=== PATIENT | male | born 1960 | race Hispanic/Latino ===

== ENCOUNTER 2016-10-29 14:36 | Emergency (ER) | payer SELFPAY ==
[2016-10-29 14:49] VITALS: BP 120/60
[2016-10-29] MEDS ORDERED: FUL-GLO OP ONE (16:38)
[2016-10-29] MEDS ORDERED: TETRACAINE 0.5% OD STA (16:38)
--- NOTE | 2016-10-29 18:22 | Emergency Department Report ---
Entered by DYAN MCCLELLAND, acting as scribe for KASANDRA OLIVEROS NP. ED Eye Problem HPI - General Chief complaint: Eye Problems Stated complaint: EYE PAIN Time Seen by Provider: 10/29/16 16:38 Source: patient Mode of arrival: Ambulatory Limitations: No Limitations - History of Present Illness Initial comments: Patient is a 56 y.o. male who presents to ED c/o three day hx of constant, progressively worsening, 10/10, right eye pain that began while he was laying down on the bed in his hotel room. PT states something got into his eye but he is not sure what it was. Patient reports associated watery discharge. Patient denies fever, chills, or N/V. He does not wear glasses or contacts at baseline. Patient states that his Tetanus is UTD. MD chief complaint: eye pain -: days(s) (three days ago) Location: right eye Place: other (hotel room) If Injury: other (felt fb ) Eye Symptoms: redness, pain, discharge Severity scale (0 -10): 10 Consistency: constant Associated Symptoms: other (watery discharge) Treatments Prior to Arrival: none - Related Data Patient Tetanus UTD: Yes Previous Rx's Medication Instructions Recorded Last Taken Type Acetaminophen/Codeine [Tylenol #3] 1 tab PO Q6H PRN #12 tab 10/29/16 Unknown Rx Erythromycin [Erythromycin Ophth 1 cm OD QID 7 Days 10/29/16 Unknown Rx Oint] Sulfamethoxazole/Trimethoprim 1 each PO BID #14 tablet 10/29/16 Unknown Rx [Bactrim DS TAB] Allergies Allergy/AdvReac Type Severity Reaction Status Date / Time No Known Allergies Allergy Verified 10/29/16 14:42 ED Review of Systems Comment: All other systems reviewed and negative Constitutional: denies: chills, fever Eyes: as per HPI, eye pain (right eye), eye discharge (right eye), other ( Negative for left eye pain or discharge) ENT: denies: ear pain, throat pain, dental pain, epistaxis Respiratory: denies: cough, shortness of breath, wheezing Cardiovascular: denies: chest pain, palpitations Gastrointestinal: denies: abdominal pain, nausea, vomiting, diarrhea Genitourinary: denies: urgency, dysuria Musculoskeletal: denies: back pain, joint swelling, arthralgia, myalgia Skin: denies: rash, lesions Neurological: denies: headache, weakness, paresthesias Psychiatric: denies: anxiety, depression ED Past Medical Hx - Past Medical History Hx Diabetes: No Hx Liver Disease: Yes (cirrhosis) Hx Asthma: Yes Hx COPD: Yes Hx Tuberculosis: Yes (treated with meds) Hx HIV: Yes Additional medical history: Hx. of pneumonia - Surgical History Past Surgical History?: No - Social History Smoking Status: Never Smoker Substance Use Type: None - Medications Home Medications: Home Medications Medication Instructions Recorded Confirmed Last Taken Type Acetaminophen/Codeine [Tylenol #3] 1 tab PO Q6H PRN #12 tab 10/29/16 Unknown Rx Erythromycin [Erythromycin Ophth 1 cm OD QID 7 Days 10/29/16 Unknown Rx Oint] Sulfamethoxazole/Trimethoprim 1 each PO BID #14 tablet 10/29/16 Unknown Rx [Bactrim DS TAB] ED Physical Exam - General Limitations: No Limitations General appearance: alert, in no apparent distress - Head Head exam: Present: atraumatic, normocephalic, normal inspection - Eye Eye exam: Present: PERRL, EOMI, conjunctival injection, other (Right eye: Eyelid erythematous, but not edematous. Right conjunctiva is injected. Two corneal abrasions noted on the Wood's exam. Eye is draining. Left eye: Normal. No fb seen ). Absent: normal appearance, periorbital swelling, periorbital tenderness Pupils: Present: normal accommodation - Expanded Eye Exam Expanded Eyelids: Normal Inspection: Left, Erythema: Right Pupils: Regular, Round: Right Sclera/Conjunctival: Injection: Right, Exudate: Right Anterior chamber: Normal Inspection: Right Visual acuity (R) = 20/: 100 Visual acuity (L) = 20/: 30 With correction: No - ENT ENT exam: Present: normal exam, normal orophraynx, mucous membranes moist, normal external ear exam - Neck Neck exam: Present: normal inspection, full ROM. Absent: tenderness, meningismus, lymphadenopathy, thyromegaly - Respiratory Respiratory exam: Present: rhonchi (hx of copd. pt denies sob ). Absent: respiratory distress, chest wall tenderness, accessory muscle use (Normal work of breathing. ) - Cardiovascular Cardiovascular Exam: Present: regular rate, normal rhythm. Absent: systolic murmur, diastolic murmur, rubs, gallop - GI/Abdominal GI/Abdominal exam: Present: soft. Absent: distended, tenderness - Rectal Rectal exam: Present: deferred - Extremities Exam Extremities exam: Present: normal inspection, full ROM, normal capillary refill. Absent: tenderness - Back Exam Back exam: Present: normal inspection, full ROM - Neurological Exam Neurological exam: Present: alert, oriented X3 - Skin Skin exam: Present: warm, dry, intact, normal color. Absent: rash, cyanosis, diaphoretic ED Course Vital Signs 10/29/16 14:46 Temperature 97.8 F Pulse Rate 76 Respiratory 17 Rate Blood Pressure 120/60 O2 Sat by Pulse 99 Oximetry - Reevaluation(s) Reevaluation #1: 10/29/16 17:38 PT states tetracaine helped decrease his pain. PT aware of abnormal PE findings. PT aware of plan of care. PT has no questions at this time. Reevaluation #2: 10/29/16 18:19 PT was originally unable to read eye chart with R eye. PT was holding his R eye shut. PT aware visual acuity was needed and I offered to repeat tetracaine gtt and retry visual acuity. When pt reported decrease in pain, he was able to read the first two lines of [place] chart and then his R eye became painful again. PT refused to attempt to complete visual acuity testing. - Pulse Oximetry Interpretation Digit-Finger Initial Pulse Oximetry Readin Actions Taken: none ED Medical Decision Making - Differential Diagnosis conjunctivitis, corneal abrasion, fb Critical Care Time: No ED Disposition Clinical Impression: Corneal abrasion, right Qualifiers: Encounter type: initial encounter Qualified Code(s): S05.01XA - Injury of conjunctiva and corneal abrasion without foreign body, right eye, initial encounter Disposition: - TO HOME OR SELFCARE Is pt being admited?: No Does the pt Need Aspirin: No Condition: Stable Instructions: Corneal Abrasion (ED) Additional Instructions: No driving or alcohol after taking Tylenol #3 for pain follow up with an eye doctor in 2-3 days Return to ED if worsening or concerns Prescriptions: Acetaminophen/Codeine [Tylenol #3] 1 tab PO Q6H PRN #12 tab PRN Reason: Pain , Severe (7-10) Erythromycin [Erythromycin Ophth Oint] 1 cm OD QID 7 Days Sulfamethoxazole/Trimethoprim [Bactrim DS TAB] 1 each PO BID #14 tablet Referrals: HIRAL KIM MD [Staff Physician] - 3-5 Days SONJA FLANNERY MD [Staff Physician] - 3-5 Days PRIMARY CARE, [Primary Care Provider] - 3-5 Days Time of Disposition: 17:45 This documentation as recorded by the KRYSTIN slater KELLY,accurately reflects the service I personally performed and the decisions made by ,KASANDRA OLIVEROS , [employer].
== END 2016-10-29 18:36 | disposition home or self-care (01) ==
LOC: ED 14:36
DX: S05.01XA Injury of conjunctiva and corneal abrasion without foreign body, right eye, initial encounter (principal); J45.909 Unspecified asthma, uncomplicated; K74.60 Unspecified cirrhosis of liver; J44.9 Chronic obstructive pulmonary disease, unspecified; Z86.11 Personal history of tuberculosis; X58.XXXA Exposure to other specified factors, initial encounter; Y93.89 Activity, other specified; Y92.89 Other specified places as the place of occurrence of the external cause; Y99.8 Other external cause status
CPT/HCPCS: 99283

== ENCOUNTER 2017-07-31 10:16 | Inpatient (IN) | payer OTHER ==
[2017-07-31] MEDS ORDERED: ZOFRAN IV ONE (10:45)
[2017-07-31] MEDS ORDERED: NACL 0.9% 1000 ML 1,000 ML IV ONE (10:45)
[2017-07-31 11:21] LABS: Basophils % (Auto) 0.8 % (0.0-1.8); Eosinophils # (Auto) 0.1 K/mm3 (0.0-0.4); Eosinophils % (Auto) 1.6 % (0.0-4.3); Hematocrit 26.5 % (35.5-45.6); Hemoglobin 8.8 gm/dl (11.8-15.2); Lymphocytes # (Auto) 1.2 K/mm3 (1.2-5.4); Lymphocytes % (Auto) 24.6 % (13.4-35.0); Mean Corpuscular HGB Conc 33 % (32-34); Mean Corpuscular Hemoglobin 36 pg (28-32); Mean Corpuscular Volume 108 fl (84-94); Monocytes # (Auto) 0.4 K/mm3 (0.0-0.8); Monocytes % (Auto) 8.7 % (0.0-7.3); Red Blood Count 2.45 M/mm3 (3.65-5.03); Red Cell Distribution Width 19.4 % (13.2-15.2)
[2017-07-31 11:23] LABS: Alanine Aminotransferase 101 units/L (7-56); Albumin 1.4 g/dL (3.9-5); BUN/Creatinine Ratio 24; Bilirubin,Direct 3.6 mg/dL (0-0.2); Blood Urea Nitrogen 19 mg/dL (9-20); Calcium 7.2 mg/dL (8.4-10.2); Hemolysis Index 4; Lipase 28 units/L (13-60); Platelet Count 68 K/mm3 (140-440)
[2017-07-31 11:36] LABS: INR 2.51 (0.87-1.13)
[2017-07-31 11:37] LABS: Partial Thromboplastin Time 42.2 Sec. (24.2-36.6)
[2017-07-31] MEDS ORDERED: SODIUM BICARBONATE IV ONE ×2 (11:44→12:55)
[2017-07-31] MEDS ORDERED: CALCIUM CHLORIDE IVP ONE (11:44)
[2017-07-31] MEDS ORDERED: D50W (25GM) Syringe IV ONE (11:44)
[2017-07-31] MEDS ORDERED: HumuLIN R IV ONE (11:45)
[2017-07-31] MEDS ORDERED: NACL 0.9% 500 ML 500 ML IV ONE ×2 (11:46→17:28)
[2017-07-31] MEDS ORDERED: PROTONIX IV ONE (11:47)
--- NOTE | 2017-07-31 12:35 | XRay Report ---
AP CHEST: HISTORY: GI bleeding The lungs are hyperinflated with scarring and atelectasis throughout the right upper lobe. These findings are unchanged since 03/01/16. There is no evidence for acute infiltrate, pleural effusion or pneumothorax. Normal heart size. IMPRESSION: Hyperinflation. Apparent chronic collapse or extensive cystic changes in the right upper lobe which is unchanged.
--- NOTE | 2017-07-31 12:37 | History and Physical Report ---
History of Present Illness Chief complaint: I'm bleeding History of present illness: 56 Y Male with AIDS S/P PCP Prophylaxis, TB S/P Full course antibiotic therapy, Unknown CD4 count, Medication Noncompliance, HIV, HBV, Cirrhosis,COPD presents to ED for evaluation. Pt states that he has experienced multiple episodes of rectal bleeding overnight. Pt denies pain. Pt admits to 4-5 loose stools containing blood this morning. EMS notified and upon arrival patient was found to have rectal bleeding, dizziness, and abdominal discomfort. Pt transported to [facility] for further care and evaluation. Pt seen and evaluated in ED and found to have multiple large bloody bowel movements complicated by hypotension with systolic BP in the 80's. GI consulted in ED and patient treated with PRBC transfusion, Octreotide, and supportive care. Pt admitted to ICU. PT denies fever, chills, night sweats, unintentional weight loss chest pain, palpitation, dysuria, frequency, focal weakness, dysarthria, easy bruisability, or rash or bleeding from mucosal membrane, rhinorrhea, epistaxis, earache, tinnitus, blurry vision, eye discharge, anxiety, depression, productive cough, or recent ill contacts. Past History Past Medical History: COPD, HIV/AIDS, liver disease Past Surgical History: No surgical history, Other (reviewed) Social history: single. denies: smoking, alcohol abuse, prescription drug abuse Family history: no significant family history (reviewed) Medications and Allergies Allergies Allergy/AdvReac Type Severity Reaction Status Date / Time No Known Allergies Allergy Verified 10/29/16 14:42 Home Medications Medication Instructions Recorded Confirmed Last Taken Type Acetaminophen/Codeine [Tylenol #3] 1 tab PO Q6H PRN #12 tab 10/29/16 Unknown Rx Erythromycin [Erythromycin Ophth 1 cm OD QID 7 Days tube 10/29/16 Unknown Rx Oint] Sulfamethoxazole/Trimethoprim 1 each PO BID #14 tablet 10/29/16 Unknown Rx [Bactrim DS TAB] Active Meds: Active Medications Octreotide Acetate 500 mcg/ (Sodium Chloride) 101 mls @ 5.05 mls/hr IV TITR ONE ; Protocol Stop: 08/01/17 09:19 Review of Systems Constitutional: no weight loss, no weight gain, no fever, no chills Ears, nose, mouth and throat: no ear pain, no ear discharge, no tinnitis, no decreased hearing, no nose pain Cardiovascular: no chest pain, no orthopnea, no palpitations Respiratory: no cough, no cough with sputum, no excessive sputum, no hemoptysis , no shortness of breath Gastrointestinal: no nausea, no vomiting, no diarrhea, no constipation Genitourinary Male: no dysuria, no hematuria, no flank pain, no discharge, no urinary frequency, no urinary hesitancy Rectal: no pain, no incontinence, no bleeding Musculoskeletal: no neck stiffness, no neck pain, no shooting arm pain, no arm numbness/tingling, no low back pain, no shooting leg pain Integumentary: no rash, no pruritis, no redness, no sores, no wounds Neurological: no head injury, no transient paralysis, no paralysis, no weakness , no parathesias, no numbness, no tingling, no seizures, no syncope Psychiatric: no anxiety, no memory loss, no change in sleep habits, no sleep disturbances, no insomnia, no hypersomnia, no change in appetite, no change in libido, no paranoia, no depression, no hopelessness, no anhedonia, no anxiety attacks Endocrine: no cold intolerance, no heat intolerance, no polyphagia, no excessive thirst, no polydipsia, no polyuria, no nocturia Hematologic/Lymphatic: no easy bruising, no easy bleeding, no lymphadenopathy, no lymphedema Allergic/Immunologic: no urticaria, no allergic rhinitis, no wheezing, no persistent infections, no anaphylaxis, no angioedema, no gluten intolerance, no seasonal allergies Exam - Constitutional Vitals: Temp Pulse Resp BP Pulse Ox 98.3 F 84 20 107/71 100 07/31/17 10:30 07/31/17 10:30 07/31/17 10:53 07/31/17 10:30 07/31/17 10:53 General appearance: Present: mild distress, cachectic, disheveled - EENT Eyes: Present: PERRL ENT: hearing intact, clear oral mucosa - Neck Neck: Present: supple, normal ROM - Respiratory Respiratory effort: normal Respiratory: bilateral: CTA - Cardiovascular Heart Sounds: Present: S1 & S2. Absent: rub, click - Extremities Extremities: pulses symmetrical, No edema Peripheral Pulses: within normal limits - Abdominal General gastrointestinal: Present: soft, non-tender, non-distended, normal bowel sounds Male genitourinary: Present: normal - Integumentary Integumentary: Present: clear, warm, dry - Musculoskeletal Musculoskeletal: gait normal, strength equal bilaterally - Psychiatric Psychiatric: appropriate mood/affect, intact judgment & insight - Neurologic Neurologic: CNII-XII intact, moves all extremities Results - Labs CBC & Chem 7: 07/31/17 10:50 07/31/17 10:50 Labs: Abnormal lab results 07/31/17 07/31/17 07/31/17 Range/Units 10:50 10:50 10:50 RBC 2.45 L (3.65-5.03) M/mm3 Hgb 8.8 L (11.8-15.2) gm/dl Hct 26.5 L (35.5-45.6) % MCV 108 H (84-94) fl MCH 36 H (28-32) pg RDW 19.4 H (13.2-15.2) % Plt Count 68 L (140-440) K/mm3 [place] % (Auto) 8.7 H (0.0-7.3) % PT 28.8 H (12.2-14.9) Sec. INR 2.51 H (0.87-1.13) APTT 42.2 H (24.2-36.6) Sec. Potassium 6.6 H* (3.6-5.0) mmol/L Lactic Acid (0.7-2.0) mmol/L Calcium 7.2 L (8.4-10.2) mg/dL Total Bilirubin 5.70 H (0.1-1.2) mg/dL Direct Bilirubin 3.6 H (0-0.2) mg/dL AST 238 H (5-40) units/L ALT 101 H (7-56) units/L Ammonia (25-60) umol/L Albumin 1.4 L (3.9-5) g/dL Crossmatch 07/31/17 07/31/17 07/31/17 Range/Units 10:50 10:50 10:50 RBC (3.65-5.03) M/mm3 Hgb (11.8-15.2) gm/dl Hct (35.5-45.6) % MCV (84-94) fl MCH (28-32) pg RDW (13.2-15.2) % Plt Count (140-440) K/mm3 [place] % (Auto) (0.0-7.3) % PT (12.2-14.9) Sec. INR (0.87-1.13) APTT (24.2-36.6) Sec. Potassium (3.6-5.0) mmol/L Lactic Acid 3.70 H* (0.7-2.0) mmol/L Calcium (8.4-10.2) mg/dL Total Bilirubin (0.1-1.2) mg/dL Direct Bilirubin (0-0.2) mg/dL AST (5-40) units/L ALT (7-56) units/L Ammonia 69.0 H (25-60) umol/L Albumin (3.9-5) g/dL Crossmatch See Detail Assessment and Plan - Patient Problems (1) GI bleeding Current Visit: Yes Status: Acute Qualifiers: GI bleed type/associated pathology: unspecified gastrointestinal hemorrhage type Qualified Code(s): K92.2 - Gastrointestinal hemorrhage, unspecified Plan to address problem: Admit to ICU, GI consulted in ED, PRBC transfusion, Octreotide drip, serial abdominal exam, NPO after midnight, bowel rest, serial cbc, IV PPI therapy The high probability of a clinically significant, sudden or life threatening deterioration of the [GI, Hematologic, cardiac,renal] system(s) required my full and direct attention, intervention and personal management. The aggregate critical care time was [65] minutes. This time is in addition to time spent performing reported procedures but includes the following: [x] Data Review and interpretation [x] Patient assessment and monitoring of vital signs [x] Documentation [x] Medication orders and management (2) AIDS Current Visit: Yes Status: Acute Plan to address problem: Noncompliant with outpatient therapy, non compliant with PCP prophylaxis, continue antibiotic therapy, outpatient ID f/u care. (3) Cirrhosis Current Visit: Yes Status: Chronic Qualifiers: Hepatic cirrhosis type: alcoholic cirrhosis Ascites presence: without ascites Qualified Code(s): K70.30 - Alcoholic cirrhosis of liver without ascites Plan to address problem: secondary to Chronic liver disease, avoid hepatotoxic agents, supportive care. (4) Coagulopathy Current Visit: Yes Status: Acute Plan to address problem: transfuse FFP, supportive care, monitor active GI bleeding. (5) DVT prophylaxis Current Visit: Yes Status: Acute Plan to address problem: SCD to BLE,.
[2017-07-31] MEDS ORDERED: SODIUM CHLORIDE FLUSH SYRINGE 10 ML IV PRN (12:47)
[2017-07-31] MEDS ORDERED: PROVENTIL IH PRN (12:47)
[2017-07-31] MEDS ORDERED: CALCIUM CHLORIDE IV ONE (12:55)
[2017-07-31] MEDS ORDERED: SandoSTATIN 500 MCG in NACL 0.9% 100 ML IV ONE (13:20)
[2017-07-31] MEDS ORDERED: NACL 0.9% 1000 ML 1,000 ML ONE ×2 (13:59→17:25)
--- NOTE | 2017-07-31 14:20 | Gastroenterology Consultation ---
History of Present Illness - Reason for Consult Consult date: 07/31/17 GI Bleed Requesting physician: RENATE NEUMANN - History of Present Illness The patient is a 56 yo male admitted with hematemesis and hematochezia. He has a hx of GI bleeding in April 2016 with DU and at [place], due to NSAID use, but no hx of variceal bleeding per the patient, despite a hx of cirrhosis for several years (Hep B, not on treatment). He also has HIV and is noncompliant with treatment, except bactrim. He was using some advil recently for a headache. He does not know his current CD4 count. He has no N/V since being in the ER, and his last BM was bloody and about 4 hours ago. He denies severe abdominal pain, and says he is hungry and wants to eat. He has no family hx of GI bleeding, and the patient has had no prior surgery on his abdomen. Past History Past Medical History: HIV/AIDS (noncompliant with [facility]), liver disease ( Hepatitis B/cirrhosis) Past Surgical History: No surgical history Social history: denies: smoking, alcohol abuse, IV drug use Family history: no significant family history Medications and Allergies Allergies Allergy/AdvReac Type Severity Reaction Status Date / Time No Known Allergies Allergy Verified 10/29/16 14:42 Home Medications Medication Instructions Recorded Confirmed Last Taken Type Acetaminophen/Codeine [Tylenol #3] 1 tab PO Q6H PRN #12 tab 10/29/16 Unknown Rx Erythromycin [Erythromycin Ophth 1 cm OD QID 7 Days tube 10/29/16 Unknown Rx Oint] Sulfamethoxazole/Trimethoprim 1 each PO BID #14 tablet 10/29/16 Unknown Rx [Bactrim DS TAB] Active Meds: Active Medications Acetaminophen/Codeine Phosphate (Tylenol #3) 1 tab PO Q6H PRN PRN Reason: Pain , Severe (7-10) Albuterol (Proventil) 2.5 mg IH Q3HRT PRN PRN Reason: Shortness Of Breath Octreotide Acetate 500 mcg/ (Sodium Chloride) 101 mls @ 5.05 mls/hr IV TITR ONE ; Protocol Stop: 08/01/17 09:19 Last Admin: 07/31/17 14:10 Dose: 25 mcg/hr, 5.05 mls/hr Pantoprazole Sodium (Protonix) 40 mg IV BID RENETTA Sodium Chloride (Sodium Chloride Flush Syringe 10 Ml) 10 ml IV BID RENETTA Sodium Chloride (Sodium Chloride Flush Syringe 10 Ml) 10 ml IV PRN PRN PRN Reason: LINE FLUSH Trimethoprim/Sulfamethoxazole (Bactrim Ds) 1 each PO BID RENETTA --I HAVE REVIEWED AND RECONCILED MEDICATIONS-- Review of Systems - Review of Systems All systems: negative (as noted in the HPI.) Exam - Constitutional Vital Signs: Temp Pulse Resp BP Pulse Ox 98.3 F 84 20 108/51 100 07/31/17 10:30 07/31/17 10:30 07/31/17 10:53 07/31/17 13:52 07/31/17 13:52 General appearance: no acute distress - EENT Eyes: PERRL, EOM intact ENT: hearing intact, clear oral mucosa, no thrush - Neck Neck: supple, normal ROM - Respiratory Respiratory effort: normal Respiratory: bilateral: CTA - Breasts Breasts: deferred - Cardiovascular Rhythm: regular Heart Sounds: Present: S1 & S2 - Gastrointestinal General gastrointestinal: Present: soft, non-tender, non-distended - Integumentary Integumentary: Present: clear, warm, dry - Neurologic Neurological: alert and oriented x3 - Labs CBC & Chem 7: 07/31/17 10:50 07/31/17 10:50 Lab Results: Laboratory Results - last 24 hr 07/31/17 07/31/17 07/31/17 10:50 10:50 10:50 WBC 5.0 RBC 2.45 L Hgb 8.8 L Hct 26.5 L MCV 108 H MCH 36 H MCHC 33 RDW 19.4 H Plt Count 68 L Lymph % (Auto) 24.6 [place] % (Auto) 8.7 H Eos % (Auto) 1.6 Baso % (Auto) 0.8 Lymph # 1.2 [place] # 0.4 Eos # 0.1 Baso # 0.0 Seg Neutrophils % 64.3 Seg Neutrophils # 3.2 PT 28.8 H INR 2.51 H APTT 42.2 H Sodium 137 Potassium 6.6 H* Chloride 106.4 Carbon Dioxide 29 Anion Gap 8 BUN 19 Creatinine 0.8 Estimated GFR > 60 BUN/Creatinine Ratio 24 Glucose 88 Lactic Acid Calcium 7.2 L Magnesium 1.90 Total Bilirubin 5.70 H Direct Bilirubin 3.6 H Indirect Bilirubin 2.1 AST 238 H ALT 101 H Alkaline Phosphatase 102 Ammonia Total Protein 6.9 Albumin 1.4 L Albumin/Globulin Ratio 0.3 Lipase 28 Plasma/Serum Alcohol Blood Type Antibody Screen Crossmatch 07/31/17 07/31/17 07/31/17 10:50 10:50 10:50 WBC RBC Hgb Hct MCV MCH MCHC RDW Plt Count Lymph % (Auto) [place] % (Auto) Eos % (Auto) Baso % (Auto) Lymph # [place] # Eos # Baso # Seg Neutrophils % Seg Neutrophils # PT INR APTT Sodium Potassium Chloride Carbon Dioxide Anion Gap BUN Creatinine Estimated GFR BUN/Creatinine Ratio Glucose Lactic Acid 3.70 H* Calcium Magnesium Total Bilirubin Direct Bilirubin Indirect Bilirubin AST ALT Alkaline Phosphatase Ammonia 69.0 H Total Protein Albumin Albumin/Globulin Ratio Lipase Plasma/Serum Alcohol Blood Type O POSITIVE Antibody Screen Negative Crossmatch See Detail 07/31/17 12:56 WBC RBC Hgb Hct MCV MCH MCHC RDW Plt Count Lymph % (Auto) [place] % (Auto) Eos % (Auto) Baso % (Auto) Lymph # [place] # Eos # Baso # Seg Neutrophils % Seg Neutrophils # PT INR APTT Sodium Potassium Chloride Carbon Dioxide Anion Gap BUN Creatinine Estimated GFR BUN/Creatinine Ratio Glucose Lactic Acid Calcium Magnesium Total Bilirubin Direct Bilirubin Indirect Bilirubin AST ALT Alkaline Phosphatase Ammonia Total Protein Albumin Albumin/Globulin Ratio Lipase Plasma/Serum Alcohol < 0.01 Blood Type Antibody Screen Crossmatch Assessment and Plan - Patient Problems (1) GI bleeding Current Visit: Yes Status: Acute Qualifiers: GI bleed type/associated pathology: unspecified gastrointestinal hemorrhage type Qualified Code(s): K92.2 - Gastrointestinal hemorrhage, unspecified Plan to address problem: - Hx of /DU but also ESLD with varices on prior imaging (but no hx of variceal bleeding). - Will continue protonix/octreotide. - Patient to get PRBC/FFP, and recheck of K. - Plan upper endoscopy when clinically appropriate.
[2017-07-31] MEDS: PROTONIX IV SCH ×2 (15:02→21:14)
--- NOTE | 2017-07-31 15:21 | Emergency Department Report ---
ED General Adult HPI - General Chief complaint: Abdominal Pain Stated complaint: ABD PAIN Time Seen by Provider: 07/31/17 10:43 Source: patient, EMS Mode of arrival: Stretcher Limitations: No Limitations - History of Present Illness Initial comments: This is a 56-year-old man who presents for evaluation of GI bleeding. Patient states that he has been passing bright red blood per rectum. He states this morning he vomited dark material. He is not complaining of abdominal pain. He is a poor historian. He has a history of HIV and is noncompliant with his medication. He also has a history of cirrhosis secondary to hepatitis B and COPD. He is not known to have esophageal varices. However the patient cannot really recount whether he ever had upper endoscopy but seems to think that he had a normal colonoscopy. He is probably not a very reliable historian. -: days(s) Consistency: intermittent Improves with: none Worsens with: none Associated Symptoms: nausea/vomiting Treatments Prior to Arrival: none - Related Data Previous Rx's Medication Instructions Recorded Last Taken Type Acetaminophen/Codeine [Tylenol #3] 1 tab PO Q6H PRN #12 tab 10/29/16 Unknown Rx Erythromycin [Erythromycin Ophth 1 cm OD QID 7 Days tube 10/29/16 Unknown Rx Oint] Sulfamethoxazole/Trimethoprim 1 each PO BID #14 tablet 10/29/16 Unknown Rx [Bactrim DS TAB] Allergies Allergy/AdvReac Type Severity Reaction Status Date / Time No Known Allergies Allergy Verified 10/29/16 14:42 ED Review of Systems ROS: Stated complaint: ABD PAIN Other details as noted in HPI Constitutional: denies: chills, fever Eyes: denies: eye pain, eye discharge, vision change ENT: denies: ear pain, throat pain Respiratory: denies: cough, shortness of breath, wheezing Cardiovascular: denies: chest pain, palpitations Endocrine: no symptoms reported Gastrointestinal: nausea, vomiting, hematochezia. denies: abdominal pain Genitourinary: denies: urgency, dysuria Musculoskeletal: denies: back pain, joint swelling, arthralgia Skin: denies: rash, lesions Neurological: denies: headache, weakness, paresthesias Psychiatric: denies: anxiety, depression Hematological/Lymphatic: denies: easy bleeding, easy bruising ED Past Medical Hx - Past Medical History Hx Diabetes: No Hx Liver Disease: Yes (cirrhosis) Hx Asthma: Yes Hx COPD: Yes Hx Tuberculosis: Yes (treated with meds) Hx HIV: Yes Additional medical history: Hx. of pneumonia - Social History Smoking Status: Never Smoker Substance Use Type: None - Medications Home Medications: Home Medications Medication Instructions Recorded Confirmed Last Taken Type Acetaminophen/Codeine [Tylenol #3] 1 tab PO Q6H PRN #12 tab 10/29/16 Unknown Rx Erythromycin [Erythromycin Ophth 1 cm OD QID 7 Days tube 10/29/16 Unknown Rx Oint] Sulfamethoxazole/Trimethoprim 1 each PO BID #14 tablet 10/29/16 Unknown Rx [Bactrim DS TAB] ED Physical Exam - General Limitations: No Limitations General appearance: alert, in no apparent distress - Head Head exam: Present: atraumatic, normocephalic - Eye Eye exam: Present: scleral icterus. Absent: PERRL, EOMI - ENT ENT exam: Present: mucous membranes moist - Neck Neck exam: Present: normal inspection. Absent: tenderness, meningismus - Respiratory Respiratory exam: Present: normal lung sounds bilaterally. Absent: respiratory distress - Cardiovascular Cardiovascular Exam: Present: regular rate, normal rhythm. Absent: systolic murmur, diastolic murmur, rubs, gallop - GI/Abdominal GI/Abdominal exam: Present: soft, normal bowel sounds, organomegaly ( hepatomegaly or ascites not evident). Absent: distended, tenderness, guarding, rebound, rigid - Rectal Rectal exam: Present: other (patient has some blood blood on his garments but no active rectal bleeding) - Extremities Exam Extremities exam: Present: other (club fingers bilaterally) - Back Exam Back exam: Present: normal inspection - Neurological Exam Neurological exam: Present: alert, oriented X3, CN II-XII intact. Absent: motor sensory deficit - Psychiatric Psychiatric exam: Present: anxious, flat affect - Skin Skin exam: Present: warm, dry, intact, normal color. Absent: rash ED Course Vital Signs 07/31/17 07/31/17 07/31/17 10:22 10:30 10:32 Temperature 98.3 F Pulse Rate 84 Respiratory Rate Blood Pressure 107/71 O2 Sat by Pulse 100 98 100 Oximetry 07/31/17 07/31/17 07/31/17 10:46 10:53 11:00 Temperature Pulse Rate Respiratory 20 Rate Blood Pressure 84/56 O2 Sat by Pulse 100 100 100 Oximetry 04/24/18 04/24/18 04/24/18 11:16 11:30 11:46 Temperature Pulse Rate Respiratory Rate Blood Pressure 93/50 99/69 99/69 O2 Sat by Pulse 99 97 98 Oximetry 07/31/17 07/31/17 07/31/17 12:00 12:16 12:30 Temperature Pulse Rate Respiratory Rate Blood Pressure 99/64 84/56 100/61 O2 Sat by Pulse 99 99 100 Oximetry 07/31/17 07/31/17 07/31/17 12:46 13:00 13:30 Temperature 98.5 F Pulse Rate 70 Respiratory 18 Rate Blood Pressure 99/69 108/51 101/50 O2 Sat by Pulse 100 100 Oximetry 07/31/17 07/31/17 07/31/17 13:45 13:52 14:00 Temperature 98.5 F 98.5 F Pulse Rate 68 71 Respiratory 18 20 Rate Blood Pressure 98/52 108/51 101/58 O2 Sat by Pulse 100 100 Oximetry 07/31/17 07/31/17 07/31/17 14:02 14:15 14:30 Temperature Pulse Rate 55 L 80 87 Respiratory 11 L 21 14 Rate Blood Pressure 90/48 98/52 O2 Sat by Pulse 93 Oximetry 07/31/17 07/31/17 14:45 14:50 Temperature 98.4 F Pulse Rate 71 68 Respiratory 17 18 Rate Blood Pressure 101/55 94/50 O2 Sat by Pulse 97 Oximetry - Reevaluation(s) Reevaluation #1: The patient was given hyperkalemia cocktail. He was transfused. His platelet count was also noted to be 16,000. He had a coagulopathy and FFP was ordered. He was empirically placed on octreotide after discussion of the case with Dr. Daniel. At this time he has already been admitted to the hospital by Dr. Saavedra and has been seen by Dr. daniel. 07/31/17 15:28 ED Medical Decision Making - Lab Data Result diagrams: 07/31/17 10:50 07/31/17 10:50 Laboratory Results - last 24 hr 07/31/17 07/31/17 07/31/17 10:50 10:50 10:50 WBC 5.0 RBC 2.45 L Hgb 8.8 L Hct 26.5 L MCV 108 H MCH 36 H MCHC 33 RDW 19.4 H Plt Count 68 L Lymph % (Auto) 24.6 [place] % (Auto) 8.7 H Eos % (Auto) 1.6 Baso % (Auto) 0.8 Lymph # 1.2 Ward # 0.4 Eos # 0.1 Baso # 0.0 Seg Neutrophils % 64.3 Seg Neutrophils # 3.2 PT 28.8 H INR 2.51 H APTT 42.2 H Sodium 137 Potassium 6.6 H* Chloride 106.4 Carbon Dioxide 29 Anion Gap 8 BUN 19 Creatinine 0.8 Estimated GFR > 60 BUN/Creatinine Ratio 24 Glucose 88 Lactic Acid Calcium 7.2 L Magnesium 1.90 Total Bilirubin 5.70 H Direct Bilirubin 3.6 H Indirect Bilirubin 2.1 AST 238 H ALT 101 H Alkaline Phosphatase 102 Ammonia Total Protein 6.9 Albumin 1.4 L Albumin/Globulin Ratio 0.3 Lipase 28 Blood Type Antibody Screen Crossmatch 07/31/17 07/31/17 07/31/17 10:50 10:50 10:50 WBC RBC Hgb Hct MCV MCH MCHC RDW Plt Count Lymph % (Auto) [place] % (Auto) Eos % (Auto) Baso % (Auto) Lymph # [place] # Eos # Baso # Seg Neutrophils % Seg Neutrophils # PT INR APTT Sodium Potassium Chloride Carbon Dioxide Anion Gap BUN Creatinine Estimated GFR BUN/Creatinine Ratio Glucose Lactic Acid 3.70 H* Calcium Magnesium Total Bilirubin Direct Bilirubin Indirect Bilirubin AST ALT Alkaline Phosphatase Ammonia 69.0 H Total Protein Albumin Albumin/Globulin Ratio Lipase Blood Type O POSITIVE Antibody Screen Negative Crossmatch See Detail - EKG Data -: EKG Interpreted by Or EKG shows normal: sinus rhythm, axis, intervals, QRS complexes, ST-T waves Rate: normal - EKG Data Interpretation: no acute changes - Radiology Data Radiology results: report reviewed (extensive cystic changes of the right upper lobe unchanged from previous x-ray no acute process per radiologist) Critical Care Time: Yes Critical care time in (mins) excluding proc time.: 90 Critical care attestation.: If time is entered above; I have spent that time in minutes in the direct care of this critically ill patient, excluding procedure time. ED Disposition Clinical Impression: History of HIV infection, Thrombocytopenia, Hyperkalemia, Elevated lactic acid level, Coagulopathy GI bleeding Qualifiers: GI bleed type/associated pathology: unspecified gastrointestinal hemorrhage type Qualified Code(s): K92.2 - Gastrointestinal hemorrhage, unspecified Cirrhosis Qualifiers: Hepatic cirrhosis type: alcoholic cirrhosis Ascites presence: without ascites Qualified Code(s): K70.30 - Alcoholic cirrhosis of liver without ascites Disposition: -09 OP ADMIT IP TO THIS HOSP Is pt being admited?: Yes Does the pt Need Aspirin: No Time of Disposition: 15:32
[2017-07-31] MEDS ORDERED: DIPRIVAN 10 MG/ML IV ONE ×2 (17:28)
[2017-07-31] MEDS ORDERED: XYLOCAINE MPF 2% ONE (17:30)
--- NOTE | 2017-07-31 17:47 | Anesthesia Day of Surgery ---
Anesthesia Day of Surgery - Day of Surgery Patient Examined: Yes Patient H&P Reviewed: Yes Patient is NPO: Yes
--- NOTE | 2017-07-31 17:47 | Anesthesia Consultation ---
Anesthesia Consult and Med Hx Date of service: 07/31/17 - Airway Anesthetic Teeth Evaluation: Partials (upper) ROM Head & Neck: Adequate Mental/Hyoid Distance: Adequate Mallampati Class: Class II Intubation Access Assessment: Probably Good - Pre-Operative Health Status ASA Pre-Surgery Classification: ASA3, Emergency Proposed Anesthetic Plan: MAC - Pulmonary Hx Asthma: Yes COPD: Yes - Gastrointestinal Hx Ulcer: Yes (h/o peptic ulcers) - Endocrine Hx End Stage Renal Disease: No Hx Cirrhosis: Yes Hx Liver Disease: Yes (cirrhosis) - Hematic Hx Anemia: Yes - Additional Comments Anesthesia Medical History Comments: upper GI blleed, HIV, noncomplient with treatment
--- NOTE | 2017-07-31 18:21 | Post Operative Note ---
Pre-op diagnosis: GI bleed Post-op diagnosis: other (DU x 2, hiatal hernia, gastritis, esophagitis) Findings: 1. No active bleeding/clots 2. 2 large (5-7mm) pigment-based ulcers in duodenum without visible vessel seen , but very edematous mucosa 3. Moderate erosive gastritis, cold bx of antrum for H pylori 4. Medium hiatal hernia 5. LA Grade C erosive esophagitis Procedure: EGD with cold biopsy Anesthesia: MAC Surgeon: MARIA ESTHER OSBORNE Estimated blood loss: minimal Pathology: list (1. Gastric antrum) Specimen disposition: to lab Condition: critical Disposition: ICU (Recs: 1. Continue NPO except meds and ice chips. 2. Continue octreotide tonight (d/c tomorrow if stable as no varices present). 3. Continue IV protonix. 4. D/C all NSAIDs. 5. 2nd look EGD tomorrow when edema improved; consider IR embolization if necessary given cirrhosis and ulcers.)
[2017-07-31] MEDS ORDERED: NACL 0.9% 500 ML 500 ML ONE (19:36)
--- NOTE | 2017-07-31 19:46 | Operative Report ---
ENDOSCOPY REPORT PROCEDURE PERFORMED: Esophagogastroduodenoscopy with cold biopsy. PREOPERATIVE DIAGNOSIS: Gastrointestinal bleeding. POSTOPERATIVE DIAGNOSES: Duodenal ulcers, hiatal hernia, esophagitis, gastritis. ENDOSCOPIST: Familia Daniel M.D. INSTRUMENT: adhoclabs video endoscope. MEDICATIONS: MAC anesthesia by [facility]hesia [facility]. COMPLICATIONS: No apparent complications. ESTIMATED BLOOD LOSS: Minimal. SPECIMENS: Gastric antrum. IMPLANTS: None. ASSISTANTS: None. CONDITION AT COMPLETION: Stable. TECHNIQUE: The patient was informed of the risks and benefits of the procedure. He signed the informed consent to proceed. He was placed in left lateral decubitus position. The above sedative medications were given. His vital signs remained stable throughout the procedure. The instrument was advanced from the mouth to the second portion of the duodenum under direct visualization. At that point, the bowel was insufflated and the endoscope was slowly withdrawn. FINDINGS: 1. No active bleeding or blood clots in the upper GI tract. 2. Two large (5 mm -- 7 mm) pigmented based ulcers in the duodenum without a visible vessel seen. Subsequently, however, the tissue surrounding the ulcers was very edematous and visible vessel at the base may have been missed. 3. Moderate erosive gastritis, status post cold biopsy of the antrum for H. pylori. 4. Medium sized hiatal hernia. 5. LA grade C erosive esophagitis. RECOMMENDATIONS: 1. Continue nothing by mouth status except for medications and ice chips. 2. Continue octreotide tonight, but may discontinue it tomorrow if the patient is stable since he has no evidence of varices. 3. Continue IV Protonix. 4. Discontinue all nonsteroidal anti-inflammatory drugs. 5. Second look upper endoscopy tomorrow when the edema in the duodenum has improved; consider Interventional Radiology embolization if necessary given cirrhosis and active ulcer disease. JOB# [id number] DREW/NTS
[2017-07-31 20:38] LABS: Amphetamine Screen,Urine PRESUMPTIVE NEGATIVE; Benzodiazepines Screen,Urine PRESUMPTIVE NEGATIVE; Cannabinoid Screen,Urine PRESUMPTIVE NEGATIVE; Cocaine Screen,Urine PRESUMPTIVE NEGATIVE; Methadone Screen,Urine PRESUMPTIVE NEGATIVE; Opiate Screen,Urine PRESUMPTIVE NEGATIVE
[2017-07-31] MEDS: BACTRIM DS PO SCH (21:14)
[2017-07-31] MEDS: SODIUM CHLORIDE FLUSH SYRINGE 10 ML IV SCH (22:11)
[2017-07-31] MEDS: CARAFATE PO SCH (22:57)
[2017-07-31] MEDS ORDERED: SandoSTATIN 500 MCG in NACL 0.9% 100 ML IV SCH (23:00)
[2017-08-01] MEDS: CARAFATE PO SCH ×4 (01:22→18:36)
[2017-08-01] MEDS: TYLENOL #3 PO PRN (04:10)
[2017-08-01] MEDS: TESSALON PERLES PO PRN (04:16)
[2017-08-01 05:16] LABS: Basophils % (Auto) 0.3 % (0.0-1.8); Eosinophils # (Auto) 0.2 K/mm3 (0.0-0.4); Hemoglobin 7.8 gm/dl (11.8-15.2); Lymphocytes # (Auto) 2.1 K/mm3 (1.2-5.4); Lymphocytes % (Auto) 32.2 % (13.4-35.0); Mean Corpuscular HGB Conc 34 % (32-34); Mean Corpuscular Hemoglobin 35 pg (28-32); Mean Corpuscular Volume 102 fl (84-94); Monocytes # (Auto) 0.6 K/mm3 (0.0-0.8); Monocytes % (Auto) 9.6 % (0.0-7.3); Red Blood Count 2.26 M/mm3 (3.65-5.03)
[2017-08-01 05:17] LABS: Platelet Count 50 K/mm3 (140-440); Red Cell Distribution Width 20.4 % (13.2-15.2)
[2017-08-01 05:39] LABS: BUN/Creatinine Ratio 32; Blood Urea Nitrogen 19 mg/dL (9-20); Calcium 7.2 mg/dL (8.4-10.2); Hemolysis Index 0
--- NOTE | 2017-08-01 08:20 | Progress Note ---
Assessment and Plan Assessment and plan: --Acute upper GI bleeding; Status post EGD 2 large (5-7mm) pigment-based ulcers in duodenum without visible vessel seen, Moderate erosive gastritis, cold bx of antrum for H pylori Medium hiatal hernia LA Grade C erosive esophagitis Possible colonoscopy today --Acute blood loss anemia secondary to upper GI bleeding; Requiring blood transfusion, status post PRBC transfusion Closely monitor H&H, transfuse as needed --HIV AIDS; Stable , patient will follow with health Department upon discharge , ID consultation as needed --Cirrhosis liver; LFTs trending down, consider GI evaluation if needed --Severe protein calorie malnutrition; nutrition supplements and supportive care --DVT prophylaxis; SCD Patient may be transferred out of ICU is stable after endoscopy Plan of care discussed with the patient and his nurse. Critical care time 35 minutes History Interval history: Patient seen and examined medical records reviewed Admitted with GI bleeding, had EGD, received 2 units PRBC Patient feels better,Patient complaints of rectal bleeding Hemoglobin today is 7.8 Vital signs reviewed Hospitalist Physical - Constitutional Vitals: Temp Pulse Resp BP Pulse Ox 98.2 F 88 24 118/50 89 08/01/17 04:00 08/01/17 08:00 08/01/17 08:00 08/01/17 08:00 08/01/17 08:00 General appearance: Present: no acute distress, cachectic, disheveled - EENT Eyes: Present: PERRL, EOM intact - Neck Neck: Present: supple, normal ROM - Respiratory Respiratory effort: normal Respiratory: bilateral: diminished, negative: rales, rhonchi, wheezing - Cardiovascular Rhythm: regular Heart Sounds: Present: S1 & S2 - Extremities Extremities: no ischemia, No edema - Abdominal General gastrointestinal: soft, non-tender, non-distended, normal bowel sounds - Integumentary Integumentary: Present: clear, warm - Psychiatric Psychiatric: appropriate mood/affect, cooperative - Neurologic Neurologic: CNII-XII intact, moves all extremities Results - Labs CBC & Chem 7: 08/01/17 04:01 08/01/17 04:01 Labs: Laboratory Last Values WBC 6.5 K/mm3 (4.5-11.0) 08/01/17 04:01 RBC 2.26 M/mm3 (3.65-5.03) L 08/01/17 04:01 Hgb 7.8 gm/dl (11.8-15.2) L 08/01/17 04:01 POC Hgb 6.8 (12-17) L 07/31/17 17:09 Hct 23.0 % (35.5-45.6) L 08/01/17 04:01 POC Hct 20 (38-51) L 07/31/17 17:09 MCV 102 fl (84-94) H 08/01/17 04:01 MCH 35 pg (28-32) H 08/01/17 04:01 MCHC 34 % (32-34) 08/01/17 04:01 RDW 20.4 % (13.2-15.2) H 08/01/17 04:01 Plt Count 50 K/mm3 (140-440) L 08/01/17 04:01 Lymph % (Auto) 32.2 % (13.4-35.0) 08/01/17 04:01 [place] % (Auto) 9.6 % (0.0-7.3) H 08/01/17 04:01 Eos % (Auto) 3.0 % (0.0-4.3) 08/01/17 04:01 Baso % (Auto) 0.3 % (0.0-1.8) 08/01/17 04:01 Lymph # 2.1 K/mm3 (1.2-5.4) 08/01/17 04:01 [place] # 0.6 K/mm3 (0.0-0.8) 08/01/17 04:01 Eos # 0.2 K/mm3 (0.0-0.4) 08/01/17 04:01 Baso # 0.0 K/mm3 (0.0-0.1) 08/01/17 04:01 Seg Neutrophils % 54.9 % (40.0-70.0) 08/01/17 04:01 Seg Neutrophils # 3.6 K/mm3 (1.8-7.7) 08/01/17 04:01 PT 28.8 Sec. (12.2-14.9) H 07/31/17 10:50 INR 2.51 (0.87-1.13) H 07/31/17 10:50 APTT 42.2 Sec. (24.2-36.6) H 07/31/17 10:50 POC Sodium 147 mmol/L (138-146) H 07/31/17 17:09 POC Potassium 5.0 (3.5-4.9) H 07/31/17 17:09 POC Chloride 103 (98-109) 07/31/17 17:09 Sodium 142 mmol/L (137-145) 08/01/17 04:01 Potassium 5.0 mmol/L (3.6-5.0) D 08/01/17 04:01 Chloride 109.6 mmol/L (98-107) H 08/01/17 04:01 Carbon Dioxide 29 mmol/L (22-30) 08/01/17 04:01 Anion Gap 8 mmol/L 08/01/17 04:01 POC BUN 24 mg/dl (8-26) 07/31/17 17:09 BUN 19 mg/dL (9-20) 08/01/17 04:01 Creatinine 0.6 mg/dL (0.8-1.5) L 08/01/17 04:01 Estimated GFR > 60 ml/min 08/01/17 04:01 BUN/Creatinine Ratio 32 % 08/01/17 04:01 Glucose 73 mg/dL (75-100) L 08/01/17 04:01 POC Glucose 110 (70-105) H 07/31/17 17:09 Lactic Acid 3.70 mmol/L (0.7-2.0) H* 07/31/17 10:50 Calcium 7.2 mg/dL (8.4-10.2) L 08/01/17 04:01 Magnesium 1.90 mg/dL (1.7-2.3) 07/31/17 10:50 Total Bilirubin 5.70 mg/dL (0.1-1.2) H 07/31/17 10:50 Direct Bilirubin 3.6 mg/dL (0-0.2) H 07/31/17 10:50 Indirect Bilirubin 2.1 mg/dL 07/31/17 10:50 AST 238 units/L (5-40) H 07/31/17 10:50 ALT 101 units/L (7-56) H 07/31/17 10:50 Alkaline Phosphatase 102 units/L (35-129) 07/31/17 10:50 Ammonia 69.0 umol/L (25-60) H 07/31/17 10:50 Total Protein 6.9 g/dL (6.3-8.2) 07/31/17 10:50 Albumin 1.4 g/dL (3.9-5) L 07/31/17 10:50 Albumin/Globulin Ratio 0.3 % 07/31/17 10:50 Lipase 28 units/L (13-60) 07/31/17 10:50 Urine Opiates Screen Presumptive negative 07/31/17 16:54 Urine Methadone Screen Presumptive negative 07/31/17 16:54 Ur Barbiturates Screen Presumptive negative 07/31/17 16:54 Ur Phencyclidine Scrn Presumptive negative 07/31/17 16:54 Ur Amphetamines Screen Presumptive negative 07/31/17 16:54 U Benzodiazepines Scrn Presumptive negative 07/31/17 16:54 Urine Cocaine Screen Presumptive negative 07/31/17 16:54 U Marijuana (THC) Screen Presumptive negative 07/31/17 16:54 Drugs of Abuse Note Disclamer 07/31/17 16:54 Plasma/Serum Alcohol < 0.01 % (0-0.07) 07/31/17 12:56 Hep Bs Antigen Reactive (Negative) 08/01/17 04:01 Hepatitis C Antibody Non-reactive (NonReactive) 08/01/17 04:01 Blood Type O POSITIVE 07/31/17 10:50 Antibody Screen Negative 07/31/17 10:50 Crossmatch See Detail 07/31/17 10:50
[2017-08-01 09:05] LABS: Albumin 1.5 g/dL (3.9-5); Bilirubin,Direct 3.4 mg/dL (0-0.2)
[2017-08-01] MEDS: PROTONIX IV SCH (09:19)
[2017-08-01] MEDS: THERAGRAN-M Tab PO SCH (09:19)
[2017-08-01] MEDS: BACTRIM DS PO SCH (09:20)
[2017-08-01] MEDS: SODIUM CHLORIDE FLUSH SYRINGE 10 ML IV SCH ×2 (10:00→23:25)
[2017-08-01] MEDS ORDERED: WATER FOR IRRIG STERILE IR ONE (10:30)
[2017-08-01] MEDS ORDERED: NACL 0.9% 1000 ML 1,000 ML ONE (10:31)
--- NOTE | 2017-08-01 11:20 | Consultation ---
History of Present Illness - Reason for Consult Consult date: 08/01/17 GI bleed Requesting physician: MARIA ESTHER OSBORNE - History of Present Illness 56 y/o male, mulitple comorbid diseases admitted with GI bleed. Upper Endo done yesterday which showed duodenal ulcers but no active bleeding. H/H stable so far. had 3 BM's. 1 was bloody. Otherwise no issues. Past History Past Medical History: HIV/AIDS (noncompliant with [facility]), liver disease ( Hepatitis B/cirrhosis) Past Surgical History: No surgical history Social history: denies: smoking, alcohol abuse, IV drug use Family history: no significant family history Medications and Allergies Allergies Allergy/AdvReac Type Severity Reaction Status Date / Time No Known Allergies Allergy Verified 10/29/16 14:42 Home Medications Medication Instructions Recorded Confirmed Last Taken Type Sulfamethoxazole/Trimethoprim 1 each PO BID #14 tablet 10/29/16 07/31/17 Unknown Rx [Bactrim DS TAB] Active Meds: Active Medications Acetaminophen/Codeine Phosphate (Tylenol #3) 1 tab PO Q6H PRN PRN Reason: Pain , Severe (7-10) Last Admin: 08/01/17 04:10 Dose: 1 tab Albuterol (Proventil) 2.5 mg IH Q3HRT PRN PRN Reason: Shortness Of Breath Benzonatate (Tessalon Perles) 100 mg PO Q6H PRN PRN Reason: Cough Last Admin: 08/01/17 04:16 Dose: 100 mg Multivitamins/Minerals (Theragran-M Tab) 1 each PO QDAY [facility] Last Admin: 08/01/17 09:19 Dose: 1 each Pantoprazole Sodium (Protonix) 40 mg IV BID [facility] Last Admin: 08/01/17 09:19 Dose: 40 mg Sodium Chloride (Sodium Chloride Flush Syringe 10 Ml) 10 ml IV BID [facility] Last Admin: 07/31/17 22:11 Dose: 10 ml Sodium Chloride (Sodium Chloride Flush Syringe 10 Ml) 10 ml IV PRN PRN PRN Reason: LINE FLUSH Sucralfate (Carafate) 1 gm PO Q6HR [facility] Last Admin: 08/01/17 05:59 Dose: 1 gm Trimethoprim/Sulfamethoxazole (Bactrim Ds) 1 each PO DAILY [facility] Review of Systems All systems: negative Exam - Constitutional Vitals: Temp Pulse Resp BP Pulse Ox 98.1 F 88 24 118/50 99 08/01/17 08:21 08/01/17 08:00 08/01/17 08:00 08/01/17 08:00 08/01/17 08:39 General appearance: Present: no acute distress, cachectic - EENT Eyes: Present: PERRL ENT: hearing intact - Neck Neck: Present: supple, normal ROM - Respiratory Respiratory effort: normal Respiratory: bilateral: CTA - Cardiovascular Rhythm: regular Heart Sounds: Present: S1 & S2 - Extremities Extremities: no ischemia - Abdominal General gastrointestinal: Present: soft, non-tender, normal bowel sounds Male genitourinary: Present: deferred - Rectal Rectal Exam: deferred Results - Labs CBC & Chem 7: 08/01/17 04:01 08/01/17 04:01 Labs: Abnormal lab results 07/31/17 07/31/17 07/31/17 Range/Units 10:50 10:50 10:50 RBC 2.45 L (3.65-5.03) M/mm3 Hgb 8.8 L (11.8-15.2) gm/dl POC Hgb (12-17) Hct 26.5 L (35.5-45.6) % POC Hct (38-51) MCV 108 H (84-94) fl MCH 36 H (28-32) pg RDW 19.4 H (13.2-15.2) % Plt Count 68 L (140-440) K/mm3 [place] % (Auto) 8.7 H (0.0-7.3) % PT 28.8 H (12.2-14.9) Sec. INR 2.51 H (0.87-1.13) APTT 42.2 H (24.2-36.6) Sec. POC Sodium (138-146) mmol/L POC Potassium (3.5-4.9) Potassium 6.6 H* (3.6-5.0) mmol/L Chloride (98-107) mmol/L Creatinine (0.8-1.5) mg/dL Glucose (75-100) mg/dL POC Glucose (70-105) Lactic Acid (0.7-2.0) mmol/L Calcium 7.2 L (8.4-10.2) mg/dL Total Bilirubin 5.70 H (0.1-1.2) mg/dL Direct Bilirubin 3.6 H (0-0.2) mg/dL AST 238 H (5-40) units/L ALT 101 H (7-56) units/L Ammonia (25-60) umol/L Total Protein (6.3-8.2) g/dL Albumin 1.4 L (3.9-5) g/dL Crossmatch 07/31/17 07/31/17 07/31/17 Range/Units 10:50 10:50 10:50 RBC (3.65-5.03) M/mm3 Hgb (11.8-15.2) gm/dl POC Hgb (12-17) Hct (35.5-45.6) % POC Hct (38-51) MCV (84-94) fl MCH (28-32) pg RDW (13.2-15.2) % Plt Count (140-440) K/mm3 [place] % (Auto) (0.0-7.3) % PT (12.2-14.9) Sec. INR (0.87-1.13) APTT (24.2-36.6) Sec. POC Sodium (138-146) mmol/L POC Potassium (3.5-4.9) Potassium (3.6-5.0) mmol/L Chloride (98-107) mmol/L Creatinine (0.8-1.5) mg/dL Glucose (75-100) mg/dL POC Glucose (70-105) Lactic Acid 3.70 H* (0.7-2.0) mmol/L Calcium (8.4-10.2) mg/dL Total Bilirubin (0.1-1.2) mg/dL Direct Bilirubin (0-0.2) mg/dL AST (5-40) units/L ALT (7-56) units/L Ammonia 69.0 H (25-60) umol/L Total Protein (6.3-8.2) g/dL Albumin (3.9-5) g/dL Crossmatch See Detail 07/31/17 08/01/17 08/01/17 Range/Units 17:09 04:01 04:01 RBC 2.26 L (3.65-5.03) M/mm3 Hgb 7.8 L (11.8-15.2) gm/dl POC Hgb 6.8 L (12-17) Hct 23.0 L (35.5-45.6) % POC Hct 20 L (38-51) MCV 102 H (84-94) fl MCH 35 H (28-32) pg RDW 20.4 H (13.2-15.2) % Plt Count 50 L (140-440) K/mm3 [place] % (Auto) 9.6 H (0.0-7.3) % PT (12.2-14.9) Sec. INR (0.87-1.13) APTT (24.2-36.6) Sec. POC Sodium 147 H (138-146) mmol/L POC Potassium 5.0 H (3.5-4.9) Potassium (3.6-5.0) mmol/L Chloride 109.6 H (98-107) mmol/L Creatinine 0.6 L (0.8-1.5) mg/dL Glucose 73 L (75-100) mg/dL POC Glucose 110 H (70-105) Lactic Acid (0.7-2.0) mmol/L Calcium 7.2 L (8.4-10.2) mg/dL Total Bilirubin (0.1-1.2) mg/dL Direct Bilirubin (0-0.2) mg/dL AST (5-40) units/L ALT (7-56) units/L Ammonia (25-60) umol/L Total Protein (6.3-8.2) g/dL Albumin (3.9-5) g/dL Crossmatch 08/01/17 Range/Units 04:01 RBC (3.65-5.03) M/mm3 Hgb (11.8-15.2) gm/dl POC Hgb (12-17) Hct (35.5-45.6) % POC Hct (38-51) MCV (84-94) fl MCH (28-32) pg RDW (13.2-15.2) % Plt Count (140-440) K/mm3 [place] % (Auto) (0.0-7.3) % PT (12.2-14.9) Sec. INR (0.87-1.13) APTT (24.2-36.6) Sec. POC Sodium (138-146) mmol/L POC Potassium (3.5-4.9) Potassium (3.6-5.0) mmol/L Chloride (98-107) mmol/L Creatinine (0.8-1.5) mg/dL Glucose (75-100) mg/dL POC Glucose (70-105) Lactic Acid (0.7-2.0) mmol/L Calcium (8.4-10.2) mg/dL Total Bilirubin 5.50 H (0.1-1.2) mg/dL Direct Bilirubin 3.4 H (0-0.2) mg/dL AST 217 H (5-40) units/L ALT 91 H (7-56) units/L Ammonia (25-60) umol/L Total Protein 5.8 L (6.3-8.2) g/dL Albumin 1.5 L (3.9-5) g/dL Crossmatch - Imaging and Cardiology Chest x-ray: image reviewed (clear, no evidence of acute lung disease. Hyperinflated lungs consistent with air trapping and possible obstructive lung disease) Assessment and Plan 56 y/o male with GI bleed 1. Colon today 2. Pending results of this, stable for transfer to floor. Will alert medicine. GI will scope patient in ICU around noon
[2017-08-01] MEDS ORDERED: DIPRIVAN 10 MG/ML IV ONE ×2 (12:45→12:46)
[2017-08-01] MEDS ORDERED: XYLOCAINE 1% 20 mL ONE (12:46)
--- NOTE | 2017-08-01 13:04 | Anesthesia Day of Surgery ---
Anesthesia Day of Surgery - Day of Surgery Patient Examined: Yes Patient H&P Reviewed: Yes Patient is NPO: Yes
--- NOTE | 2017-08-01 13:04 | Anesthesia Consultation ---
Anesthesia Consult and Med Hx Date of service: 08/01/17 - Airway Anesthetic Teeth Evaluation: Poor, Dentures ROM Head & Neck: Adequate Mental/Hyoid Distance: Adequate Mallampati Class: Class II Intubation Access Assessment: Probably Good - Pulmonary Exam CTA: Yes - Cardiac Exam Cardiac Exam: RRR - Pre-Operative Health Status ASA Pre-Surgery Classification: ASA3 Proposed Anesthetic Plan: MAC - Pre-Anesthesia Comment Pre-Anesthesia Comments: hgb 7.8/K 5.0 - Pulmonary Hx Asthma: Yes COPD: Yes - Gastrointestinal Hx Ulcer: Yes (h/o peptic ulcers) - Endocrine Hx End Stage Renal Disease: No Hx Cirrhosis: Yes Hx Liver Disease: Yes (cirrhosis) - Hematic Hx Anemia: Yes - Additional Comments Anesthesia Medical History Comments: upper GI blleed, HIV, noncomplient with treatment
--- NOTE | 2017-08-01 13:27 | Post Operative Note ---
Pre-op diagnosis: GI bleed, anemia Post-op diagnosis: other (DU x 2, hiatal hernia, gastritis/esophagitis, improved appearance) Findings: 1. DU x 2, (5-6mm), now white based without blood/clots 2. Mild gastritis 3. No gastric/esophageal varices 4. Small hiatal hernia 5. Grade B erosive esophagitis, GE junction Procedure: EGD Anesthesia: MAC Surgeon: MARIA ESTHER OSBORNE Estimated blood loss: none Pathology: none Specimen disposition: other (N/A) Condition: stable Disposition: floor (Recs: 1. Advance diet, and to PO medications. 2. Continue MVI therapy. 3. D/C octreotide. 4. F/U pathology from 07/31 (?H pylori). 5. OK to transition out of ICU.)
--- NOTE | 2017-08-01 13:42 | Operative Report ---
PROCEDURE PERFORMED: Esophagogastroduodenoscopy. PREOPERATIVE DIAGNOSES: Second look endoscopy for severe gastrointestinal bleeding from duodenal ulcers. POSTOPERATIVE DIAGNOSES: Improved appearance of ulcers, gastritis/esophagitis, hiatal hernia. ENDOSCOPIST: Familia Daniel MD INSTRUMENT: BumpTop video endoscope. MEDICATIONS: MAC anesthesia by Anesthesia Services. COMPLICATIONS: No apparent complications. ESTIMATED BLOOD LOSS: None. SPECIMENS: None. IMPLANTS: None. ASSISTANTS: None. CONDITION AT COMPLETION: Stable. TECHNIQUE: The patient was informed of the risks and benefits of the procedure. He signed the informed consent to proceed. He was placed in the left lateral decubitus position. The above sedative medications were given. His vital signs remained stable throughout the procedure. The instrument was advanced from the mouth to the second portion of the duodenum under direct visualization. At that point, the bowel was insufflated and the endoscope was slowly withdrawn. FINDINGS: 1. Two ulcers were seen in the duodenum, ranging in size from 5 mm to 6 mm, but with improved appearance from 07/31/2017. Previously they had pigment at the base, but are now white based with no evidence of visible vessel. a. In addition, much of the duodenal edema and inflammation from 07/31/2017 had improved. 2. Mild gastritis. 3. No evidence of gastric or esophageal varices. 4. Small hiatal hernia. 5. Grade B erosive esophagitis at the gastroesophageal junction. RECOMMENDATIONS: 1. Advance diet and to oral medications. 2. Continue multivitamin therapy. 3. Discontinue octreotide. 4. Follow up on pathology to rule out H. pylori from endoscopy yesterday. 5. Okay to transition out of the Intensive Care Unit. JOB# [id number] DREW/NTS
--- NOTE | 2017-08-01 15:26 | Post Anesthesia Evaluation ---
- Post Anesthesia Evaluation Patient Participated: Yes Airway Patent: Yes Stable Respiratory Function: Yes Nausea/Vomiting: No Temp > 96.8F: Yes Pain Manageable: Yes Adequeate Hydration: Yes Anesthesia Complications: No
[2017-08-02] MEDS: CARAFATE PO SCH ×4 (00:49→16:59)
[2017-08-02] MEDS: TESSALON PERLES PO PRN (00:49)
[2017-08-02] MEDS: MUCINEX ER PO SCH ×2 (10:27→22:21)
[2017-08-02] MEDS: THERAGRAN-M Tab PO SCH (10:27)
[2017-08-02] MEDS: BACTRIM DS PO SCH (10:27)
[2017-08-02] MEDS: PROTONIX PO SCH (10:28)
[2017-08-02] MEDS: SODIUM CHLORIDE FLUSH SYRINGE 10 ML IV SCH ×2 (10:29→22:21)
[2017-08-02] MEDS: FEOSOL PO SCH ×2 (12:54→22:21)
[2017-08-02 13:59] LABS: Basophils % (Auto) 0.5 % (0.0-1.8); Eosinophils # (Auto) 0.3 K/mm3 (0.0-0.4); Eosinophils % (Auto) 5.5 % (0.0-4.3); Hematocrit 20.9 % (35.5-45.6); Lymphocytes # (Auto) 1.8 K/mm3 (1.2-5.4); Mean Corpuscular HGB Conc 34 % (32-34); Mean Corpuscular Hemoglobin 35 pg (28-32); Mean Corpuscular Volume 103 fl (84-94); Monocytes # (Auto) 0.7 K/mm3 (0.0-0.8); Monocytes % (Auto) 11.8 % (0.0-7.3); Red Blood Count 2.03 M/mm3 (3.65-5.03); Red Cell Distribution Width 19.7 % (13.2-15.2)
[2017-08-02 14:09] LABS: Platelet Count 48 K/mm3 (140-440)
[2017-08-02 14:40] LABS: Alanine Aminotransferase 99 units/L (7-56); Albumin 1.5 g/dL (3.9-5); BUN/Creatinine Ratio 27; Blood Urea Nitrogen 16 mg/dL (9-20); Calcium 7.2 mg/dL (8.4-10.2); Hemolysis Index 3
--- NOTE | 2017-08-02 15:59 | Progress Note ---
Assessment and Plan Assessment and plan: --Acute blood loss anemia secondary to upper GI bleeding; Requiring blood transfusion, status post 2 PRBC transfusion Patient's hemoglobin dropped to 7, Transfuse one additional unit of PRBC today No external evidence of GI bleeding --Acute upper GI bleeding; Status post EGD, 2 large (5-7mm) pigment-based ulcers in duodenum without visible vessel seen, Moderate erosive gastritis, cold bx of antrum for H pylori Medium hiatal hernia, LA Grade C erosive esophagitis Possible colonoscopy today --HIV AIDS; Stable , patient will follow with health Department upon discharge , ID consultation as needed --Cirrhosis liver; LFTs trending down, consider GI evaluation if needed --Coagulopathy; secondary to cirrhosis liver, closely monitor, vitamin K as needed --Severe thrombocytopenia; secondary to cirrhosis of liver, transfuse platelets as needed --Severe protein calorie malnutrition; nutrition supplements and supportive care --DVT prophylaxis; SCDs, no pharmacologic anticoagulation in view of GI bleeding Anemia, coagulopathy and thrombocytopenia Possible discharge in 1-2 days if stable Plan of care reviewed with the patient and his nurse History Interval history: Patient seen and examined medical records reviewed Feels slightly better. No new episodes of GI bleeding However hemoglobin dropped to 7.8 - 7.0 Vital signs reviewed Hospitalist Physical - Constitutional Vitals: Temp Pulse Resp BP Pulse Ox 99.0 F 84 20 111/64 93 08/02/17 08:09 08/02/17 08:09 08/02/17 08:09 08/02/17 08:09 08/02/17 08:09 General appearance: Present: no acute distress, cachectic, disheveled - EENT Eyes: Present: PERRL, EOM intact - Neck Neck: Present: supple, normal ROM - Respiratory Respiratory effort: normal Respiratory: negative: rales, rhonchi, wheezing - Cardiovascular Rhythm: regular Heart Sounds: Present: S1 & S2 - Extremities Extremities: no ischemia, No edema - Abdominal General gastrointestinal: soft, non-tender, non-distended, normal bowel sounds - Integumentary Integumentary: Present: clear, warm - Psychiatric Psychiatric: appropriate mood/affect, cooperative - Neurologic Neurologic: CNII-XII intact, moves all extremities Results - Labs CBC & Chem 7: 08/02/17 13:19 08/02/17 13:19 Labs: Laboratory Last Values WBC 6.3 K/mm3 (4.5-11.0) 08/02/17 13:19 RBC 2.03 M/mm3 (3.65-5.03) L 08/02/17 13:19 Hgb 7.0 gm/dl (11.8-15.2) L 08/02/17 13:19 POC Hgb 6.8 (12-17) L 07/31/17 17:09 Hct 20.9 % (35.5-45.6) L 08/02/17 13:19 POC Hct 20 (38-51) L 07/31/17 17:09 MCV 103 fl (84-94) H 08/02/17 13:19 MCH 35 pg (28-32) H 08/02/17 13:19 MCHC 34 % (32-34) 08/02/17 13:19 RDW 19.7 % (13.2-15.2) H 08/02/17 13:19 Plt Count 48 K/mm3 (140-440) L 08/02/17 13:19 Lymph % (Auto) 29.0 % (13.4-35.0) 08/02/17 13:19 [place] % (Auto) 11.8 % (0.0-7.3) H 08/02/17 13:19 Eos % (Auto) 5.5 % (0.0-4.3) H 08/02/17 13:19 Baso % (Auto) 0.5 % (0.0-1.8) 08/02/17 13:19 Lymph # 1.8 K/mm3 (1.2-5.4) 08/02/17 13:19 Lawrence # 0.7 K/mm3 (0.0-0.8) 08/02/17 13:19 Eos # 0.3 K/mm3 (0.0-0.4) 08/02/17 13:19 Baso # 0.0 K/mm3 (0.0-0.1) 08/02/17 13:19 Seg Neutrophils % 53.2 % (40.0-70.0) 08/02/17 13:19 Seg Neutrophils # 3.3 K/mm3 (1.8-7.7) 08/02/17 13:19 PT 24.0 Sec. (12.2-14.9) H 08/02/17 13:19 INR 2.00 (0.87-1.13) H 08/02/17 13:19 APTT 42.2 Sec. (24.2-36.6) H 07/31/17 10:50 POC Sodium 147 mmol/L (138-146) H 07/31/17 17:09 POC Potassium 5.0 (3.5-4.9) H 07/31/17 17:09 POC Chloride 103 (98-109) 07/31/17 17:09 Sodium 135 mmol/L (137-145) L 08/02/17 13:19 Potassium 4.1 mmol/L (3.6-5.0) 08/02/17 13:19 Chloride 103.5 mmol/L (98-107) 08/02/17 13:19 Carbon Dioxide 31 mmol/L (22-30) H 08/02/17 13:19 Anion Gap 5 mmol/L 08/02/17 13:19 POC BUN 24 mg/dl (8-26) 07/31/17 17:09 BUN 16 mg/dL (9-20) 08/02/17 13:19 Creatinine 0.6 mg/dL (0.8-1.5) L 08/02/17 13:19 Estimated GFR > 60 ml/min 08/02/17 13:19 BUN/Creatinine Ratio 27 % 08/02/17 13:19 Glucose 101 mg/dL (75-100) H 08/02/17 13:19 POC Glucose 110 (70-105) H 07/31/17 17:09 Lactic Acid 3.70 mmol/L (0.7-2.0) H* 07/31/17 10:50 Calcium 7.2 mg/dL (8.4-10.2) L 08/02/17 13:19 Phosphorus 1.90 mg/dL (2.5-4.5) L 08/02/17 13:19 Magnesium 1.60 mg/dL (1.7-2.3) L 08/02/17 13:19 Total Bilirubin 5.30 mg/dL (0.1-1.2) H 08/02/17 13:19 Direct Bilirubin 3.4 mg/dL (0-0.2) H 08/01/17 04:01 Indirect Bilirubin 2.1 mg/dL 08/01/17 04:01 AST 232 units/L (5-40) H 08/02/17 13:19 ALT 99 units/L (7-56) H 08/02/17 13:19 Alkaline Phosphatase 109 units/L (35-129) 08/02/17 13:19 Ammonia 69.0 umol/L (25-60) H 07/31/17 10:50 Total Protein 6.3 g/dL (6.3-8.2) 08/02/17 13:19 Albumin 1.5 g/dL (3.9-5) L 08/02/17 13:19 Albumin/Globulin Ratio 0.3 % 08/02/17 13:19 Lipase 28 units/L (13-60) 07/31/17 10:50 Urine Opiates Screen Presumptive negative 07/31/17 16:54 Urine Methadone Screen Presumptive negative 07/31/17 16:54 Ur Barbiturates Screen Presumptive negative 07/31/17 16:54 Ur Phencyclidine Scrn Presumptive negative 07/31/17 16:54 Ur Amphetamines Screen Presumptive negative 07/31/17 16:54 U Benzodiazepines Scrn Presumptive negative 07/31/17 16:54 Urine Cocaine Screen Presumptive negative 07/31/17 16:54 U Marijuana (THC) Screen Presumptive negative 07/31/17 16:54 Drugs of Abuse Note Disclamer 07/31/17 16:54 Plasma/Serum Alcohol < 0.01 % (0-0.07) 07/31/17 12:56 Hep Bs Antigen Reactive (Negative) 08/01/17 04:01 Hepatitis C Antibody Non-reactive (NonReactive) 08/01/17 04:01 Blood Type O POSITIVE 07/31/17 10:50 Antibody Screen Negative 07/31/17 10:50 Crossmatch See Detail 07/31/17 10:50
[2017-08-02] MEDS ORDERED: NACL 0.9% 500 ML 500 ML IV SCH (16:06)
[2017-08-02] MEDS: TYLENOL #3 PO PRN (17:00)
--- NOTE | 2017-08-02 18:41 | Gastroenterology Progress Note ---
Assessment and Plan - Patient Problems (1) Cirrhosis of liver due to hepatitis B Current Visit: Yes Status: Acute Plan to address problem: - Would not treat at present (despite (+) sAg) given confounding HIV, and need for compliance with f/u and med management. (2) Duodenal ulcer with hemorrhage Current Visit: Yes Status: Acute Plan to address problem: - EGD showed large ulcers but no active bleeding, and no varices. - Will continue protonix and MVI therapy. - Given underlying cirrhosis, and poor overall health, baseline hct may not be normal for age. - If anemia persists, will consider lower endoscopy/bleeding scan. Subjective Date of service: 08/02/17 Principal diagnosis: DU Interval history: The patient has a poor appetite, and says his stools are still dark. No N/V, and says he has no stomach pain. Objective - Constitutional Vitals: Temp Pulse Resp BP Pulse Ox 99.4 F 85 18 104/56 93 08/02/17 15:54 08/02/17 15:54 08/02/17 15:54 08/02/17 15:54 08/02/17 15:54 General appearance: no acute distress - EENT Eyes: PERRL, EOM intact - Respiratory Respiratory effort: normal Respiratory: bilateral: CTA - Cardiovascular Rhythm: regular Heart Sounds: Present: S1 & S2 - Gastrointestinal General gastrointestinal: Present: soft, non-tender, non-distended - Labs CBC & Chem 7: 08/02/17 13:19 08/02/17 13:19 Labs: Laboratory Results - last 24 hr 07/31/17 08/02/17 08/02/17 10:50 13:19 13:19 WBC 6.3 RBC 2.03 L Hgb 7.0 L Hct 20.9 L MCV 103 H MCH 35 H MCHC 34 RDW 19.7 H Plt Count 48 L Lymph % (Auto) 29.0 [place]da % (Auto) 11.8 H Eos % (Auto) 5.5 H Baso % (Auto) 0.5 Lymph # 1.8 Ida # 0.7 Eos # 0.3 Baso # 0.0 Seg Neutrophils % 53.2 Seg Neutrophils # 3.3 PT INR Sodium 135 L Potassium 4.1 Chloride 103.5 Carbon Dioxide 31 H Anion Gap 5 BUN 16 Creatinine 0.6 L Estimated GFR > 60 BUN/Creatinine Ratio 27 Glucose 101 H Calcium 7.2 L Phosphorus 1.90 L Magnesium 1.60 L Total Bilirubin 5.30 H AST 232 H ALT 99 H Alkaline Phosphatase 109 Total Protein 6.3 Albumin 1.5 L Albumin/Globulin Ratio 0.3 Blood Type O POSITIVE Antibody Screen Negative Crossmatch See Detail 08/02/17 13:19 WBC RBC Hgb Hct MCV MCH MCHC RDW Plt Count Lymph % (Auto) [place]da % (Auto) Eos % (Auto) Baso % (Auto) Lymph # Ida # Eos # Baso # Seg Neutrophils % Seg Neutrophils # PT 24.0 H INR 2.00 H Sodium Potassium Chloride Carbon Dioxide Anion Gap BUN Creatinine Estimated GFR BUN/Creatinine Ratio Glucose Calcium Phosphorus Magnesium Total Bilirubin AST ALT Alkaline Phosphatase Total Protein Albumin Albumin/Globulin Ratio Blood Type Antibody Screen Crossmatch
[2017-08-02] MEDS: BENADRYL IV PRN (23:20)
[2017-08-03] MEDS: CARAFATE PO SCH ×4 (00:12→17:07)
[2017-08-03 06:01] LABS: Basophils % (Auto) 0.7 % (0.0-1.8); Eosinophils # (Auto) 0.3 K/mm3 (0.0-0.4); Eosinophils % (Auto) 6.4 % (0.0-4.3); Hematocrit 21.6 % (35.5-45.6); Hemoglobin 7.1 gm/dl (11.8-15.2); Lymphocytes # (Auto) 1.6 K/mm3 (1.2-5.4); Mean Corpuscular HGB Conc 33 % (32-34); Mean Corpuscular Hemoglobin 34 pg (28-32); Mean Corpuscular Volume 102 fl (84-94); Monocytes # (Auto) 0.5 K/mm3 (0.0-0.8); Monocytes % (Auto) 10.6 % (0.0-7.3); Red Blood Count 2.12 M/mm3 (3.65-5.03); Red Cell Distribution Width 18.6 % (13.2-15.2)
[2017-08-03 06:11] LABS: INR 2.39 (0.87-1.13)
[2017-08-03 06:12] LABS: Platelet Count 41 K/mm3 (140-440)
[2017-08-03 06:45] LABS: Alanine Aminotransferase 86 units/L (7-56); Albumin 1.3 g/dL (3.9-5); BUN/Creatinine Ratio 27; Blood Urea Nitrogen 16 mg/dL (9-20); Calcium 7.2 mg/dL (8.4-10.2); Hemolysis Index 1
[2017-08-03] MEDS: FEOSOL PO SCH ×2 (09:50→21:35)
[2017-08-03] MEDS: MUCINEX ER PO SCH ×2 (09:50→21:35)
[2017-08-03] MEDS: PROTONIX PO SCH (09:50)
[2017-08-03] MEDS: THERAGRAN-M Tab PO SCH (09:50)
[2017-08-03] MEDS: BACTRIM DS PO SCH (09:50)
[2017-08-03] MEDS: SODIUM CHLORIDE FLUSH SYRINGE 10 ML IV SCH ×2 (10:00→21:35)
--- NOTE | 2017-08-03 11:16 | Progress Note ---
Assessment and Plan Assessment and plan: --Metabolic encephalopathy ; secondary to underlying disease process Check ammonia, possible hepatic encephalopathy, GI following --Acute blood loss anemia secondary to upper GI bleeding; Requiring blood transfusion, status post 3 PRBC transfusion Patient's hemoglobin improved to 8.1, Transfuse as needed No new episodes of GI bleeding --Acute upper GI bleeding; Status post EGD x2, 2 large (5-7mm) pigment-based ulcers in duodenum without visible vessel seen, Moderate erosive gastritis, cold bx of antrum for H pylori Medium hiatal hernia, [place] Grade C erosive esophagitis Possible colonoscopy today --HIV AIDS; patient will follow with health Department upon discharge , ID consultation as needed --Cirrhosis liver; LFTs trending down, consider GI evaluation if needed --Coagulopathy; secondary to cirrhosis liver, closely monitor, vitamin K as needed --Severe thrombocytopenia; secondary to cirrhosis of liver, transfuse platelets as needed --Severe protein calorie malnutrition; nutrition supplements and supportive care --DVT prophylaxis; SCDs, no pharmacologic anticoagulation in view of GI bleeding Anemia, coagulopathy and thrombocytopenia Possible discharge in 1-2 days if stable Plan of care reviewed with the patient and his nurse History Interval history: Patient seen and examined medical records reviewed No new events reported the nursing staff However patient is slightly lethargic, responding to simple questions appropriately Denies new episodes of GI bleeding Vital signs reviewed Hospitalist Physical - Constitutional Vitals: Temp Pulse Resp BP Pulse Ox 98.1 F 73 20 112/60 93 08/03/17 07:05 08/03/17 07:05 08/03/17 07:05 08/03/17 07:05 08/03/17 07:05 General appearance: Present: no acute distress, cachectic, disheveled - EENT Eyes: Present: PERRL, EOM intact - Neck Neck: Present: supple, normal ROM - Respiratory Respiratory effort: normal Respiratory: negative: rales, rhonchi, wheezing - Cardiovascular Rhythm: regular Heart Sounds: Present: S1 & S2 - Extremities Extremities: no ischemia, No edema - Abdominal General gastrointestinal: soft, non-tender, non-distended - Integumentary Integumentary: Present: clear, warm - Psychiatric Psychiatric: cooperative - Neurologic Neurologic: moves all extremities Results - Labs CBC & Chem 7: 08/03/17 12:53 08/03/17 05:12 Labs: Laboratory Last Values WBC 4.7 K/mm3 (4.5-11.0) 08/03/17 05:12 RBC 2.12 M/mm3 (3.65-5.03) L 08/03/17 05:12 Hgb 7.1 gm/dl (11.8-15.2) L 08/03/17 05:12 POC Hgb 6.8 (12-17) L 07/31/17 17:09 Hct 21.6 % (35.5-45.6) L 08/03/17 05:12 POC Hct 20 (38-51) L 07/31/17 17:09 MCV 102 fl (84-94) H 08/03/17 05:12 MCH 34 pg (28-32) H 08/03/17 05:12 MCHC 33 % (32-34) 08/03/17 05:12 RDW 18.6 % (13.2-15.2) H 08/03/17 05:12 Plt Count 41 K/mm3 (140-440) L 08/03/17 05:12 Lymph % (Auto) 35.0 % (13.4-35.0) 08/03/17 05:12 [place]hing % (Auto) 10.6 % (0.0-7.3) H 08/03/17 05:12 Eos % (Auto) 6.4 % (0.0-4.3) H 08/03/17 05:12 Baso % (Auto) 0.7 % (0.0-1.8) 08/03/17 05:12 Lymph # 1.6 K/mm3 (1.2-5.4) 08/03/17 05:12 [place]hing # 0.5 K/mm3 (0.0-0.8) 08/03/17 05:12 Eos # 0.3 K/mm3 (0.0-0.4) 08/03/17 05:12 Baso # 0.0 K/mm3 (0.0-0.1) 08/03/17 05:12 Seg Neutrophils % 47.3 % (40.0-70.0) 08/03/17 05:12 Seg Neutrophils # 2.2 K/mm3 (1.8-7.7) 08/03/17 05:12 PT 27.7 Sec. (12.2-14.9) H 08/03/17 05:12 INR 2.39 (0.87-1.13) H 08/03/17 05:12 APTT 42.2 Sec. (24.2-36.6) H 07/31/17 10:50 POC Sodium 147 mmol/L (138-146) H 07/31/17 17:09 POC Potassium 5.0 (3.5-4.9) H 07/31/17 17:09 POC Chloride 103 (98-109) 07/31/17 17:09 Sodium 138 mmol/L (137-145) 08/03/17 05:12 Potassium 4.0 mmol/L (3.6-5.0) 08/03/17 05:12 Chloride 103.2 mmol/L (98-107) 08/03/17 05:12 Carbon Dioxide 31 mmol/L (22-30) H 08/03/17 05:12 Anion Gap 8 mmol/L 08/03/17 05:12 POC BUN 24 mg/dl (8-26) 07/31/17 17:09 BUN 16 mg/dL (9-20) 08/03/17 05:12 Creatinine 0.6 mg/dL (0.8-1.5) L 08/03/17 05:12 Estimated GFR > 60 ml/min 08/03/17 05:12 BUN/Creatinine Ratio 27 % 08/03/17 05:12 Glucose 93 mg/dL (75-100) 08/03/17 05:12 POC Glucose 110 (70-105) H 07/31/17 17:09 Lactic Acid 3.70 mmol/L (0.7-2.0) H* 07/31/17 10:50 Calcium 7.2 mg/dL (8.4-10.2) L 08/03/17 05:12 Phosphorus 1.90 mg/dL (2.5-4.5) L 08/02/17 13:19 Magnesium 1.60 mg/dL (1.7-2.3) L 08/02/17 13:19 Total Bilirubin 4.80 mg/dL (0.1-1.2) H 08/03/17 05:12 Direct Bilirubin 3.4 mg/dL (0-0.2) H 08/01/17 04:01 Indirect Bilirubin 2.1 mg/dL 08/01/17 04:01 AST 205 units/L (5-40) H 08/03/17 05:12 ALT 86 units/L (7-56) H 08/03/17 05:12 Alkaline Phosphatase 91 units/L (35-129) 08/03/17 05:12 Ammonia 69.0 umol/L (25-60) H 07/31/17 10:50 Total Protein 5.7 g/dL (6.3-8.2) L 08/03/17 05:12 Albumin 1.3 g/dL (3.9-5) L 08/03/17 05:12 Albumin/Globulin Ratio 0.3 % 08/03/17 05:12 Lipase 28 units/L (13-60) 07/31/17 10:50 Urine Opiates Screen Presumptive negative 07/31/17 16:54 Urine Methadone Screen Presumptive negative 07/31/17 16:54 Ur Barbiturates Screen Presumptive negative 07/31/17 16:54 Ur Phencyclidine Scrn Presumptive negative 07/31/17 16:54 Ur Amphetamines Screen Presumptive negative 07/31/17 16:54 U Benzodiazepines Scrn Presumptive negative 07/31/17 16:54 Urine Cocaine Screen Presumptive negative 07/31/17 16:54 U Marijuana (THC) Screen Presumptive negative 07/31/17 16:54 Drugs of Abuse Note Disclamer 07/31/17 16:54 Plasma/Serum Alcohol < 0.01 % (0-0.07) 07/31/17 12:56 Hep Bs Antigen Reactive (Negative) 08/01/17 04:01 Hep B Core Total Ab Reactive (Nonreactive) H 08/01/17 04:01 Hepatitis C Antibody Non-reactive (NonReactive) 08/01/17 04:01 Blood Type O POSITIVE 07/31/17 10:50 Antibody Screen Negative 07/31/17 10:50 Crossmatch See Detail 07/31/17 10:50
--- NOTE | 2017-08-03 11:50 | Gastroenterology Progress Note ---
Assessment and Plan (1) Cirrhosis of liver due to hepatitis B Current Visit: Yes Status: Acute Plan to address problem: - Would not treat at present (despite (+) sAg) given confounding HIV, and need for compliance with f/u and med management. -clinically pt with signs of encephalopathy upon exam this am -stat ammonia level -start on lactulose BID -continue to trend labs and supportive care (2) Duodenal ulcer with hemorrhage Current Visit: Yes Status: Acute Plan to address problem: -EGD showed large ulcers but no active bleeding, and no varices. -no active signs of bleeding overnight or this am -continue to monitor H/H and transfuse as needed -continue protonix and MVI therapy. -Given underlying cirrhosis, and poor overall health, baseline hct may not be normal for age. -If anemia persists, will consider lower endoscopy/bleeding scan. Subjective Date of service: 08/03/17 Principal diagnosis: DU Interval history: Patient resting in bed w/o acute distress. Noted to be confused. Oriented to person and place but not year. No active signs of bleeding overnight or this am per nursing. Admits to mild abd pain but no N/V. Objective - Constitutional Vitals: Temp Pulse Resp BP Pulse Ox 98.1 F 73 20 112/60 93 08/03/17 07:05 08/03/17 07:05 08/03/17 07:05 08/03/17 07:05 08/03/17 07:05 General appearance: no acute distress - Respiratory Respiratory: bilateral: CTA - Cardiovascular Rhythm: regular Heart Sounds: Present: S1 & S2 - Gastrointestinal General gastrointestinal: Present: soft, tender (mild TTP), non-distended, normal bowel sounds - Neurologic Neurological: oriented to person, oriented to place - Labs CBC & Chem 7: 08/03/17 05:12 08/03/17 05:12 Labs: Laboratory Results - last 24 hr 07/31/17 08/01/17 08/02/17 10:50 04:01 13:19 WBC 6.3 RBC 2.03 L Hgb 7.0 L Hct 20.9 L MCV 103 H MCH 35 H MCHC 34 RDW 19.7 H Plt Count 48 L Lymph % (Auto) 29.0 [place] % (Auto) 11.8 H Eos % (Auto) 5.5 H Baso % (Auto) 0.5 Lymph # 1.8 [place] # 0.7 Eos # 0.3 Baso # 0.0 Seg Neutrophils % 53.2 Seg Neutrophils # 3.3 PT INR Sodium Potassium Chloride Carbon Dioxide Anion Gap BUN Creatinine Estimated GFR BUN/Creatinine Ratio Glucose Calcium Phosphorus Magnesium Total Bilirubin AST ALT Alkaline Phosphatase Total Protein Albumin Albumin/Globulin Ratio Hep B Core Total Ab Reactive H Blood Type O POSITIVE Antibody Screen Negative Crossmatch See Detail 08/02/17 08/02/17 08/03/17 13:19 13:19 05:12 WBC 4.7 RBC 2.12 L Hgb 7.1 L Hct 21.6 L MCV 102 H MCH 34 H MCHC 33 RDW 18.6 H Plt Count 41 L Lymph % (Auto) 35.0 [place] % (Auto) 10.6 H Eos % (Auto) 6.4 H Baso % (Auto) 0.7 Lymph # 1.6 [place] # 0.5 Eos # 0.3 Baso # 0.0 Seg Neutrophils % 47.3 Seg Neutrophils # 2.2 PT 24.0 H INR 2.00 H Sodium 135 L Potassium 4.1 Chloride 103.5 Carbon Dioxide 31 H Anion Gap 5 BUN 16 Creatinine 0.6 L Estimated GFR > 60 BUN/Creatinine Ratio 27 Glucose 101 H Calcium 7.2 L Phosphorus 1.90 L Magnesium 1.60 L Total Bilirubin 5.30 H AST 232 H ALT 99 H Alkaline Phosphatase 109 Total Protein 6.3 Albumin 1.5 L Albumin/Globulin Ratio 0.3 Hep B Core Total Ab Blood Type Antibody Screen Crossmatch 08/03/17 08/03/17 05:12 05:12 WBC RBC Hgb Hct MCV MCH MCHC RDW Plt Count Lymph % (Auto) [place] % (Auto) Eos % (Auto) Baso % (Auto) Lymph # [place] # Eos # Baso # Seg Neutrophils % Seg Neutrophils # PT 27.7 H INR 2.39 H Sodium 138 Potassium 4.0 Chloride 103.2 Carbon Dioxide 31 H Anion Gap 8 BUN 16 Creatinine 0.6 L Estimated GFR > 60 BUN/Creatinine Ratio 27 Glucose 93 Calcium 7.2 L Phosphorus Magnesium Total Bilirubin 4.80 H AST 205 H ALT 86 H Alkaline Phosphatase 91 Total Protein 5.7 L Albumin 1.3 L Albumin/Globulin Ratio 0.3 Hep B Core Total Ab Blood Type Antibody Screen Crossmatch
[2017-08-03] MEDS: CEPHULAC PO SCH ×4 (12:00→20:42)
[2017-08-03 13:01] LABS: Hematocrit 23.4 % (35.5-45.6); Hemoglobin 8.1 gm/dl (11.8-15.2)
[2017-08-03] MEDS ORDERED: TYLENOL PO PRN (13:17)
[2017-08-03] MEDS: TYLENOL #3 PO PRN (13:30)
[2017-08-03] MEDS: MAG-OX PO SCH (20:42)
[2017-08-04] MEDS: CARAFATE PO SCH ×4 (00:19→17:39)
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
[2017-08-04] MEDS: CEPHULAC PO SCH ×4 (10:38→17:40)
[2017-08-04 10:39] LABS: Hematocrit 25.8 % (35.5-45.6); Hemoglobin 8.5 gm/dl (11.8-15.2); Mean Corpuscular HGB Conc 33 % (32-34); Mean Corpuscular Hemoglobin 35 pg (28-32); Mean Corpuscular Volume 106 fl (84-94); Red Blood Count 2.44 M/mm3 (3.65-5.03); Red Cell Distribution Width 19.3 % (13.2-15.2)
[2017-08-04] MEDS: MUCINEX ER PO SCH ×3 (10:39→22:00)
[2017-08-04] MEDS: FEOSOL PO SCH ×3 (10:39→22:00)
[2017-08-04] MEDS: MAG-OX PO SCH ×2 (10:39→11:20)
[2017-08-04] MEDS: BACTRIM DS PO SCH (10:39)
[2017-08-04] MEDS: THERAGRAN-M Tab PO SCH ×2 (10:39→11:20)
[2017-08-04] MEDS: PROTONIX PO SCH ×2 (10:40→11:20)
[2017-08-04 10:46] LABS: Platelet Count 65 K/mm3 (140-440)
[2017-08-04 10:50] LABS: Alanine Aminotransferase 108 units/L (7-56); Albumin 1.5 g/dL (3.9-5); BUN/Creatinine Ratio 23; Blood Urea Nitrogen 16 mg/dL (9-20); Calcium 7.7 mg/dL (8.4-10.2); Hemolysis Index 1
[2017-08-04] MEDS: SODIUM CHLORIDE FLUSH SYRINGE 10 ML IV SCH ×2 (10:59→23:03)
[2017-08-04 11:01] LABS: INR 2.11 (0.87-1.13)
--- NOTE | 2017-08-04 11:23 | Gastroenterology Progress Note ---
Assessment and Plan GI: UGI bleed s/p EGD x 2 w/ duodenal ulcer - pt h/h stable w/o further signs bleeding - continue current management 2. Liver: HIV + w/ cirrhosis now signs encephalopathy - agree w/ ct scan as ordered - noted increase ammonia level, will increase Lactulose to 300 cc po tid - follow labs and mental status - will follow closely Subjective Date of service: 08/04/17 Principal diagnosis: DU Interval history: - pt reportedly combative w/ other issues overnight. No other specific issues Objective - Exam Narrative Exam: restrained, lethargic - Constitutional Vitals: Temp Pulse Resp BP Pulse Ox 97.7 F 77 20 145/76 97 08/03/17 23:53 08/03/17 23:53 08/03/17 23:53 08/03/17 23:53 08/03/17 23:53 General appearance: no acute distress - EENT Eyes: PERRL - Respiratory Respiratory: bilateral: CTA - Gastrointestinal General gastrointestinal: Present: soft, non-tender, non-distended - Labs CBC & Chem 7: 08/04/17 10:16 08/04/17 10:16 Labs: Laboratory Results - last 24 hr 08/03/17 08/03/17 08/03/17 12:53 12:53 16:24 WBC RBC Hgb 8.1 L Hct 23.4 L MCV MCH MCHC RDW Plt Count PT INR Sodium Potassium Chloride Carbon Dioxide Anion Gap BUN Creatinine Estimated GFR BUN/Creatinine Ratio Glucose Calcium Phosphorus Magnesium Total Bilirubin AST ALT Alkaline Phosphatase Ammonia 156.0 H 173.0 H Total Protein Albumin Albumin/Globulin Ratio 08/03/17 08/03/17 08/04/17 16:31 16:32 10:16 WBC 6.8 RBC 2.44 L Hgb 8.5 L Hct 25.8 L MCV 106 H MCH 35 H MCHC 33 RDW 19.3 H Plt Count 65 L PT INR Sodium Potassium Chloride Carbon Dioxide Anion Gap BUN Creatinine Estimated GFR BUN/Creatinine Ratio Glucose Calcium Phosphorus 2.40 L D Magnesium 1.60 L Total Bilirubin AST ALT Alkaline Phosphatase Ammonia Total Protein Albumin Albumin/Globulin Ratio 08/04/17 08/04/17 08/04/17 10:16 10:16 10:16 WBC RBC Hgb Hct MCV MCH MCHC RDW Plt Count PT 25.0 H INR 2.11 H Sodium 137 Potassium 4.5 Chloride 99.8 Carbon Dioxide 26 Anion Gap 16 BUN 16 Creatinine 0.7 L Estimated GFR > 60 BUN/Creatinine Ratio 23 Glucose 102 H Calcium 7.7 L Phosphorus Magnesium Total Bilirubin 5.80 H AST 246 H ALT 108 H Alkaline Phosphatase 105 Ammonia 143.0 H Total Protein 7.0 D Albumin 1.5 L Albumin/Globulin Ratio 0.3
[2017-08-04 11:37] LABS: Band Neutrophils # (Manual) 0.1 K/mm3; Basophils % (Manual) 0 % (0.0-1.8); Eosinophils % (Manual) 0 % (0.0-4.3); Total Cells Counted 100
[2017-08-04] MEDS: D5/0.45NS 1,000 ML IV SCH (11:41)
[2017-08-04 11:45] LABS: Anisocytosis 1+; Hypochromasia 1+; Macrocytosis 1+; Platelet Estimate Consistent w Auto
[2017-08-04] MEDS: ATIVAN IV PRN (23:00)
[2017-08-05] MEDS: CEPHULAC PO SCH ×3 (00:36→11:33)
[2017-08-05] MEDS: CARAFATE PO SCH ×4 (00:36→17:24)
[2017-08-05] MEDS: D5/0.45NS 1,000 ML IV SCH ×2 (06:29→15:22)
[2017-08-05 07:03] LABS: Basophils % (Auto) 0.6 % (0.0-1.8); Eosinophils # (Auto) 0.2 K/mm3 (0.0-0.4); Eosinophils % (Auto) 3.3 % (0.0-4.3); Hemoglobin 8.4 gm/dl (11.8-15.2); Lymphocytes # (Auto) 1.2 K/mm3 (1.2-5.4); Lymphocytes % (Auto) 26.7 % (13.4-35.0); Mean Corpuscular HGB Conc 34 % (32-34); Mean Corpuscular Hemoglobin 35 pg (28-32); Mean Corpuscular Volume 105 fl (84-94); Monocytes # (Auto) 0.6 K/mm3 (0.0-0.8); Monocytes % (Auto) 13.2 % (0.0-7.3); Red Blood Count 2.39 M/mm3 (3.65-5.03); Red Cell Distribution Width 19.5 % (13.2-15.2)
[2017-08-05 07:08] LABS: Platelet Count 56 K/mm3 (140-440)
[2017-08-05 07:20] LABS: Alanine Aminotransferase 101 units/L (7-56); Albumin 1.4 g/dL (3.9-5); BUN/Creatinine Ratio 25; Bilirubin,Direct 3.3 mg/dL (0-0.2); Blood Urea Nitrogen 15 mg/dL (9-20); Calcium 7.4 mg/dL (8.4-10.2); Hemolysis Index 2
[2017-08-05] MEDS: THERAGRAN-M Tab PO SCH (10:00)
[2017-08-05] MEDS: BACTRIM DS PO SCH (10:00)
[2017-08-05] MEDS: SODIUM CHLORIDE FLUSH SYRINGE 10 ML IV SCH ×2 (10:00→22:00)
[2017-08-05] MEDS: FEOSOL PO SCH ×2 (10:00→22:00)
[2017-08-05] MEDS: MUCINEX ER PO SCH ×2 (10:00→22:00)
[2017-08-05] MEDS: MAG-OX PO SCH (10:00)
[2017-08-05] MEDS: PROTONIX PO SCH (10:00)
--- NOTE | 2017-08-05 11:02 | Progress Note ---
Assessment and Plan Assessment and plan: --Severe Metabolic encephalopathy ; secondary to underlying hepatic encephalopathy Advanced AIDS,Neuro checks, supportive care, unable to get CT head due to severe agitation --Hepatic encephalopathy /very high ammonia levels with altered level of consciousness Agitation and aggression , continue lactulose , restrained for safety , GI following --Cirrhosis liver; LFTs trending down, GI following --Coagulopathy; secondary to cirrhosis liver, closely monitor, vitamin K as needed --Severe thrombocytopenia; secondary to cirrhosis of liver, transfuse platelets as needed --Severe protein calorie malnutrition; nutrition supplements and supportive care --Acute blood loss anemia secondary to upper GI bleeding; Requiring blood transfusion, status post 3 PRBC transfusion Patient's hemoglobin improved to 8.4, Transfuse as needed No new episodes of GI bleeding --Acute upper GI bleeding; Status post EGD x2, 2 large (5-7mm) ulcers in duodenum without visible vessel seen, Moderate erosive gastritis, cold bx of antrum for H pylori Medium hiatal hernia, [place] Grade C erosive esophagitis, no new episodes of bleeding --HIV AIDS; ID evaluation tomorrow patient will follow with health Department upon discharge , --DVT prophylaxis; SCDs, no pharmacologic anticoagulation in view of GI bleeding Anemia, coagulopathy and thrombocytopenia We will try Dobb[place] placement and tube feedings Patient may not cooperate secondary to encephalopathy If unable to place top of consider TPN History Interval history: Patient seen and examined medical records reviewed Patient is confused, noncommunicative, agitated and aggressive at times Restraint for safety No new overnight events reported by the nursing staff Vital signs reviewed Hospitalist Physical - Constitutional Vitals: Temp Pulse Resp BP Pulse Ox 98.3 F 93 H 20 138/82 92 08/05/17 07:28 08/05/17 07:28 08/05/17 07:28 08/05/17 07:28 08/05/17 07:28 General appearance: Present: no acute distress, cachectic, disheveled, other ( aggressive and agitated) - EENT Eyes: Present: PERRL, EOM intact - Neck Neck: Present: supple, normal ROM - Respiratory Respiratory effort: normal Respiratory: bilateral: diminished, negative: rales, rhonchi, wheezing - Cardiovascular Rhythm: regular Heart Sounds: Present: S1 & S2 - Extremities Extremities: no ischemia, No edema - Abdominal General gastrointestinal: soft, non-tender, non-distended - Integumentary Integumentary: Present: clear, warm - Psychiatric Psychiatric: other (noncommunicative) - Neurologic Neurologic: other (noncommunicative) Results - Labs CBC & Chem 7: 08/05/17 06:37 08/05/17 06:37 Labs: Laboratory Last Values WBC 4.6 K/mm3 (4.5-11.0) 08/05/17 06:37 RBC 2.39 M/mm3 (3.65-5.03) L 08/05/17 06:37 Hgb 8.4 gm/dl (11.8-15.2) L 08/05/17 06:37 POC Hgb 6.8 (12-17) L 07/31/17 17:09 Hct 25.0 % (35.5-45.6) L 08/05/17 06:37 POC Hct 20 (38-51) L 07/31/17 17:09 MCV 105 fl (84-94) H 08/05/17 06:37 MCH 35 pg (28-32) H 08/05/17 06:37 MCHC 34 % (32-34) 08/05/17 06:37 RDW 19.5 % (13.2-15.2) H 08/05/17 06:37 Plt Count 56 K/mm3 (140-440) L 08/05/17 06:37 Lymph % (Auto) 26.7 % (13.4-35.0) 08/05/17 06:37 [place] % (Auto) 13.2 % (0.0-7.3) H 08/05/17 06:37 Eos % (Auto) 3.3 % (0.0-4.3) 08/05/17 06:37 Baso % (Auto) 0.6 % (0.0-1.8) 08/05/17 06:37 Lymph # 1.2 K/mm3 (1.2-5.4) 08/05/17 06:37 [place] # 0.6 K/mm3 (0.0-0.8) 08/05/17 06:37 Eos # 0.2 K/mm3 (0.0-0.4) 08/05/17 06:37 Baso # 0.0 K/mm3 (0.0-0.1) 08/05/17 06:37 Add Manual Diff Complete 08/04/17 10:16 Total Counted 100 08/04/17 10:16 Seg Neutrophils % 56.2 % (40.0-70.0) 08/05/17 06:37 Seg Neuts % (Manual) 92.0 % (40.0-70.0) H 08/04/17 10:16 Band Neutrophils % 1.0 % 08/04/17 10:16 Lymphocytes % (Manual) 4.0 % (13.4-35.0) L 08/04/17 10:16 Reactive Lymphs % (Man) 0 % 08/04/17 10:16 Monocytes % (Manual) 3.0 % (0.0-7.3) 08/04/17 10:16 Eosinophils % (Manual) 0 % (0.0-4.3) 08/04/17 10:16 Basophils % (Manual) 0 % (0.0-1.8) 08/04/17 10:16 Metamyelocytes % 0 % 08/04/17 10:16 Myelocytes % 0 % 08/04/17 10:16 Promyelocytes % 0 % 08/04/17 10:16 Blast Cells % 0 % 08/04/17 10:16 Nucleated RBC % 7.0 % (0.0-0.9) H 08/04/17 10:16 Seg Neutrophils # 2.6 K/mm3 (1.8-7.7) 08/05/17 06:37 Seg Neutrophils # Man 6.3 K/mm3 (1.8-7.7) 08/04/17 10:16 Band Neutrophils # 0.1 K/mm3 08/04/17 10:16 Lymphocytes # (Manual) 0.3 K/mm3 (1.2-5.4) L 08/04/17 10:16 Abs React Lymphs (Man) 0.0 K/mm3 08/04/17 10:16 Monocytes # (Manual) 0.2 K/mm3 (0.0-0.8) 08/04/17 10:16 Eosinophils # (Manual) 0.0 K/mm3 (0.0-0.4) 08/04/17 10:16 Basophils # (Manual) 0.0 K/mm3 (0.0-0.1) 08/04/17 10:16 Metamyelocytes # 0.0 K/mm3 08/04/17 10:16 Myelocytes # 0.0 K/mm3 08/04/17 10:16 Promyelocytes # 0.0 K/mm3 08/04/17 10:16 Blast Cells # 0.0 K/mm3 08/04/17 10:16 WBC Morphology Not Reportable 08/04/17 10:16 Hypersegmented Neuts Not Reportable 08/04/17 10:16 Hyposegmented Neuts Not Reportable 08/04/17 10:16 Hypogranular Neuts Not Reportable 08/04/17 10:16 Smudge Cells Not Reportable 08/04/17 10:16 Toxic Granulation Not Reportable 08/04/17 10:16 Toxic Vacuolation Not Reportable 08/04/17 10:16 Dohle Bodies Not Reportable 08/04/17 10:16 Pelger-Huet Anomaly Not Reportable 08/04/17 10:16 [place] Rods Not Reportable 08/04/17 10:16 Platelet Estimate Consistent w auto 08/04/17 10:16 Clumped Platelets Not Reportable 08/04/17 10:16 Plt Clumps, EDTA Not Reportable 08/04/17 10:16 Large Platelets Not Reportable 08/04/17 10:16 Giant Platelets Not Reportable 08/04/17 10:16 Platelet Satelliting Not Reportable 08/04/17 10:16 Plt Morphology Comment Not Reportable 08/04/17 10:16 RBC Morphology Not Reportable 08/04/17 10:16 Dimorphic RBCs Not Reportable 08/04/17 10:16 Polychromasia Not Reportable 08/04/17 10:16 Hypochromasia 1+ 08/04/17 10:16 Poikilocytosis Not Reportable 08/04/17 10:16 Anisocytosis 1+ 08/04/17 10:16 Microcytosis Not Reportable 08/04/17 10:16 Macrocytosis 1+ 08/04/17 10:16 Spherocytes Not Reportable 08/04/17 10:16 Pappenheimer Bodies Not Reportable 08/04/17 10:16 Sickle Cells Not Reportable 08/04/17 10:16 Target Cells Not Reportable 08/04/17 10:16 Tear Drop Cells Not Reportable 08/04/17 10:16 Ovalocytes Not Reportable 08/04/17 10:16 Helmet Cells Not Reportable 08/04/17 10:16 [place] Bodies Not Reportable 08/04/17 10:16 [place] Rings Not Reportable 08/04/17 10:16 [place] Cells Not Reportable 08/04/17 10:16 Bite Cells Not Reportable 08/04/17 10:16 Crenated Cell Not Reportable 08/04/17 10:16 Elliptocytes Not Reportable 08/04/17 10:16 Acanthocytes (Spur) Not Reportable 08/04/17 10:16 Rouleaux Not Reportable 08/04/17 10:16 Hemoglobin C Crystals Not Reportable 08/04/17 10:16 Schistocytes Not Reportable 08/04/17 10:16 Malaria parasites Not Reportable 08/04/17 10:16 Roney Bodies Not Reportable 08/04/17 10:16 Hem Pathologist Commnt No 08/04/17 10:16 PT 25.0 Sec. (12.2-14.9) H 08/04/17 10:16 INR 2.11 (0.87-1.13) H 08/04/17 10:16 APTT 42.2 Sec. (24.2-36.6) H 07/31/17 10:50 POC Sodium 147 mmol/L (138-146) H 07/31/17 17:09 POC Potassium 5.0 (3.5-4.9) H 07/31/17 17:09 POC Chloride 103 (98-109) 07/31/17 17:09 Sodium 138 mmol/L (137-145) 08/05/17 06:37 Potassium 4.0 mmol/L (3.6-5.0) 08/05/17 06:37 Chloride 105.1 mmol/L (98-107) 08/05/17 06:37 Carbon Dioxide 28 mmol/L (22-30) 08/05/17 06:37 Anion Gap 9 mmol/L 08/05/17 06:37 POC BUN 24 mg/dl (8-26) 07/31/17 17:09 BUN 15 mg/dL (9-20) 08/05/17 06:37 Creatinine 0.6 mg/dL (0.8-1.5) L 08/05/17 06:37 Estimated GFR > 60 ml/min 08/05/17 06:37 BUN/Creatinine Ratio 25 % 08/05/17 06:37 Glucose 93 mg/dL (75-100) 08/05/17 06:37 POC Glucose 110 (70-105) H 07/31/17 17:09 Lactic Acid 3.70 mmol/L (0.7-2.0) H* 07/31/17 10:50 Calcium 7.4 mg/dL (8.4-10.2) L 08/05/17 06:37 Phosphorus 2.40 mg/dL (2.5-4.5) L D 08/03/17 16:31 Magnesium 1.60 mg/dL (1.7-2.3) L 08/03/17 16:32 Total Bilirubin 5.10 mg/dL (0.1-1.2) H 08/05/17 06:37 Direct Bilirubin 3.3 mg/dL (0-0.2) H 08/05/17 06:37 Indirect Bilirubin 1.8 mg/dL 08/05/17 06:37 AST 214 units/L (5-40) H 08/05/17 06:37 ALT 101 units/L (7-56) H 08/05/17 06:37 Alkaline Phosphatase 96 units/L (35-129) 08/05/17 06:37 Ammonia 163.0 umol/L (25-60) H 08/05/17 06:37 Total Protein 6.7 g/dL (6.3-8.2) 08/05/17 06:37 Albumin 1.4 g/dL (3.9-5) L 08/05/17 06:37 Albumin/Globulin Ratio 0.3 % 08/05/17 06:37 Lipase 28 units/L (13-60) 07/31/17 10:50 Urine Opiates Screen Presumptive negative 07/31/17 16:54 Urine Methadone Screen Presumptive negative 07/31/17 16:54 Ur Barbiturates Screen Presumptive negative 07/31/17 16:54 Ur Phencyclidine Scrn Presumptive negative 07/31/17 16:54 Ur Amphetamines Screen Presumptive negative 07/31/17 16:54 U Benzodiazepines Scrn Presumptive negative 07/31/17 16:54 Urine Cocaine Screen Presumptive negative 07/31/17 16:54 U Marijuana (THC) Screen Presumptive negative 07/31/17 16:54 Drugs of Abuse Note Disclamer 07/31/17 16:54 Plasma/Serum Alcohol < 0.01 % (0-0.07) 07/31/17 12:56 Hep Bs Antigen Reactive (Negative) 08/01/17 04:01 Hep B Core Total Ab Reactive (Nonreactive) H 08/01/17 04:01 Hepatitis C Antibody Non-reactive (NonReactive) 08/01/17 04:01 Blood Type O POSITIVE 07/31/17 10:50 Antibody Screen Negative 07/31/17 10:50 Crossmatch See Detail 07/31/17 10:50
--- NOTE | 2017-08-05 13:34 | Gastroenterology Progress Note ---
Assessment and Plan GI: presented w/ UGI bleed w/ PUD noted - stable w/o further signs bleeding - continue PPI ivm follow h/h 2. Liver: pt w/ h/o HIV w/ cirrhosis now w/ encephalopathy - if no improvement today w/ start Lactulose enema - follow labs - will follow closely Subjective Date of service: 08/05/17 Principal diagnosis: DU Interval history: - no signs bleeding overnight per staff. Reports lethargic and not coherent per staff. Still restrained Objective - Exam Narrative Exam: lethargic, restrained - Constitutional Vitals: Temp Pulse Resp BP Pulse Ox 98.3 F 93 H 20 138/82 92 08/05/17 07:28 08/05/17 07:28 08/05/17 07:28 08/05/17 07:28 08/05/17 07:28 General appearance: no acute distress - EENT Eyes: PERRL - Respiratory Respiratory: bilateral: CTA - Cardiovascular Rhythm: regular Heart Sounds: Present: S1 & S2 - Gastrointestinal General gastrointestinal: Present: soft, non-tender, non-distended - Labs CBC & Chem 7: 08/05/17 06:37 08/05/17 06:37 Labs: Laboratory Results - last 24 hr 08/05/17 08/05/17 08/05/17 06:37 06:37 06:37 WBC 4.6 RBC 2.39 L Hgb 8.4 L Hct 25.0 L MCV 105 H MCH 35 H MCHC 34 RDW 19.5 H Plt Count 56 L Lymph % (Auto) 26.7 [place] % (Auto) 13.2 H Eos % (Auto) 3.3 Baso % (Auto) 0.6 Lymph # 1.2 [place] # 0.6 Eos # 0.2 Baso # 0.0 Seg Neutrophils % 56.2 Seg Neutrophils # 2.6 Sodium 138 Potassium 4.0 Chloride 105.1 Carbon Dioxide 28 Anion Gap 9 BUN 15 Creatinine 0.6 L Estimated GFR > 60 BUN/Creatinine Ratio 25 Glucose 93 Calcium 7.4 L Total Bilirubin 5.10 H Direct Bilirubin 3.3 H Indirect Bilirubin 1.8 AST 214 H ALT 101 H Alkaline Phosphatase 96 Ammonia 163.0 H Total Protein 6.7 Albumin 1.4 L Albumin/Globulin Ratio 0.3
[2017-08-05] MEDS: CEPHULAC PR SCH ×2 (16:28→23:00)
[2017-08-05] MEDS ORDERED: LASIX IV ONE (17:14)
[2017-08-05] MEDS: DUONEB *Not for PRN Use IH SCH (19:53)
[2017-08-06] MEDS: DUONEB *Not for PRN Use IH SCH ×4 (01:18→19:55)
[2017-08-06] MEDS: ATIVAN IV PRN ×2 (03:08→12:21)
[2017-08-06 06:32] LABS: Hematocrit 27.3 % (35.5-45.6); Mean Corpuscular HGB Conc 33 % (32-34); Mean Corpuscular Hemoglobin 35 pg (28-32); Mean Corpuscular Volume 106 fl (84-94); Red Blood Count 2.57 M/mm3 (3.65-5.03)
[2017-08-06 06:33] LABS: Platelet Count 57 K/mm3 (140-440); Red Cell Distribution Width 21.8 % (13.2-15.2)
[2017-08-06 06:42] LABS: INR 2.05 (0.87-1.13)
[2017-08-06 06:59] LABS: Alanine Aminotransferase 102 units/L (7-56); Albumin 1.4 g/dL (3.9-5); BUN/Creatinine Ratio 25; Bilirubin,Direct 3.8 mg/dL (0-0.2); Blood Urea Nitrogen 15 mg/dL (9-20); Calcium 7.4 mg/dL (8.4-10.2); Hemolysis Index 0
[2017-08-06 08:07] LABS: Basophils % (Manual) 0 % (0.0-1.8); Total Cells Counted 100
[2017-08-06 08:08] LABS: Anisocytosis 2+
[2017-08-06 08:09] LABS: Platelet Estimate Cons; Target Cells Few
--- NOTE | 2017-08-06 08:10 | Event Note ---
Date: 08/05/17 Nurse reports that patient is in acute resp distress and has chest congestion Vital signs reviwed, when I evaluated the patient,pt in mild resp distress, with miguelina crackles Dc IV fluids,Lasix 40mg IV stat and daily, Neb treatments,Resp therapist advised. Patient is already on nebs PRN, Bipap as needed ,Will check CXR am Plan of care reviewed with the nurse Ms Martinez and Charge nurse
--- NOTE | 2017-08-06 08:37 | XRay Report ---
AP CHEST: HISTORY: Shortness of breath Hyperinflated lungs rather extensive scarring/volume loss in the right upper lobe is stable since 07/31/17. No evidence for acute infiltrate, pleural effusion or pneumothorax. Heart size and pulmonary vascularity remain within normal limits. IMPRESSION: No change since the exam 6 days ago. Hyperinflated lungs with chronic scarring/collapse of the right upper lobe.
--- NOTE | 2017-08-06 09:10 | Progress Note ---
Assessment and Plan Assessment and plan: --Severe Metabolic encephalopathy ; secondary to underlying hepatic encephalopathy Advanced AIDS,Neuro checks, supportive care, unable to get CT head due to severe agitation --Hepatic encephalopathy /very high ammonia levels with altered level of consciousness Agitation and aggression , continue lactulose , restrained for safety , GI following --Cirrhosis liver; LFTs trending down, GI following --Coagulopathy; secondary to cirrhosis liver, closely monitor, vitamin K as needed --Severe thrombocytopenia; secondary to cirrhosis of liver, transfuse platelets as needed --Severe protein calorie malnutrition; nutrition supplements and supportive care --Acute blood loss anemia secondary to upper GI bleeding; Requiring blood transfusion, status post 3 PRBC transfusion Patient's hemoglobin improved to 8.4, Transfuse as needed No new episodes of GI bleeding --Acute upper GI bleeding; Status post EGD x2, 2 large (5-7mm) ulcers in duodenum without visible vessel seen, Moderate erosive gastritis, cold bx of antrum for H pylori Medium hiatal hernia, LA Grade C erosive esophagitis, no new episodes of bleeding --HIV AIDS; ID evaluation tomorrow patient will follow with health Department upon discharge , --DVT prophylaxis; SCDs, no pharmacologic anticoagulation in view of GI bleeding Anemia, coagulopathy and thrombocytopenia We will try Dobbhoff placement and tube feedings Patient may not cooperate secondary to encephalopathy If unable to place dobhoff consider TPN History Interval history: Patient seen and examined medical records reviewed Patient is an patient is severely encephalopathy, agitated and aggressive In mild distress No new events reported by the nursing staff Vital signs reviewed Unable to place Dobbhoff tube feed the patient because of agitation Hospitalist Physical - Constitutional Vitals: Temp Pulse Resp BP Pulse Ox 98.8 F 95 H 28 H 128/74 98 08/06/17 07:59 08/06/17 07:59 08/06/17 07:59 08/06/17 07:59 08/06/17 07:59 General appearance: Present: no acute distress, cachectic, disheveled, other ( aggressive and agitated) - EENT Eyes: Present: PERRL - Neck Neck: Present: supple, normal ROM - Respiratory Respiratory effort: normal, labored Respiratory: bilateral: diminished, negative: rales, rhonchi, wheezing - Cardiovascular Rhythm: regular Heart Sounds: Present: S1 & S2 - Extremities Extremities: no ischemia, No edema - Abdominal General gastrointestinal: soft, non-tender, non-distended, normal bowel sounds - Integumentary Integumentary: Present: clear, warm - Psychiatric Psychiatric: agitated, other (confused, aggressive) - Neurologic Neurologic: other (confused,encephalopathic) Results - Labs CBC & Chem 7: 08/06/17 05:59 08/06/17 05:59 Labs: Laboratory Last Values WBC 5.0 K/mm3 (4.5-11.0) 08/06/17 05:59 RBC 2.57 M/mm3 (3.65-5.03) L 08/06/17 05:59 Hgb 9.0 gm/dl (11.8-15.2) L 08/06/17 05:59 POC Hgb 6.8 (12-17) L 07/31/17 17:09 Hct 27.3 % (35.5-45.6) L 08/06/17 05:59 POC Hct 20 (38-51) L 07/31/17 17:09 MCV 106 fl (84-94) H 08/06/17 05:59 MCH 35 pg (28-32) H 08/06/17 05:59 MCHC 33 % (32-34) 08/06/17 05:59 RDW 21.8 % (13.2-15.2) H 08/06/17 05:59 Plt Count 57 K/mm3 (140-440) L 08/06/17 05:59 Lymph % (Auto) 26.7 % (13.4-35.0) 08/05/17 06:37 Moore % (Auto) 13.2 % (0.0-7.3) H 08/05/17 06:37 Eos % (Auto) 3.3 % (0.0-4.3) 08/05/17 06:37 Baso % (Auto) 0.6 % (0.0-1.8) 08/05/17 06:37 Lymph # 1.2 K/mm3 (1.2-5.4) 08/05/17 06:37 Moore # 0.6 K/mm3 (0.0-0.8) 08/05/17 06:37 Eos # 0.2 K/mm3 (0.0-0.4) 08/05/17 06:37 Baso # 0.0 K/mm3 (0.0-0.1) 08/05/17 06:37 Add Manual Diff Complete 08/06/17 05:59 Total Counted 100 08/06/17 05:59 Seg Neutrophils % 56.2 % (40.0-70.0) 08/05/17 06:37 Seg Neuts % (Manual) 90.0 % (40.0-70.0) H 08/06/17 05:59 Band Neutrophils % 0 % 08/06/17 05:59 Lymphocytes % (Manual) 4.0 % (13.4-35.0) L 08/06/17 05:59 Reactive Lymphs % (Man) 1.0 % 08/06/17 05:59 Monocytes % (Manual) 3.0 % (0.0-7.3) 08/06/17 05:59 Eosinophils % (Manual) 2.0 % (0.0-4.3) 08/06/17 05:59 Basophils % (Manual) 0 % (0.0-1.8) 08/06/17 05:59 Metamyelocytes % 0 % 08/06/17 05:59 Myelocytes % 0 % 08/06/17 05:59 Promyelocytes % 0 % 08/06/17 05:59 Blast Cells % 0 % 08/06/17 05:59 Nucleated RBC % 1.0 % (0.0-0.9) H 08/06/17 05:59 Seg Neutrophils # 2.6 K/mm3 (1.8-7.7) 08/05/17 06:37 Seg Neutrophils # Man 4.5 K/mm3 (1.8-7.7) 08/06/17 05:59 Band Neutrophils # 0.0 K/mm3 08/06/17 05:59 Lymphocytes # (Manual) 0.2 K/mm3 (1.2-5.4) L 08/06/17 05:59 Abs React Lymphs (Man) 0.1 K/mm3 08/06/17 05:59 Monocytes # (Manual) 0.2 K/mm3 (0.0-0.8) 08/06/17 05:59 Eosinophils # (Manual) 0.1 K/mm3 (0.0-0.4) 08/06/17 05:59 Basophils # (Manual) 0.0 K/mm3 (0.0-0.1) 08/06/17 05:59 Metamyelocytes # 0.0 K/mm3 08/06/17 05:59 Myelocytes # 0.0 K/mm3 08/06/17 05:59 Promyelocytes # 0.0 K/mm3 08/06/17 05:59 Blast Cells # 0.0 K/mm3 08/06/17 05:59 WBC Morphology Not Reportable 08/06/17 05:59 Hypersegmented Neuts Not Reportable 08/06/17 05:59 Hyposegmented Neuts Not Reportable 08/06/17 05:59 Hypogranular Neuts Not Reportable 08/06/17 05:59 Smudge Cells Not Reportable 08/06/17 05:59 Toxic Granulation Not Reportable 08/06/17 05:59 Toxic Vacuolation Not Reportable 08/06/17 05:59 Dohle Bodies Not Reportable 08/06/17 05:59 Pelger-Huet Anomaly Not Reportable 08/06/17 05:59 Wellington Rods Not Reportable 08/06/17 05:59 Platelet Estimate Cons 08/06/17 05:59 Clumped Platelets Not Reportable 08/06/17 05:59 Plt Clumps, EDTA Not Reportable 08/06/17 05:59 Large Platelets Not Reportable 08/06/17 05:59 Giant Platelets Not Reportable 08/06/17 05:59 Platelet Satelliting Not Reportable 08/06/17 05:59 Plt Morphology Comment Not Reportable 08/06/17 05:59 RBC Morphology Not Reportable 08/06/17 05:59 Dimorphic RBCs Not Reportable 08/06/17 05:59 Polychromasia Few 08/06/17 05:59 Hypochromasia Not Reportable 08/06/17 05:59 Poikilocytosis Not Reportable 08/06/17 05:59 Anisocytosis 2+ 08/06/17 05:59 Microcytosis Not Reportable 08/06/17 05:59 Macrocytosis Not Reportable 08/06/17 05:59 Spherocytes Not Reportable 08/06/17 05:59 Pappenheimer Bodies Not Reportable 08/06/17 05:59 Sickle Cells Not Reportable 08/06/17 05:59 Target Cells Few 08/06/17 05:59 Tear Drop Cells Not Reportable 08/06/17 05:59 Ovalocytes Not Reportable 08/06/17 05:59 Helmet Cells Not Reportable 08/06/17 05:59 Roberts-Neal Bodies Not Reportable 08/06/17 05:59 [place] Rings Not Reportable 08/06/17 05:59 Piter Cells Not Reportable 08/06/17 05:59 Bite Cells Not Reportable 08/06/17 05:59 Crenated Cell Not Reportable 08/06/17 05:59 Elliptocytes Not Reportable 08/06/17 05:59 Acanthocytes (Spur) Not Reportable 08/06/17 05:59 Rouleaux Not Reportable 08/06/17 05:59 Hemoglobin C Crystals Not Reportable 08/06/17 05:59 Schistocytes Not Reportable 08/06/17 05:59 Malaria parasites Not Reportable 08/06/17 05:59 Roney Bodies Not Reportable 08/06/17 05:59 Hem Pathologist Commnt No 08/06/17 05:59 PT 24.4 Sec. (12.2-14.9) H 08/06/17 05:59 INR 2.05 (0.87-1.13) H 08/06/17 05:59 APTT 42.2 Sec. (24.2-36.6) H 07/31/17 10:50 POC Sodium 147 mmol/L (138-146) H 07/31/17 17:09 POC Potassium 5.0 (3.5-4.9) H 07/31/17 17:09 POC Chloride 103 (98-109) 07/31/17 17:09 Sodium 138 mmol/L (137-145) 08/06/17 05:59 Potassium 3.7 mmol/L (3.6-5.0) 08/06/17 05:59 Chloride 102.5 mmol/L (98-107) 08/06/17 05:59 Carbon Dioxide 26 mmol/L (22-30) 08/06/17 05:59 Anion Gap 13 mmol/L 08/06/17 05:59 POC BUN 24 mg/dl (8-26) 07/31/17 17:09 BUN 15 mg/dL (9-20) 08/06/17 05:59 Creatinine 0.6 mg/dL (0.8-1.5) L 08/06/17 05:59 Estimated GFR > 60 ml/min 08/06/17 05:59 BUN/Creatinine Ratio 25 % 08/06/17 05:59 Glucose 83 mg/dL (75-100) 08/06/17 05:59 POC Glucose 110 (70-105) H 07/31/17 17:09 Lactic Acid 3.70 mmol/L (0.7-2.0) H* 07/31/17 10:50 Calcium 7.4 mg/dL (8.4-10.2) L 08/06/17 05:59 Phosphorus 3.80 mg/dL (2.5-4.5) 08/06/17 05:59 Magnesium 1.60 mg/dL (1.7-2.3) L 08/06/17 05:59 Total Bilirubin 6.00 mg/dL (0.1-1.2) H 08/06/17 05:59 Direct Bilirubin 3.8 mg/dL (0-0.2) H 08/06/17 05:59 Indirect Bilirubin 2.2 mg/dL 08/06/17 05:59 AST 210 units/L (5-40) H 08/06/17 05:59 ALT 102 units/L (7-56) H 08/06/17 05:59 Alkaline Phosphatase 96 units/L (35-129) 08/06/17 05:59 Ammonia 115.0 umol/L (25-60) H 08/06/17 08:21 Total Protein 6.9 g/dL (6.3-8.2) 08/06/17 05:59 Albumin 1.4 g/dL (3.9-5) L 08/06/17 05:59 Albumin/Globulin Ratio 0.3 % 08/06/17 05:59 Lipase 28 units/L (13-60) 07/31/17 10:50 Urine Opiates Screen Presumptive negative 07/31/17 16:54 Urine Methadone Screen Presumptive negative 07/31/17 16:54 Ur Barbiturates Screen Presumptive negative 07/31/17 16:54 Ur Phencyclidine Scrn Presumptive negative 07/31/17 16:54 Ur Amphetamines Screen Presumptive negative 07/31/17 16:54 U Benzodiazepines Scrn Presumptive negative 07/31/17 16:54 Urine Cocaine Screen Presumptive negative 07/31/17 16:54 U Marijuana (THC) Screen Presumptive negative 07/31/17 16:54 Drugs of Abuse Note Disclamer 07/31/17 16:54 Plasma/Serum Alcohol < 0.01 % (0-0.07) 07/31/17 12:56 Hep Bs Antigen Reactive (Negative) 08/01/17 04:01 Hep B Core Total Ab Reactive (Nonreactive) H 08/01/17 04:01 Hepatitis C Antibody Non-reactive (NonReactive) 08/01/17 04:01 Blood Type O POSITIVE 07/31/17 10:50 Antibody Screen Negative 07/31/17 10:50 Crossmatch See Detail 07/31/17 10:50
[2017-08-06] MEDS: MAG-OX PO SCH (10:00)
[2017-08-06] MEDS: BACTRIM DS PO SCH (10:00)
[2017-08-06] MEDS: THERAGRAN-M Tab PO SCH (10:00)
[2017-08-06] MEDS: PROTONIX PO SCH (10:00)
[2017-08-06] MEDS: MUCINEX ER PO SCH ×2 (10:00→23:20)
[2017-08-06] MEDS: FEOSOL PO SCH ×2 (10:00→23:20)
[2017-08-06] MEDS ORDERED: MAGNESIUM SULFATE 2GM/50ML 2 GM/50 ML BAG IV ONE (10:00)
--- NOTE | 2017-08-06 11:20 | Consultation ---
History of Present Illness - Reason for Consult Consult date: 08/06/17 HIV, hepatic encephalopathy Requesting physician: YASIR HOPPER - History of Present Illness 56 y/o male with history of AIDS (unknown CD4/VL/Medication Noncompliance) , TB S/P Full course antibiotic therapy, HBV, Cirrhosis, COPD Admitted on and due to rectal bleeding for 24 hours associated with dizziness and abdominal pain. Patient is currently confused, aggressive and agitated and unable to provide a history. He is on restraints. In the ED, initial temperature was 98.3, heart rate 84, O2 sat 100, blood pressure 107/71 and went down to 84/56. White count 5K. Hemoglobin 8.8. platelets 68. INR 2.5. PTT 42. Lactic acid 3.7. AST 238. ALT 101. Ammonia level was 69. Urine drug screen was negative. Creatinine 0.8. Potassium 6.6. Chest x-ray showed hyperinflated or extensive cystic changes of the right upper lobe. Microbiology: none Current Antimicrobials: bactrim DS 1 tab qd Previous Antimicrobials: Past History Past Medical History: HIV/AIDS (noncompliant with [facility]), liver disease ( Hepatitis B/cirrhosis) Past Surgical History: No surgical history Social history: denies: smoking, alcohol abuse, IV drug use Family history: no significant family history Medications and Allergies Allergies Allergy/AdvReac Type Severity Reaction Status Date / Time No Known Allergies Allergy Verified 10/29/16 14:42 Home Medications Medication Instructions Recorded Confirmed Last Taken Type Sulfamethoxazole/Trimethoprim 1 each PO BID #14 tablet 10/29/16 07/31/17 Unknown Rx [Bactrim DS TAB] Active Meds: Active Medications Acetaminophen (Tylenol) 325 mg PO Q6H PRN PRN Reason: Pain, Mild (1-3) Albuterol (Proventil) 2.5 mg IH Q3HRT PRN PRN Reason: Shortness Of Breath Last Admin: 08/05/17 17:00 Dose: 2.5 mg Albuterol/Ipratropium (Duoneb *Not For Prn Use*) 1 ampul IH Q6HRT [facility] Last Admin: 08/06/17 10:51 Dose: Not Given Benzonatate (Tessalon Perles) 100 mg PO Q6H PRN PRN Reason: Cough Last Admin: 08/02/17 00:49 Dose: 100 mg Diphenhydramine HCl (Benadryl) 25 mg IV Q6H PRN PRN Reason: Itching Last Admin: 08/02/17 23:20 Dose: 25 mg Ferrous Sulfate (Feosol) 325 mg PO BID [facility] Last Admin: 08/05/17 22:00 Dose: Not Given Furosemide (Lasix) 40 mg IV QDAY [facility] Guaifenesin (Mucinex Er) 600 mg PO BID [facility] Last Admin: 08/05/17 22:00 Dose: Not Given Magnesium Sulfate (Magnesium Sulfate 2gm/50ml) 2 gm in 50 mls @ 25 mls/hr IV ONCE ONE Stop: 08/06/17 11:59 Lactulose (Cephulac) 200 gm IN BID [facility] Last Admin: 08/05/17 23:00 Dose: 200 gm Lorazepam (Ativan) 0.5 mg IV Q4H PRN PRN Reason: Agitation Last Admin: 08/06/17 03:08 Dose: 0.5 mg Magnesium Oxide (Mag-Ox) 400 mg PO QDAY [facility] Last Admin: 08/05/17 10:00 Dose: Not Given Multivitamins/Minerals (Theragran-M Tab) 1 each PO QDAY [facility] Last Admin: 08/05/17 10:00 Dose: Not Given Pantoprazole Sodium (Protonix) 40 mg PO QDAY [facility] Last Admin: 08/05/17 10:00 Dose: Not Given Sodium Chloride (Sodium Chloride Flush Syringe 10 Ml) 10 ml IV BID [facility] Last Admin: 08/05/17 22:00 Dose: 10 ml Sodium Chloride (Sodium Chloride Flush Syringe 10 Ml) 10 ml IV PRN PRN PRN Reason: LINE FLUSH Last Admin: 08/04/17 23:01 Dose: 10 ml Sucralfate (Carafate) 1 gm PO Q6HR [facility] Last Admin: 08/06/17 00:00 Dose: Not Given Trimethoprim/Sulfamethoxazole (Bactrim Ds) 1 each PO DAILY [facility] Last Admin: 08/05/17 10:00 Dose: Not Given Review of Systems ROS unobtainable: due to mental status Physical Examination - Physical Exam Narrative exam: General appearance: Alert agitated combative in NAD on restraints Eyes: anicteric sclerae, moist conjunctivae; no lid-lag; PERRLA HENT: Atraumatic; oropharynx unable to eval Neck: Trachea midline; supple, no thyromegaly or lymphadenopathy Lungs: CTA CV: RRR, no murmurs Abdomen: Soft, non-tender; no masses or hepatosplenomegaly Extremities: Left arm marked edema and no erythema or heat Skin: Normal temperature, turgor and texture; no rash, ulcers or subcutaneous nodules Psych: Agitation Neuro: alert agitation confused Lines: No CVL / PICC - Constitutional Vitals: Vital Signs Temp Pulse Resp BP Pulse Ox 98.8 F 95 H 28 H 128/74 98 08/06/17 07:59 08/06/17 07:59 08/06/17 07:59 08/06/17 07:59 08/06/17 07:59 Temperature -Last 24 Hours Temperature 98.8 F Temperature 97.7 F Temperature 98.3 F Results - Labs CBC & Chem 7: 08/06/17 05:59 08/06/17 05:59 Labs: Abnormal lab results 08/06/17 08/06/17 08/06/17 Range/Units 05:59 05:59 05:59 RBC 2.57 L (3.65-5.03) M/mm3 Hgb 9.0 L (11.8-15.2) gm/dl Hct 27.3 L (35.5-45.6) % MCV 106 H (84-94) fl MCH 35 H (28-32) pg RDW 21.8 H (13.2-15.2) % Plt Count 57 L (140-440) K/mm3 Seg Neuts % (Manual) 90.0 H (40.0-70.0) % Lymphocytes % (Manual) 4.0 L (13.4-35.0) % Nucleated RBC % 1.0 H (0.0-0.9) % Lymphocytes # (Manual) 0.2 L (1.2-5.4) K/mm3 PT 24.4 H (12.2-14.9) Sec. INR 2.05 H (0.87-1.13) Creatinine 0.6 L (0.8-1.5) mg/dL Calcium 7.4 L (8.4-10.2) mg/dL Magnesium 1.60 L (1.7-2.3) mg/dL Total Bilirubin 6.00 H (0.1-1.2) mg/dL Direct Bilirubin 3.8 H (0-0.2) mg/dL AST 210 H (5-40) units/L ALT 102 H (7-56) units/L Ammonia (25-60) umol/L Albumin 1.4 L (3.9-5) g/dL 08/06/17 Range/Units 08:21 RBC (3.65-5.03) M/mm3 Hgb (11.8-15.2) gm/dl Hct (35.5-45.6) % MCV (84-94) fl MCH (28-32) pg RDW (13.2-15.2) % Plt Count (140-440) K/mm3 Seg Neuts % (Manual) (40.0-70.0) % Lymphocytes % (Manual) (13.4-35.0) % Nucleated RBC % (0.0-0.9) % Lymphocytes # (Manual) (1.2-5.4) K/mm3 PT (12.2-14.9) Sec. INR (0.87-1.13) Creatinine (0.8-1.5) mg/dL Calcium (8.4-10.2) mg/dL Magnesium (1.7-2.3) mg/dL Total Bilirubin (0.1-1.2) mg/dL Direct Bilirubin (0-0.2) mg/dL AST (5-40) units/L ALT (7-56) units/L Ammonia 115.0 H (25-60) umol/L Albumin (3.9-5) g/dL Assessment and Plan Assessment: 1) Acute encephalopathy: Likely due to hepatic encephalopathy 2) Acute GI bleed 3) Coagulopathy 4) History of AIDS (unknown CD4/VL/Medication Noncompliance) 5) History of TB S/P Full course antibiotic therapy 6) HBV / Cirrhosis 7) COPD 8) Elevated LFTs Plan: -check CD4/VL -continue bactrim DS 1 tab po qday for prophylaxis -overall prognosis guarded -hepatic encephalopathy per GI Thank you for your consultation, will follow up with you. Barbara Solorzano MD Infectious Diseases Specialist [facility] ([facility] M [phone] O [phone]
[2017-08-06] MEDS: CARAFATE PO SCH ×4 (12:00→23:20)
[2017-08-06] MEDS: LASIX IV SCH (12:21)
[2017-08-06] MEDS: CEPHULAC PR SCH ×3 (14:01→23:50)
--- NOTE | 2017-08-06 17:42 | Event Note ---
Date: 08/06/17 I contacted patient's sister in [place] Ms. Raimundo Dick [phone], discussed in detail Mr. Stefan Reyes's, medical condition Workup so far, poor prognosis, treatment plan, she verbalized understanding, planning to visit him in the next 1 or 2 days Ms. Eubanks verbalize understanding of patient's poor prognosis, initially she reports that she is not aware of patient's HIV status We will discuss CODE STATUS during the next conversation Continue current management Also discussed with Raheem, patient's nephew
[2017-08-06] MEDS: SODIUM CHLORIDE FLUSH SYRINGE 10 ML IV SCH (20:48)
--- NOTE | 2017-08-06 21:20 | Gastroenterology Progress Note ---
Assessment and Plan 1. AMS 2. Cirrhosis 3. HIV -will increase lactulose enema intervals to every 4 hours. can decrease timing/ switch to oral once mental status improves -will d/c ativan for time being as this can worsen his HE -noted plans to address goals of care with [facility] Subjective Date of service: 08/06/17 Principal diagnosis: encephalopathy Interval history: patient confused and in restraints at time of exam. not taking medications by mouth. nephew at bedside. Objective - Exam Narrative Exam: Gen: confused/altered CV: RRR Lungs: CTAB Abd: soft, nd, +bs Ext: in restraints - Constitutional Vitals: Temp Pulse Resp BP Pulse Ox 98.1 F 100 H 14 133/69 96 08/06/17 16:49 08/06/17 20:09 08/06/17 20:09 08/06/17 16:49 08/06/17 20:01 - Labs CBC & Chem 7: 08/06/17 05:59 08/06/17 05:59 Labs: Laboratory Results - last 24 hr 08/06/17 08/06/17 08/06/17 05:59 05:59 05:59 WBC 5.0 RBC 2.57 L Hgb 9.0 L Hct 27.3 L MCV 106 H MCH 35 H MCHC 33 RDW 21.8 H Plt Count 57 L Add Manual Diff Complete Total Counted 100 Seg Neuts % (Manual) 90.0 H Band Neutrophils % 0 Lymphocytes % (Manual) 4.0 L Reactive Lymphs % (Man) 1.0 Monocytes % (Manual) 3.0 Eosinophils % (Manual) 2.0 Basophils % (Manual) 0 Metamyelocytes % 0 Myelocytes % 0 Promyelocytes % 0 Blast Cells % 0 Nucleated RBC % 1.0 H Seg Neutrophils # Man 4.5 Band Neutrophils # 0.0 Lymphocytes # (Manual) 0.2 L Abs React Lymphs (Man) 0.1 Monocytes # (Manual) 0.2 Eosinophils # (Manual) 0.1 Basophils # (Manual) 0.0 Metamyelocytes # 0.0 Myelocytes # 0.0 Promyelocytes # 0.0 Blast Cells # 0.0 WBC Morphology Not Reportable Hypersegmented Neuts Not Reportable Hyposegmented Neuts Not Reportable Hypogranular Neuts Not Reportable Smudge Cells Not Reportable Toxic Granulation Not Reportable Toxic Vacuolation Not Reportable Dohle Bodies Not Reportable Pelger-Huet Anomaly Not Reportable [place] Rods Not Reportable Platelet Estimate Cons Clumped Platelets Not Reportable Plt Clumps, EDTA Not Reportable Large Platelets Not Reportable Giant Platelets Not Reportable Platelet Satelliting Not Reportable Plt Morphology Comment Not Reportable RBC Morphology Not Reportable Dimorphic RBCs Not Reportable Polychromasia Few Hypochromasia Not Reportable Poikilocytosis Not Reportable Anisocytosis 2+ Microcytosis Not Reportable Macrocytosis Not Reportable Spherocytes Not Reportable Pappenheimer Bodies Not Reportable Sickle Cells Not Reportable Target Cells Few Tear Drop Cells Not Reportable Ovalocytes Not Reportable Helmet Cells Not Reportable Roberts-[place] Bodies Not Reportable [place] Rings Not Reportable Piter Cells Not Reportable Bite Cells Not Reportable Crenated Cell Not Reportable Elliptocytes Not Reportable Acanthocytes (Spur) Not Reportable Rouleaux Not Reportable Hemoglobin C Crystals Not Reportable Schistocytes Not Reportable Malaria parasites Not Reportable Roney Bodies Not Reportable Hem Pathologist Commnt No PT 24.4 H INR 2.05 H Sodium 138 Potassium 3.7 Chloride 102.5 Carbon Dioxide 26 Anion Gap 13 BUN 15 Creatinine 0.6 L Estimated GFR > 60 BUN/Creatinine Ratio 25 Glucose 83 Calcium 7.4 L Phosphorus 3.80 Magnesium 1.60 L Total Bilirubin 6.00 H Direct Bilirubin 3.8 H Indirect Bilirubin 2.2 AST 210 H ALT 102 H Alkaline Phosphatase 96 Ammonia Total Protein 6.9 Albumin 1.4 L Albumin/Globulin Ratio 0.3 08/06/17 08:21 WBC RBC Hgb Hct MCV MCH MCHC RDW Plt Count Add Manual Diff Total Counted Seg Neuts % (Manual) Band Neutrophils % Lymphocytes % (Manual) Reactive Lymphs % (Man) Monocytes % (Manual) Eosinophils % (Manual) Basophils % (Manual) Metamyelocytes % Myelocytes % Promyelocytes % Blast Cells % Nucleated RBC % Seg Neutrophils # Man Band Neutrophils # Lymphocytes # (Manual) Abs React Lymphs (Man) Monocytes # (Manual) Eosinophils # (Manual) Basophils # (Manual) Metamyelocytes # Myelocytes # Promyelocytes # Blast Cells # WBC Morphology Hypersegmented Neuts Hyposegmented Neuts Hypogranular Neuts Smudge Cells Toxic Granulation Toxic Vacuolation Dohle Bodies Pelger-Huet Anomaly [place] Rods Platelet Estimate Clumped Platelets Plt Clumps, EDTA Large Platelets Giant Platelets Platelet Satelliting Plt Morphology Comment RBC Morphology Dimorphic RBCs Polychromasia Hypochromasia Poikilocytosis Anisocytosis Microcytosis Macrocytosis Spherocytes Pappenheimer Bodies Sickle Cells Target Cells Tear Drop Cells Ovalocytes Helmet Cells Roberts-[place] Bodies [place] Rings Gould Cells Bite Cells Crenated Cell Elliptocytes Acanthocytes (Spur) Rouleaux Hemoglobin C Crystals Schistocytes Malaria parasites Roney Bodies Hem Pathologist Commnt PT INR Sodium Potassium Chloride Carbon Dioxide Anion Gap BUN Creatinine Estimated GFR BUN/Creatinine Ratio Glucose Calcium Phosphorus Magnesium Total Bilirubin Direct Bilirubin Indirect Bilirubin AST ALT Alkaline Phosphatase Ammonia 115.0 H Total Protein Albumin Albumin/Globulin Ratio
[2017-08-07] MEDS: SODIUM CHLORIDE FLUSH SYRINGE 10 ML IV SCH ×2 (01:10→13:37)
[2017-08-07] MEDS: DUONEB *Not for PRN Use IH SCH ×5 (02:10→20:08)
--- NOTE | 2017-08-07 03:28 | XRay Report ---
FINAL REPORT EXAM: XR ABDOMEN 1V AP HISTORY: verify NG tube placement TECHNIQUE: A limited portable upright view of the upper abdomen was obtained. FINDINGS: The tip of the NG tube is in the proximal stomach and needs to be advanced at least 5 cm. The bowel gas pattern is unremarkable. IMPRESSION: Tip of the NG tube is in the proximal stomach kidneys be advanced at least 5 cm.
[2017-08-07] MEDS: CEPHULAC PR SCH ×4 (03:47→18:31)
[2017-08-07] MEDS: CARAFATE PO SCH ×4 (05:06→23:35)
[2017-08-07 07:06] LABS: Basophils % (Auto) 0.4 % (0.0-1.8); Eosinophils # (Auto) 0.1 K/mm3 (0.0-0.4); Eosinophils % (Auto) 1.6 % (0.0-4.3); Hematocrit 28.1 % (35.5-45.6); Hemoglobin 9.2 gm/dl (11.8-15.2); Lymphocytes # (Auto) 1.4 K/mm3 (1.2-5.4); Lymphocytes % (Auto) 22.4 % (13.4-35.0); Mean Corpuscular HGB Conc 33 % (32-34); Mean Corpuscular Hemoglobin 35 pg (28-32); Mean Corpuscular Volume 106 fl (84-94); Monocytes # (Auto) 0.7 K/mm3 (0.0-0.8); Monocytes % (Auto) 11.9 % (0.0-7.3); Red Blood Count 2.65 M/mm3 (3.65-5.03)
[2017-08-07 07:12] LABS: Platelet Count 65 K/mm3 (140-440); Red Cell Distribution Width 24.3 % (13.2-15.2)
[2017-08-07 07:26] LABS: Alanine Aminotransferase 103 units/L (7-56); Albumin 1.7 g/dL (3.9-5); BUN/Creatinine Ratio 24; Bilirubin,Direct 4.5 mg/dL (0-0.2); Blood Urea Nitrogen 17 mg/dL (9-20); Calcium 7.6 mg/dL (8.4-10.2); Hemolysis Index 0
--- NOTE | 2017-08-07 08:11 | XRay Report ---
AP ABDOMEN: HISTORY: Verify feeding tube placement. The distal tip of the feeding tube appears to terminate just beyond the GE junction in the cardia of the stomach. Advancement by 8-10 cm is recommended. The visualized upper abdominal gas pattern is unremarkable. The lower lung zones are hyperinflated suggesting COPD. IMPRESSION: Feeding tube terminates just beyond the GE junction. See above.
--- NOTE | 2017-08-07 09:01 | Progress Note ---
Assessment and Plan Assessment and plan: --Severe Metabolic encephalopathy ; secondary to underlying hepatic encephalopathy Significantly improved , patient is more alert and awake last Check swallow screen , soft diet and advance as tolerated . --Hepatic encephalopathy /very high ammonia levels with altered level of consciousness Agitation and aggression , continue lactulose , restrained for safety , GI following Patient improvement of ammonia levels, patient is more alert and awake --Cirrhosis liver; LFTs trending down, GI following --Coagulopathy; secondary to cirrhosis liver, --Severe thrombocytopenia; secondary to cirrhosis of liver, transfuse platelets as needed --Lt upper extremity acute DVT; patient is not a candidate for anticoagulation in view of, severe coagulopathy secondary to cirrhosis liver Thrombocytopenia as well as history of GI bleeding and anemia, family members have aware and agree with the plan --Severe protein calorie malnutrition; nutrition supplements and supportive care --Acute blood loss anemia secondary to upper GI bleeding; status post 3 PRBC transfusion Patient's hemoglobin 9.2, Transfuse as needed --Acute upper GI bleeding; Status post EGD x2, 2 large (5-7mm) ulcers in duodenum without visible vessel seen, Moderate erosive gastritis, cold bx of antrum for H pylori Medium hiatal hernia, LA Grade C erosive esophagitis, no new episodes of bleeding --HIV AIDS; ID evaluation noted and appreciated patient will follow with health Department upon discharge , --DVT prophylaxis; SCDs, no pharmacologic anticoagulation Patient may not cooperate secondary to encephalopathy If unable to place dobhoff consider TPN History Interval history: Patient seen and examined this morning medical records reviewed Patient is more alert and awake today responding to very simple questions Less agitation and aggression, asks for food Ammonia level significantly improved No new events reported by the nursing staff Alert and awake not in acute distress Vital signs reviewed Hospitalist Physical - Constitutional Vitals: Temp Pulse Resp BP Pulse Ox 98.3 F 94 H 24 121/72 98 08/07/17 07:39 08/07/17 07:39 08/07/17 07:39 08/07/17 07:39 08/07/17 07:39 General appearance: Present: no acute distress, cachectic, disheveled, other ( more alert and awake) - EENT Eyes: Present: PERRL, EOM intact - Neck Neck: Present: supple - Respiratory Respiratory effort: normal Respiratory: bilateral: diminished, negative: rales, rhonchi, wheezing - Cardiovascular Rhythm: regular Heart Sounds: Present: S1 & S2 - Extremities Extremities: no ischemia, abnormal (left upper extremity swelling) Peripheral Pulses: within normal limits - Abdominal General gastrointestinal: soft, non-tender, non-distended, normal bowel sounds - Integumentary Integumentary: Present: clear, warm - Psychiatric Psychiatric: appropriate mood/affect, other (sometimes confused) - Neurologic Neurologic: moves all extremities Results - Labs CBC & Chem 7: 08/07/17 05:41 08/07/17 05:41 Labs: Laboratory Last Values WBC 6.3 K/mm3 (4.5-11.0) 08/07/17 05:41 RBC 2.65 M/mm3 (3.65-5.03) L 08/07/17 05:41 Hgb 9.2 gm/dl (11.8-15.2) L 08/07/17 05:41 POC Hgb 6.8 (12-17) L 07/31/17 17:09 Hct 28.1 % (35.5-45.6) L 08/07/17 05:41 POC Hct 20 (38-51) L 07/31/17 17:09 MCV 106 fl (84-94) H 08/07/17 05:41 MCH 35 pg (28-32) H 08/07/17 05:41 MCHC 33 % (32-34) 08/07/17 05:41 RDW 24.3 % (13.2-15.2) H 08/07/17 05:41 Plt Count 65 K/mm3 (140-440) L 08/07/17 05:41 Lymph % (Auto) 22.4 % (13.4-35.0) 08/07/17 05:41 [place] % (Auto) 11.9 % (0.0-7.3) H 08/07/17 05:41 Eos % (Auto) 1.6 % (0.0-4.3) 08/07/17 05:41 Baso % (Auto) 0.4 % (0.0-1.8) 08/07/17 05:41 Lymph # 1.4 K/mm3 (1.2-5.4) 08/07/17 05:41 [place]idan # 0.7 K/mm3 (0.0-0.8) 08/07/17 05:41 Eos # 0.1 K/mm3 (0.0-0.4) 08/07/17 05:41 Baso # 0.0 K/mm3 (0.0-0.1) 08/07/17 05:41 Add Manual Diff Complete 08/06/17 05:59 Total Counted 100 08/06/17 05:59 Seg Neutrophils % 63.7 % (40.0-70.0) 08/07/17 05:41 Seg Neuts % (Manual) 90.0 % (40.0-70.0) H 08/06/17 05:59 Band Neutrophils % 0 % 08/06/17 05:59 Lymphocytes % (Manual) 4.0 % (13.4-35.0) L 08/06/17 05:59 Reactive Lymphs % (Man) 1.0 % 08/06/17 05:59 Monocytes % (Manual) 3.0 % (0.0-7.3) 08/06/17 05:59 Eosinophils % (Manual) 2.0 % (0.0-4.3) 08/06/17 05:59 Basophils % (Manual) 0 % (0.0-1.8) 08/06/17 05:59 Metamyelocytes % 0 % 08/06/17 05:59 Myelocytes % 0 % 08/06/17 05:59 Promyelocytes % 0 % 08/06/17 05:59 Blast Cells % 0 % 08/06/17 05:59 Nucleated RBC % 1.0 % (0.0-0.9) H 08/06/17 05:59 Seg Neutrophils # 4.0 K/mm3 (1.8-7.7) 08/07/17 05:41 Seg Neutrophils # Man 4.5 K/mm3 (1.8-7.7) 08/06/17 05:59 Band Neutrophils # 0.0 K/mm3 08/06/17 05:59 Lymphocytes # (Manual) 0.2 K/mm3 (1.2-5.4) L 08/06/17 05:59 Abs React Lymphs (Man) 0.1 K/mm3 08/06/17 05:59 Monocytes # (Manual) 0.2 K/mm3 (0.0-0.8) 08/06/17 05:59 Eosinophils # (Manual) 0.1 K/mm3 (0.0-0.4) 08/06/17 05:59 Basophils # (Manual) 0.0 K/mm3 (0.0-0.1) 08/06/17 05:59 Metamyelocytes # 0.0 K/mm3 08/06/17 05:59 Myelocytes # 0.0 K/mm3 08/06/17 05:59 Promyelocytes # 0.0 K/mm3 08/06/17 05:59 Blast Cells # 0.0 K/mm3 08/06/17 05:59 WBC Morphology Not Reportable 08/06/17 05:59 Hypersegmented Neuts Not Reportable 08/06/17 05:59 Hyposegmented Neuts Not Reportable 08/06/17 05:59 Hypogranular Neuts Not Reportable 08/06/17 05:59 Smudge Cells Not Reportable 08/06/17 05:59 Toxic Granulation Not Reportable 08/06/17 05:59 Toxic Vacuolation Not Reportable 08/06/17 05:59 Dohle Bodies Not Reportable 08/06/17 05:59 Pelger-Huet Anomaly Not Reportable 08/06/17 05:59 Wellington Rods Not Reportable 08/06/17 05:59 Platelet Estimate Cons 08/06/17 05:59 Clumped Platelets Not Reportable 08/06/17 05:59 Plt Clumps, EDTA Not Reportable 08/06/17 05:59 Large Platelets Not Reportable 08/06/17 05:59 Giant Platelets Not Reportable 08/06/17 05:59 Platelet Satelliting Not Reportable 08/06/17 05:59 Plt Morphology Comment Not Reportable 08/06/17 05:59 RBC Morphology Not Reportable 08/06/17 05:59 Dimorphic RBCs Not Reportable 08/06/17 05:59 Polychromasia Few 08/06/17 05:59 Hypochromasia Not Reportable 08/06/17 05:59 Poikilocytosis Not Reportable 08/06/17 05:59 Anisocytosis 2+ 08/06/17 05:59 Microcytosis Not Reportable 08/06/17 05:59 Macrocytosis Not Reportable 08/06/17 05:59 Spherocytes Not Reportable 08/06/17 05:59 Pappenheimer Bodies Not Reportable 08/06/17 05:59 Sickle Cells Not Reportable 08/06/17 05:59 Target Cells Few 08/06/17 05:59 Tear Drop Cells Not Reportable 08/06/17 05:59 Ovalocytes Not Reportable 08/06/17 05:59 Helmet Cells Not Reportable 08/06/17 05:59 Roberts-Tim[place]-Fernwood Bodies Not Reportable 08/06/17 05:59 Choudrant Rings Not Reportable 08/06/17 05:59 Pitre Cells Not Reportable 08/06/17 05:59 Bite Cells Not Reportable 08/06/17 05:59 Crenated Cell Not Reportable 08/06/17 05:59 Elliptocytes Not Reportable 08/06/17 05:59 Acanthocytes (Spur) Not Reportable 08/06/17 05:59 Rouleaux Not Reportable 08/06/17 05:59 Hemoglobin C Crystals Not Reportable 08/06/17 05:59 Schistocytes Not Reportable 08/06/17 05:59 Malaria parasites Not Reportable 08/06/17 05:59 Roney Bodies Not Reportable 08/06/17 05:59 Hem Pathologist Commnt No 08/06/17 05:59 PT 24.4 Sec. (12.2-14.9) H 08/06/17 05:59 INR 2.05 (0.87-1.13) H 08/06/17 05:59 APTT 42.2 Sec. (24.2-36.6) H 07/31/17 10:50 POC Sodium 147 mmol/L (138-146) H 07/31/17 17:09 POC Potassium 5.0 (3.5-4.9) H 07/31/17 17:09 POC Chloride 103 (98-109) 07/31/17 17:09 Sodium 139 mmol/L (137-145) 08/07/17 05:41 Potassium 3.9 mmol/L (3.6-5.0) 08/07/17 05:41 Chloride 101.8 mmol/L (98-107) 08/07/17 05:41 Carbon Dioxide 27 mmol/L (22-30) 08/07/17 05:41 Anion Gap 14 mmol/L 08/07/17 05:41 POC BUN 24 mg/dl (8-26) 07/31/17 17:09 BUN 17 mg/dL (9-20) 08/07/17 05:41 Creatinine 0.7 mg/dL (0.8-1.5) L 08/07/17 05:41 Estimated GFR > 60 ml/min 08/07/17 05:41 BUN/Creatinine Ratio 24 % 08/07/17 05:41 Glucose 69 mg/dL (75-100) L 08/07/17 05:41 POC Glucose 77 (70-105) 08/07/17 06:51 Lactic Acid 3.70 mmol/L (0.7-2.0) H* 07/31/17 10:50 Calcium 7.6 mg/dL (8.4-10.2) L 08/07/17 05:41 Phosphorus 3.40 mg/dL (2.5-4.5) 08/07/17 05:41 Magnesium 1.80 mg/dL (1.7-2.3) 08/07/17 05:41 Total Bilirubin 7.50 mg/dL (0.1-1.2) H 08/07/17 05:41 Direct Bilirubin 4.5 mg/dL (0-0.2) H 08/07/17 05:41 Indirect Bilirubin 3.0 mg/dL 08/07/17 05:41 AST 210 units/L (5-40) H 08/07/17 05:41 ALT 103 units/L (7-56) H 08/07/17 05:41 Alkaline Phosphatase 102 units/L (35-129) 08/07/17 05:41 Ammonia 115.0 umol/L (25-60) H 08/06/17 08:21 Total Protein 7.5 g/dL (6.3-8.2) 08/07/17 05:41 Albumin 1.7 g/dL (3.9-5) L 08/07/17 05:41 Albumin/Globulin Ratio 0.3 % 08/07/17 05:41 Lipase 28 units/L (13-60) 07/31/17 10:50 Urine Opiates Screen Presumptive negative 07/31/17 16:54 Urine Methadone Screen Presumptive negative 07/31/17 16:54 Ur Barbiturates Screen Presumptive negative 07/31/17 16:54 Ur Phencyclidine Scrn Presumptive negative 07/31/17 16:54 Ur Amphetamines Screen Presumptive negative 07/31/17 16:54 U Benzodiazepines Scrn Presumptive negative 07/31/17 16:54 Urine Cocaine Screen Presumptive negative 07/31/17 16:54 U Marijuana (THC) Screen Presumptive negative 07/31/17 16:54 Drugs of Abuse Note Disclamer 07/31/17 16:54 Plasma/Serum Alcohol < 0.01 % (0-0.07) 07/31/17 12:56 Hep Bs Antigen Reactive (Negative) 08/01/17 04:01 Hep B Core Total Ab Reactive (Nonreactive) H 08/01/17 04:01 Hepatitis C Antibody Non-reactive (NonReactive) 08/01/17 04:01 Blood Type O POSITIVE 07/31/17 10:50 Antibody Screen Negative 07/31/17 10:50 Crossmatch See Detail 07/31/17 10:50
[2017-08-07 09:54] LABS: INR 2.23 (0.87-1.13)
--- NOTE | 2017-08-07 10:50 | Progress Note ---
Assessment and Plan Assessment: 1) Acute encephalopathy: Likely due to hepatic encephalopathy. Doubt opportunistic brain infection pt has no fever. Improving. Unclear if he stopped abruptly his ART causing reactivation of HBV. 2) Acute GI bleed: better 3) Coagulopathy: better 4) History of AIDS (unknown CD4/VL/Medication Noncompliance) 5) History of TB S/P Full course antibiotic therapy 6) HBV / Cirrhosis 7) COPD 8) Elevated LFTs Plan: -follow-up CD4/VL -check HBV-DNA viral load -check cryptococcal serum antigen -continue bactrim DS 1 tab po qday for prophylaxis -overall prognosis guarded -hepatic encephalopathy per GI Thank you for your consultation, will follow up with you. Barbara Solorzano MD Infectious Diseases Specialist [facility] M [phone] O [phone] Subjective Date of service: 08/07/17 Principal diagnosis: encephalopathy Interval history: More alert and calmed down. No fever. talking Microbiology: none Current Antimicrobials: bactrim DS 1 tab qd Previous Antimicrobials: Objective - Exam Narrative Exam: General appearance: Alert agitated combative in NAD on restraints Eyes: anicteric sclerae, moist conjunctivae; no lid-lag; PERRLA HENT: Atraumatic; oropharynx unable to eval Neck: Trachea midline; supple, no thyromegaly or lymphadenopathy Lungs: CTA CV: RRR, no murmurs Abdomen: Soft, non-tender; no masses or hepatosplenomegaly Extremities: Left arm marked edema and no erythema or heat Skin: Normal temperature, turgor and texture; no rash, ulcers or subcutaneous nodules Psych: Agitation Neuro: alert agitation confused Lines: No CVL / PICC - Constitutional Vitals: Vital Signs Temp Pulse Resp BP Pulse Ox 98.3 F 75 16 121/72 99 08/07/17 07:39 08/07/17 09:57 08/07/17 09:57 08/07/17 07:39 08/07/17 09:58 Temperature -Last 24 Hours Temperature 98.3 F Temperature 98.9 F Temperature 98.1 F - Labs CBC & Chem 7: 08/07/17 05:41 08/07/17 05:41 Labs: Abnormal lab results 08/07/17 08/07/17 08/07/17 Range/Units 05:41 05:41 09:12 RBC 2.65 L (3.65-5.03) M/mm3 Hgb 9.2 L (11.8-15.2) gm/dl Hct 28.1 L (35.5-45.6) % MCV 106 H (84-94) fl MCH 35 H (28-32) pg RDW 24.3 H (13.2-15.2) % Plt Count 65 L (140-440) K/mm3 Moore % (Auto) 11.9 H (0.0-7.3) % PT (12.2-14.9) Sec. INR (0.87-1.13) Creatinine 0.7 L (0.8-1.5) mg/dL Glucose 69 L (75-100) mg/dL Calcium 7.6 L (8.4-10.2) mg/dL Total Bilirubin 7.50 H (0.1-1.2) mg/dL Direct Bilirubin 4.5 H (0-0.2) mg/dL AST 210 H (5-40) units/L ALT 103 H (7-56) units/L Ammonia 93.0 H (25-60) umol/L Albumin 1.7 L (3.9-5) g/dL 08/07/17 Range/Units 09:23 RBC (3.65-5.03) M/mm3 Hgb (11.8-15.2) gm/dl Hct (35.5-45.6) % MCV (84-94) fl MCH (28-32) pg RDW (13.2-15.2) % Plt Count (140-440) K/mm3 Moore % (Auto) (0.0-7.3) % PT 26.2 H (12.2-14.9) Sec. INR 2.23 H (0.87-1.13) Creatinine (0.8-1.5) mg/dL Glucose (75-100) mg/dL Calcium (8.4-10.2) mg/dL Total Bilirubin (0.1-1.2) mg/dL Direct Bilirubin (0-0.2) mg/dL AST (5-40) units/L ALT (7-56) units/L Ammonia (25-60) umol/L Albumin (3.9-5) g/dL
[2017-08-07 12:13] LABS: CD4/CD8 Ratio 0.45 (0.86-5.00)
[2017-08-07] MEDS: THERAGRAN-M Tab PO SCH (13:35)
[2017-08-07] MEDS: FEOSOL PO SCH ×2 (13:35→23:36)
[2017-08-07] MEDS: MUCINEX ER PO SCH ×2 (13:36→23:36)
[2017-08-07] MEDS: MAG-OX PO SCH (13:36)
[2017-08-07] MEDS: PROTONIX PO SCH (13:36)
[2017-08-07] MEDS: LASIX IV SCH (13:36)
[2017-08-07] MEDS: BACTRIM DS PO SCH (14:30)
[2017-08-07] MEDS: CEPHULAC PO SCH ×2 (18:44→23:35)
--- NOTE | 2017-08-07 21:12 | Gastroenterology Progress Note ---
Assessment and Plan 1. AMS - likely from HE. improved today with increased lactulose enema dosing and d/c of ativan. will switch to oral lactulose and add xifaxin. 2. HIV/hepatitis B - management per ID Subjective Date of service: 08/07/17 Principal diagnosis: encephalopathy Interval history: pt more alert today but still not at baseline. responding to simple commands. Objective - Exam Narrative Exam: Gen: awake/answering questions, still with confusion CV: RRR Lungs: CTAB Abd: soft, nt, nd, +bs Ext: in restraints - Constitutional Vitals: Temp Pulse Resp BP Pulse Ox 98.3 F 79 20 117/72 99 08/07/17 16:59 08/07/17 20:26 08/07/17 20:26 08/07/17 16:59 08/07/17 20:10 - Labs CBC & Chem 7: 08/07/17 05:41 08/07/17 05:41 Labs: Laboratory Results - last 24 hr 08/04/17 08/07/17 08/07/17 10:16 00:21 05:41 WBC 6.3 RBC 2.65 L Hgb 9.2 L Hct 28.1 L MCV 106 H MCH 35 H MCHC 33 RDW 24.3 H Plt Count 65 L Lymph % (Auto) 22.4 [place] % (Auto) 11.9 H Eos % (Auto) 1.6 Baso % (Auto) 0.4 Lymph # 1.4 Bladen # 0.7 Eos # 0.1 Baso # 0.0 Seg Neutrophils % 63.7 Seg Neutrophils # 4.0 Abs Lymphs (Manual) 1418 PT INR Sodium Potassium Chloride Carbon Dioxide Anion Gap BUN Creatinine Estimated GFR BUN/Creatinine Ratio Glucose POC Glucose 99 Calcium Phosphorus Magnesium Total Bilirubin Direct Bilirubin Indirect Bilirubin AST ALT Alkaline Phosphatase Ammonia Total Protein Albumin Albumin/Globulin Ratio Lymph Enumerat CD4/CD8 0.45 L % CD3 Cells 80 Absolute CD3 Count 1139 % CD4 Cells 25 L Absolute CD4 Count 352 L % CD8 Cells 55 H Absolute CD8 Count 788 % CD19 Cells 12 Absolute CD19 Count 165 08/07/17 08/07/17 08/07/17 05:41 06:51 09:12 WBC RBC Hgb Hct MCV MCH MCHC RDW Plt Count Lymph % (Auto) [place] % (Auto) Eos % (Auto) Baso % (Auto) Lymph # [place] # Eos # Baso # Seg Neutrophils % Seg Neutrophils # Abs Lymphs (Manual) PT INR Sodium 139 Potassium 3.9 Chloride 101.8 Carbon Dioxide 27 Anion Gap 14 BUN 17 Creatinine 0.7 L Estimated GFR > 60 BUN/Creatinine Ratio 24 Glucose 69 L POC Glucose 77 Calcium 7.6 L Phosphorus 3.40 Magnesium 1.80 Total Bilirubin 7.50 H Direct Bilirubin 4.5 H Indirect Bilirubin 3.0 AST 210 H ALT 103 H Alkaline Phosphatase 102 Ammonia 93.0 H Total Protein 7.5 Albumin 1.7 L Albumin/Globulin Ratio 0.3 Lymph Enumerat CD4/CD8 % CD3 Cells Absolute CD3 Count % CD4 Cells Absolute CD4 Count % CD8 Cells Absolute CD8 Count % CD19 Cells Absolute CD19 Count 08/07/17 09:23 WBC RBC Hgb Hct MCV MCH MCHC RDW Plt Count Lymph % (Auto) [place] % (Auto) Eos % (Auto) Baso % (Auto) Lymph # [place] # Eos # Baso # Seg Neutrophils % Seg Neutrophils # Abs Lymphs (Manual) PT 26.2 H INR 2.23 H Sodium Potassium Chloride Carbon Dioxide Anion Gap BUN Creatinine Estimated GFR BUN/Creatinine Ratio Glucose POC Glucose Calcium Phosphorus Magnesium Total Bilirubin Direct Bilirubin Indirect Bilirubin AST ALT Alkaline Phosphatase Ammonia Total Protein Albumin Albumin/Globulin Ratio Lymph Enumerat CD4/CD8 % CD3 Cells Absolute CD3 Count % CD4 Cells Absolute CD4 Count % CD8 Cells Absolute CD8 Count % CD19 Cells Absolute CD19 Count
[2017-08-07] MEDS: XIFAXAN PO SCH (23:36)
[2017-08-08] MEDS: DUONEB *Not for PRN Use IH SCH ×4 (02:23→20:10)
[2017-08-08] MEDS: CEPHULAC PO SCH ×4 (04:05→18:35)
[2017-08-08] MEDS: CARAFATE PO SCH ×3 (06:54→18:28)
[2017-08-08] MEDS: SODIUM CHLORIDE FLUSH SYRINGE 10 ML IV SCH ×2 (06:57→12:03)
[2017-08-08 07:46] LABS: Basophils % (Auto) 0.7 % (0.0-1.8); Eosinophils # (Auto) 0.2 K/mm3 (0.0-0.4); Eosinophils % (Auto) 3.9 % (0.0-4.3); Hematocrit 26.9 % (35.5-45.6); Hemoglobin 8.8 gm/dl (11.8-15.2); Lymphocytes # (Auto) 1.3 K/mm3 (1.2-5.4); Lymphocytes % (Auto) 30.2 % (13.4-35.0); Mean Corpuscular HGB Conc 33 % (32-34); Mean Corpuscular Hemoglobin 35 pg (28-32); Mean Corpuscular Volume 105 fl (84-94); Monocytes # (Auto) 0.6 K/mm3 (0.0-0.8); Platelet Count 54 K/mm3 (140-440); Red Blood Count 2.56 M/mm3 (3.65-5.03); Red Cell Distribution Width 23.3 % (13.2-15.2)
[2017-08-08 08:13] LABS: Alanine Aminotransferase 96 units/L (7-56); Albumin 1.3 g/dL (3.9-5); BUN/Creatinine Ratio 25; Blood Urea Nitrogen 15 mg/dL (9-20); Calcium 7.2 mg/dL (8.4-10.2); Hemolysis Index 2
--- NOTE | 2017-08-08 08:21 | Progress Note ---
Assessment and Plan Assessment and plan: --Severe Metabolic encephalopathy ; hepatic encephalopathy Significantly improved , patient is more alert and awake tolerating oral nutrition --Hepatic encephalopathy /ammonia levels trending down today 92 Patient is more alert ,continue lactulose and rifaximin --Cirrhosis liver; LFTs trending down, GI following --Coagulopathy; secondary to cirrhosis liver, --Severe thrombocytopenia; secondary to cirrhosis of liver, transfuse platelets as needed --Lt upper extremity acute DVT; patient is coagulopathic with INR of 2.23 patient is not a candidate anticoagulation in view of, INR 2.23 severe coagulopathy, thrombocytopenia, history of GI bleeding, secondary to cirrhosis liver --Severe protein calorie malnutrition; nutrition supplements and supportive care --Acute blood loss anemia secondary to upper GI bleeding; status post 3 PRBC transfusion Patient's hemoglobin 9.2-8.8, Transfuse as needed --Acute upper GI bleeding; Status post EGD x2, 2 large (5-7mm) ulcers in duodenum without visible vessel seen, Moderate erosive gastritis, cold bx of antrum for H pylori Medium hiatal hernia, LA Grade C erosive esophagitis, no new episodes of bleeding --HIV AIDS; ID evaluation noted and appreciated patient will follow with health Department upon discharge , --DVT prophylaxis; SCDs, no pharmacologic anticoagulation Consults and recommendations noted and appreciated I discussed patient's condition with his sister[Jayson Burton] and his nephew 2 days ago. Discussed with Ms. Eubanks[patient's sister] who came to [place] to visit the patient updated patient's progress. History Interval history: Patient seen and examined medical records reviewed Patient is more alert and awake and calm No agitation or aggression responding to simple questions appropriately No new events reported by the nursing staff Vital signs reviewed Hospitalist Physical - Constitutional Vitals: Temp Pulse Resp BP Pulse Ox 98.4 F 87 20 150/84 98 08/07/17 23:32 08/07/17 23:32 08/07/17 23:32 08/07/17 23:32 08/07/17 23:32 General appearance: Present: no acute distress, cachectic, other (more alert and awake) - EENT Eyes: Present: PERRL, EOM intact - Neck Neck: Present: supple, normal ROM - Respiratory Respiratory effort: normal Respiratory: bilateral: diminished, negative: rales, rhonchi, wheezing - Cardiovascular Rhythm: regular Heart Sounds: Present: S1 & S2 - Extremities Extremities: no ischemia, No edema - Abdominal General gastrointestinal: soft, non-tender, non-distended, normal bowel sounds - Integumentary Integumentary: Present: clear, warm - Psychiatric Psychiatric: appropriate mood/affect, cooperative, agitated (at times) - Neurologic Neurologic: CNII-XII intact, moves all extremities Results - Labs CBC & Chem 7: 08/08/17 07:23 08/08/17 07:23 Labs: Laboratory Last Values WBC 4.2 K/mm3 (4.5-11.0) L 08/08/17 07:23 RBC 2.56 M/mm3 (3.65-5.03) L 08/08/17 07:23 Hgb 8.8 gm/dl (11.8-15.2) L 08/08/17 07:23 POC Hgb 6.8 (12-17) L 07/31/17 17:09 Hct 26.9 % (35.5-45.6) L 08/08/17 07:23 POC Hct 20 (38-51) L 07/31/17 17:09 MCV 105 fl (84-94) H 08/08/17 07:23 MCH 35 pg (28-32) H 08/08/17 07:23 MCHC 33 % (32-34) 08/08/17 07:23 RDW 23.3 % (13.2-15.2) H 08/08/17 07:23 Plt Count 54 K/mm3 (140-440) L 08/08/17 07:23 Lymph % (Auto) 30.2 % (13.4-35.0) 08/08/17 07:23 [place] % (Auto) 15.0 % (0.0-7.3) H 08/08/17 07:23 Eos % (Auto) 3.9 % (0.0-4.3) 08/08/17 07:23 Baso % (Auto) 0.7 % (0.0-1.8) 08/08/17 07:23 Lymph # 1.3 K/mm3 (1.2-5.4) 08/08/17 07:23 [place] # 0.6 K/mm3 (0.0-0.8) 08/08/17 07:23 Eos # 0.2 K/mm3 (0.0-0.4) 08/08/17 07:23 Baso # 0.0 K/mm3 (0.0-0.1) 08/08/17 07:23 Add Manual Diff Complete 08/06/17 05:59 Total Counted 100 08/06/17 05:59 Seg Neutrophils % 50.2 % (40.0-70.0) 08/08/17 07:23 Seg Neuts % (Manual) 90.0 % (40.0-70.0) H 08/06/17 05:59 Band Neutrophils % 0 % 08/06/17 05:59 Lymphocytes % (Manual) 4.0 % (13.4-35.0) L 08/06/17 05:59 Reactive Lymphs % (Man) 1.0 % 08/06/17 05:59 Monocytes % (Manual) 3.0 % (0.0-7.3) 08/06/17 05:59 Eosinophils % (Manual) 2.0 % (0.0-4.3) 08/06/17 05:59 Basophils % (Manual) 0 % (0.0-1.8) 08/06/17 05:59 Metamyelocytes % 0 % 08/06/17 05:59 Myelocytes % 0 % 08/06/17 05:59 Promyelocytes % 0 % 08/06/17 05:59 Blast Cells % 0 % 08/06/17 05:59 Nucleated RBC % 1.0 % (0.0-0.9) H 08/06/17 05:59 Seg Neutrophils # 2.1 K/mm3 (1.8-7.7) 08/08/17 07:23 Seg Neutrophils # Man 4.5 K/mm3 (1.8-7.7) 08/06/17 05:59 Band Neutrophils # 0.0 K/mm3 08/06/17 05:59 Abs Lymphs (Manual) 1418 cells/uL (850-3900) 08/04/17 10:16 Lymphocytes # (Manual) 0.2 K/mm3 (1.2-5.4) L 08/06/17 05:59 Abs React Lymphs (Man) 0.1 K/mm3 08/06/17 05:59 Monocytes # (Manual) 0.2 K/mm3 (0.0-0.8) 08/06/17 05:59 Eosinophils # (Manual) 0.1 K/mm3 (0.0-0.4) 08/06/17 05:59 Basophils # (Manual) 0.0 K/mm3 (0.0-0.1) 08/06/17 05:59 Metamyelocytes # 0.0 K/mm3 08/06/17 05:59 Myelocytes # 0.0 K/mm3 08/06/17 05:59 Promyelocytes # 0.0 K/mm3 08/06/17 05:59 Blast Cells # 0.0 K/mm3 08/06/17 05:59 WBC Morphology Not Reportable 08/06/17 05:59 Hypersegmented Neuts Not Reportable 08/06/17 05:59 Hyposegmented Neuts Not Reportable 08/06/17 05:59 Hypogranular Neuts Not Reportable 08/06/17 05:59 Smudge Cells Not Reportable 08/06/17 05:59 Toxic Granulation Not Reportable 08/06/17 05:59 Toxic Vacuolation Not Reportable 08/06/17 05:59 Dohle Bodies Not Reportable 08/06/17 05:59 Pelger-Huet Anomaly Not Reportable 08/06/17 05:59 [place] Rods Not Reportable 08/06/17 05:59 Platelet Estimate Cons 08/06/17 05:59 Clumped Platelets Not Reportable 08/06/17 05:59 Plt Clumps, EDTA Not Reportable 08/06/17 05:59 Large Platelets Not Reportable 08/06/17 05:59 Giant Platelets Not Reportable 08/06/17 05:59 Platelet Satelliting Not Reportable 08/06/17 05:59 Plt Morphology Comment Not Reportable 08/06/17 05:59 RBC Morphology Not Reportable 08/06/17 05:59 Dimorphic RBCs Not Reportable 08/06/17 05:59 Polychromasia Few 08/06/17 05:59 Hypochromasia Not Reportable 08/06/17 05:59 Poikilocytosis Not Reportable 08/06/17 05:59 Anisocytosis 2+ 08/06/17 05:59 Microcytosis Not Reportable 08/06/17 05:59 Macrocytosis Not Reportable 08/06/17 05:59 Spherocytes Not Reportable 08/06/17 05:59 Pappenheimer Bodies Not Reportable 08/06/17 05:59 Sickle Cells Not Reportable 08/06/17 05:59 Target Cells Few 08/06/17 05:59 Tear Drop Cells Not Reportable 08/06/17 05:59 Ovalocytes Not Reportable 08/06/17 05:59 Helmet Cells Not Reportable 08/06/17 05:59 [place] Bodies Not Reportable 08/06/17 05:59 [place] Rings Not Reportable 08/06/17 05:59 [place] Cells Not Reportable 08/06/17 05:59 Bite Cells Not Reportable 08/06/17 05:59 Crenated Cell Not Reportable 08/06/17 05:59 Elliptocytes Not Reportable 08/06/17 05:59 Acanthocytes (Spur) Not Reportable 08/06/17 05:59 Rouleaux Not Reportable 08/06/17 05:59 Hemoglobin C Crystals Not Reportable 08/06/17 05:59 Schistocytes Not Reportable 08/06/17 05:59 Malaria parasites Not Reportable 08/06/17 05:59 Roney Bodies Not Reportable 08/06/17 05:59 Hem Pathologist Commnt No 08/06/17 05:59 PT 26.2 Sec. (12.2-14.9) H 08/07/17 09:23 INR 2.23 (0.87-1.13) H 08/07/17 09:23 APTT 42.2 Sec. (24.2-36.6) H 07/31/17 10:50 POC Sodium 147 mmol/L (138-146) H 07/31/17 17:09 POC Potassium 5.0 (3.5-4.9) H 07/31/17 17:09 POC Chloride 103 (98-109) 07/31/17 17:09 Sodium 138 mmol/L (137-145) 08/08/17 07:23 Potassium 3.5 mmol/L (3.6-5.0) L 08/08/17 07:23 Chloride 101.1 mmol/L (98-107) 08/08/17 07:23 Carbon Dioxide 29 mmol/L (22-30) 08/08/17 07:23 Anion Gap 11 mmol/L 08/08/17 07:23 POC BUN 24 mg/dl (8-26) 07/31/17 17:09 BUN 15 mg/dL (9-20) 08/08/17 07:23 Creatinine 0.6 mg/dL (0.8-1.5) L 08/08/17 07:23 Estimated GFR > 60 ml/min 08/08/17 07:23 BUN/Creatinine Ratio 25 % 08/08/17 07:23 Glucose 94 mg/dL (75-100) 08/08/17 07:23 POC Glucose 83 (70-105) 08/08/17 06:11 Lactic Acid 3.70 mmol/L (0.7-2.0) H* 07/31/17 10:50 Calcium 7.2 mg/dL (8.4-10.2) L 08/08/17 07:23 Phosphorus 3.40 mg/dL (2.5-4.5) 08/07/17 05:41 Magnesium 1.50 mg/dL (1.7-2.3) L 08/08/17 07:23 Total Bilirubin 7.20 mg/dL (0.1-1.2) H 08/08/17 07:23 Direct Bilirubin 4.5 mg/dL (0-0.2) H 08/07/17 05:41 Indirect Bilirubin 3.0 mg/dL 08/07/17 05:41 AST 183 units/L (5-40) H 08/08/17 07:23 ALT 96 units/L (7-56) H 08/08/17 07:23 Alkaline Phosphatase 94 units/L (35-129) 08/08/17 07:23 Ammonia 92.0 umol/L (25-60) H 08/08/17 07:23 Total Protein 6.9 g/dL (6.3-8.2) 08/08/17 07:23 Albumin 1.3 g/dL (3.9-5) L 08/08/17 07:23 Albumin/Globulin Ratio 0.2 % 08/08/17 07:23 Lipase 28 units/L (13-60) 07/31/17 10:50 Urine Opiates Screen Presumptive negative 07/31/17 16:54 Urine Methadone Screen Presumptive negative 07/31/17 16:54 Ur Barbiturates Screen Presumptive negative 07/31/17 16:54 Ur Phencyclidine Scrn Presumptive negative 07/31/17 16:54 Ur Amphetamines Screen Presumptive negative 07/31/17 16:54 U Benzodiazepines Scrn Presumptive negative 07/31/17 16:54 Urine Cocaine Screen Presumptive negative 07/31/17 16:54 U Marijuana (THC) Screen Presumptive negative 07/31/17 16:54 Drugs of Abuse Note Disclamer 07/31/17 16:54 Plasma/Serum Alcohol < 0.01 % (0-0.07) 07/31/17 12:56 Lymph Enumerat CD4/CD8 0.45 (0.86-5.00) L 08/04/17 10:16 % CD3 Cells 80 % (57-85) 08/04/17 10:16 Absolute CD3 Count 1139 cells/uL (840-3060) 08/04/17 10:16 % CD4 Cells 25 % (30-61) L 08/04/17 10:16 Absolute CD4 Count 352 cells/uL (490-1740) L 08/04/17 10:16 % CD8 Cells 55 % (12-42) H 08/04/17 10:16 Absolute CD8 Count 788 cells/uL (180-1170) 08/04/17 10:16 % CD19 Cells 12 % (6-29) 08/04/17 10:16 Absolute CD19 Count 165 cells/uL (110-660) 08/04/17 10:16 Hep Bs Antigen Reactive (Negative) 08/01/17 04:01 Hep B Core Total Ab Reactive (Nonreactive) H 08/01/17 04:01 Hepatitis C Antibody Non-reactive (NonReactive) 08/01/17 04:01 Blood Type O POSITIVE 07/31/17 10:50 Antibody Screen Negative 07/31/17 10:50 Crossmatch See Detail 07/31/17 10:50
--- NOTE | 2017-08-08 09:41 | Progress Note ---
Assessment and Plan Assessment: 1) Acute encephalopathy: Likely due to hepatic encephalopathy. Doubt opportunistic brain infection pt has no fever. Improving. Unclear if he stopped abruptly his ART causing reactivation of HBV. 2) Acute GI bleed: better 3) Coagulopathy: better 4) History of AIDS (unknown CD4/VL/Medication Noncompliance) -BY8=620 -per pt he stopped taking his meds a month ago 5) History of TB S/P Full course antibiotic therapy 6) HBV / Cirrhosis 7) COPD 8) Elevated LFTs Plan: -follow-up VL -follow-up HBV-DNA viral load -follow-up cryptococcal serum antigen -continue bactrim DS 1 tab po qday for prophylaxis -hepatic encephalopathy per GI Thank you for your consultation, will follow up with you. Barbara Solorzano MD Infectious Diseases Specialist [facility] [id number] [phone] Subjective Date of service: 08/08/17 Principal diagnosis: encephalopathy Interval history: More alert and calmed down. Still confused, wants to go home. No fever. talking Microbiology: none Current Antimicrobials: bactrim DS 1 tab qd Previous Antimicrobials: Objective - Exam Narrative Exam: General appearance: Alert in NAD on restraints Eyes: anicteric sclerae, moist conjunctivae; no lid-lag; PERRLA HENT: Atraumatic; oropharynx unable to eval Neck: Trachea midline; supple, no thyromegaly or lymphadenopathy Lungs: miguelina rhonchi CV: RRR, no murmurs Abdomen: Soft, non-tender; no masses or hepatosplenomegaly Extremities: Left arm marked edema and no erythema or heat Skin: Normal temperature, turgor and texture; no rash, ulcers or subcutaneous nodules Psych: Agitation Neuro: alert agitation confused Lines: No CVL / PICC - Constitutional Vitals: Vital Signs Temp Pulse Resp BP Pulse Ox 98.4 F 78 19 150/84 99 08/07/17 23:32 08/08/17 08:47 08/08/17 08:47 08/07/17 23:32 08/08/17 08:49 Temperature -Last 24 Hours Temperature 98.4 F Temperature 98.3 F - Labs CBC & Chem 7: 08/08/17 07:23 08/08/17 07:23 Labs: Abnormal lab results 04/08/07/17 08/07/17 Range/Units 10:16 09:12 09:23 WBC (4.5-11.0) K/mm3 RBC (3.65-5.03) M/mm3 Hgb (11.8-15.2) gm/dl Hct (35.5-45.6) % MCV (84-94) fl MCH (28-32) pg RDW (13.2-15.2) % Plt Count (140-440) K/mm3 [place] % (Auto) (0.0-7.3) % PT 26.2 H (12.2-14.9) Sec. INR 2.23 H (0.87-1.13) Potassium (3.6-5.0) mmol/L Creatinine (0.8-1.5) mg/dL POC Glucose (70-105) Calcium (8.4-10.2) mg/dL Magnesium (1.7-2.3) mg/dL Total Bilirubin (0.1-1.2) mg/dL AST (5-40) units/L ALT (7-56) units/L Ammonia 93.0 H (25-60) umol/L Albumin (3.9-5) g/dL Lymph Enumerat CD4/CD8 0.45 L (0.86-5.00) % CD4 Cells 25 L (30-61) % Absolute CD4 Count 352 L (490-1740) cells/uL % CD8 Cells 55 H (12-42) % 08/07/17 08/08/17 08/08/17 Range/Units 21:44 07:23 07:23 WBC 4.2 L (4.5-11.0) K/mm3 RBC 2.56 L (3.65-5.03) M/mm3 Hgb 8.8 L (11.8-15.2) gm/dl Hct 26.9 L (35.5-45.6) % MCV 105 H (84-94) fl MCH 35 H (28-32) pg RDW 23.3 H (13.2-15.2) % Plt Count 54 L (140-440) K/mm3 [place] % (Auto) 15.0 H (0.0-7.3) % PT (12.2-14.9) Sec. INR (0.87-1.13) Potassium 3.5 L (3.6-5.0) mmol/L Creatinine 0.6 L (0.8-1.5) mg/dL POC Glucose 118 H (70-105) Calcium 7.2 L (8.4-10.2) mg/dL Magnesium 1.50 L (1.7-2.3) mg/dL Total Bilirubin 7.20 H (0.1-1.2) mg/dL AST 183 H (5-40) units/L ALT 96 H (7-56) units/L Ammonia (25-60) umol/L Albumin 1.3 L (3.9-5) g/dL Lymph Enumerat CD4/CD8 (0.86-5.00) % CD4 Cells (30-61) % Absolute CD4 Count (490-1740) cells/uL % CD8 Cells (12-42) % 08/08/17 Range/Units 07:23 WBC (4.5-11.0) K/mm3 RBC (3.65-5.03) M/mm3 Hgb (11.8-15.2) gm/dl Hct (35.5-45.6) % MCV (84-94) fl MCH (28-32) pg RDW (13.2-15.2) % Plt Count (140-440) K/mm3 [place] % (Auto) (0.0-7.3) % PT (12.2-14.9) Sec. INR (0.87-1.13) Potassium (3.6-5.0) mmol/L Creatinine (0.8-1.5) mg/dL POC Glucose (70-105) Calcium (8.4-10.2) mg/dL Magnesium (1.7-2.3) mg/dL Total Bilirubin (0.1-1.2) mg/dL AST (5-40) units/L ALT (7-56) units/L Ammonia 92.0 H (25-60) umol/L Albumin (3.9-5) g/dL Lymph Enumerat CD4/CD8 (0.86-5.00) % CD4 Cells (30-61) % Absolute CD4 Count (490-1740) cells/uL % CD8 Cells (12-42) %
--- NOTE | 2017-08-08 10:36 | Gastroenterology Progress Note ---
<KRISTEN FLORES - Last Filed: 08/08/17 10:40> Assessment and Plan 1.cirrhosis 2.hepatic encedphalopathy -etiology 2/2 hepatitis B -mentation improving- currently tolerating oral nutrition -clinically pt w/o c/o abd pain or N/V -continue current medications (lactulose, xifaxan) -continue to trend labs and supportive care 3.duodenal ulcer with hemorrhage -EGD 07/31- shoed large ulcers but no active bleeding and no varices -no active signs of bleeding -continue to monitor H/H; transfuse as needed -continue PPI, carafate, and MVI 4.HIV/hepatitis B- management per ID Subjective Date of service: 08/08/17 Principal diagnosis: encephalopathy Interval history: Patient resting in bed w/o acute distress. More alert today. Denies abd pain, N/ V, or signs of bleeding. Objective - Constitutional Vitals: Temp Pulse Resp BP Pulse Ox 98.4 F 78 19 150/84 99 08/07/17 23:32 08/08/17 08:47 08/08/17 08:47 08/07/17 23:32 08/08/17 08:49 General appearance: no acute distress - Respiratory Respiratory: bilateral: diminished - Cardiovascular Rhythm: regular Heart Sounds: Present: S1 & S2 - Gastrointestinal General gastrointestinal: Present: soft, non-tender, non-distended, normal bowel sounds - Labs CBC & Chem 7: 08/08/17 07:23 08/08/17 07:23 Labs: Laboratory Results - last 24 hr 08/04/17 08/07/17 08/08/17 10:16 21:44 06:11 WBC RBC Hgb Hct MCV MCH MCHC RDW Plt Count Lymph % (Auto) [place] % (Auto) Eos % (Auto) Baso % (Auto) Lymph # [place] # Eos # Baso # Seg Neutrophils % Seg Neutrophils # Abs Lymphs (Manual) 1418 Sodium Potassium Chloride Carbon Dioxide Anion Gap BUN Creatinine Estimated GFR BUN/Creatinine Ratio Glucose POC Glucose 118 H 83 Calcium Magnesium Total Bilirubin AST ALT Alkaline Phosphatase Ammonia Total Protein Albumin Albumin/Globulin Ratio Lymph Enumerat CD4/CD8 0.45 L % CD3 Cells 80 Absolute CD3 Count 1139 % CD4 Cells 25 L Absolute CD4 Count 352 L % CD8 Cells 55 H Absolute CD8 Count 788 % CD19 Cells 12 Absolute CD19 Count 165 08/08/17 08/08/17 08/08/17 07:23 07:23 07:23 WBC 4.2 L RBC 2.56 L Hgb 8.8 L Hct 26.9 L MCV 105 H MCH 35 H MCHC 33 RDW 23.3 H Plt Count 54 L Lymph % (Auto) 30.2 [place] % (Auto) 15.0 H Eos % (Auto) 3.9 Baso % (Auto) 0.7 Lymph # 1.3 [place] # 0.6 Eos # 0.2 Baso # 0.0 Seg Neutrophils % 50.2 Seg Neutrophils # 2.1 Abs Lymphs (Manual) Sodium 138 Potassium 3.5 L Chloride 101.1 Carbon Dioxide 29 Anion Gap 11 BUN 15 Creatinine 0.6 L Estimated GFR > 60 BUN/Creatinine Ratio 25 Glucose 94 POC Glucose Calcium 7.2 L Magnesium 1.50 L Total Bilirubin 7.20 H AST 183 H ALT 96 H Alkaline Phosphatase 94 Ammonia 92.0 H Total Protein 6.9 Albumin 1.3 L Albumin/Globulin Ratio 0.2 Lymph Enumerat CD4/CD8 % CD3 Cells Absolute CD3 Count % CD4 Cells Absolute CD4 Count % CD8 Cells Absolute CD8 Count % CD19 Cells Absolute CD19 Count <LISY JACOB - Last Filed: 08/08/17 21:42> Assessment and Plan pt seen and examined. agree with note above Objective - Constitutional Vitals: Temp Pulse Resp BP Pulse Ox 98.2 F 90 18 125/71 100 08/08/17 19:15 08/08/17 20:10 08/08/17 20:10 08/08/17 19:15 08/08/17 19:15 - Labs CBC & Chem 7: 08/08/17 07:23 08/08/17 07:23 Labs: Laboratory Results - last 24 hr 08/06/17 08/07/17 08/08/17 13:52 21:44 06:11 WBC RBC Hgb Hct MCV MCH MCHC RDW Plt Count Lymph % (Auto) [place] % (Auto) Eos % (Auto) Baso % (Auto) Lymph # [place] # Eos # Baso # Seg Neutrophils % Seg Neutrophils # Abs Lymphs (Manual) 983 Sodium Potassium Chloride Carbon Dioxide Anion Gap BUN Creatinine Estimated GFR BUN/Creatinine Ratio Glucose POC Glucose 118 H 83 Calcium Magnesium Total Bilirubin AST ALT Alkaline Phosphatase Ammonia Total Protein Albumin Albumin/Globulin Ratio Lymph Enumerat CD4/CD8 0.51 L % CD3 Cells 77 Absolute CD3 Count 757 L % CD4 Cells 25 L Absolute CD4 Count 250 L % CD8 Cells 50 H Absolute CD8 Count 494 % CD19 Cells 20 Absolute CD19 Count 191 08/08/17 08/08/17 08/08/17 07:23 07:23 07:23 WBC 4.2 L RBC 2.56 L Hgb 8.8 L Hct 26.9 L MCV 105 H MCH 35 H MCHC 33 RDW 23.3 H Plt Count 54 L Lymph % (Auto) 30.2 [place] % (Auto) 15.0 H Eos % (Auto) 3.9 Baso % (Auto) 0.7 Lymph # 1.3 [place] # 0.6 Eos # 0.2 Baso # 0.0 Seg Neutrophils % 50.2 Seg Neutrophils # 2.1 Abs Lymphs (Manual) Sodium 138 Potassium 3.5 L Chloride 101.1 Carbon Dioxide 29 Anion Gap 11 BUN 15 Creatinine 0.6 L Estimated GFR > 60 BUN/Creatinine Ratio 25 Glucose 94 POC Glucose Calcium 7.2 L Magnesium 1.50 L Total Bilirubin 7.20 H AST 183 H ALT 96 H Alkaline Phosphatase 94 Ammonia 92.0 H Total Protein 6.9 Albumin 1.3 L Albumin/Globulin Ratio 0.2 Lymph Enumerat CD4/CD8 % CD3 Cells Absolute CD3 Count % CD4 Cells Absolute CD4 Count % CD8 Cells Absolute CD8 Count % CD19 Cells Absolute CD19 Count 08/08/17 08/08/17 12:27 15:37 WBC RBC Hgb Hct MCV MCH MCHC RDW Plt Count Lymph % (Auto) [place] % (Auto) Eos % (Auto) Baso % (Auto) Lymph # [place] # Eos # Baso # Seg Neutrophils % Seg Neutrophils # Abs Lymphs (Manual) Sodium Potassium Chloride Carbon Dioxide Anion Gap BUN Creatinine Estimated GFR BUN/Creatinine Ratio Glucose POC Glucose 90 68 L Calcium Magnesium Total Bilirubin AST ALT Alkaline Phosphatase Ammonia Total Protein Albumin Albumin/Globulin Ratio Lymph Enumerat CD4/CD8 % CD3 Cells Absolute CD3 Count % CD4 Cells Absolute CD4 Count % CD8 Cells Absolute CD8 Count % CD19 Cells Absolute CD19 Count
--- NOTE | 2017-08-08 11:33 | Vascular Lab Report ---
LEFT UPPER EXTREMITY VENOUS DUPLEX: REASON FOR EXAM: Pain and swelling of the left upper extremity COMMENTS ON THE LEFT: Acute venous thrombosis is seen in the radial veins proximally in the forearm. Superficial venous thrombosis is seen in the cephalic vein extending from the shoulder down to the mid forearm. The remaining veins visualized are freely compressible without evidence of internal echogenicity. Spontaneous and phasic flow is present to proximally. COMMENTS ON THE RIGHT: A limited study of the jugular and subclavian veins shows no evidence of thrombus. IMPRESSION: Acute deep venous thrombosis of the radial veins in the proximal left forearm. Acute superficial venous thrombosis of the cephalic vein throughout the left upper extremity.
[2017-08-08] MEDS: BACTRIM DS PO SCH (12:01)
[2017-08-08] MEDS: LASIX IV SCH (12:01)
[2017-08-08] MEDS: MUCINEX ER PO SCH ×2 (12:02→22:58)
[2017-08-08] MEDS: THERAGRAN-M Tab PO SCH (12:02)
[2017-08-08] MEDS: XIFAXAN PO SCH ×2 (12:02→22:58)
[2017-08-08] MEDS: PROTONIX PO SCH (12:02)
[2017-08-08] MEDS: FEOSOL PO SCH ×2 (12:02→22:58)
[2017-08-08] MEDS: MAG-OX PO SCH (12:02)
--- NOTE | 2017-08-08 20:34 | Cat Scan Report ---
FINAL REPORT PROCEDURE: CT head without contrast. TECHNIQUE: Computerized tomography of the head was performed without contrast material. HISTORY: Hepatic encephalopathy, HIV. COMPARISON: No prior studies are available for comparison. FINDINGS: The ventricles are normal in size. The [place] matter and white matter appear normal. There are no mass lesions. There is no intracranial hemorrhage. The calvarium appears intact. The mastoid air cells and paranasal sinuses are clear. IMPRESSION: Normal study.
[2017-08-08 20:38] LABS: CD4/CD8 Ratio 0.51 (0.86-5.00)
[2017-08-08 21:51] LABS: HIV-1 RNA QN PCR 4.67 Log cps/mL
[2017-08-08] MEDS: BENADRYL IV PRN (22:59)
[2017-08-09] MEDS: CARAFATE PO SCH ×5 (02:25→23:40)
[2017-08-09] MEDS: CEPHULAC PO SCH ×5 (02:26→23:40)
[2017-08-09] MEDS: DUONEB *Not for PRN Use IH SCH ×4 (02:41→21:24)
[2017-08-09 06:18] LABS: Hematocrit 25.2 % (35.5-45.6); Hemoglobin 8.3 gm/dl (11.8-15.2); Mean Corpuscular HGB Conc 33 % (32-34); Mean Corpuscular Hemoglobin 34 pg (28-32); Mean Corpuscular Volume 104 fl (84-94); Red Blood Count 2.42 M/mm3 (3.65-5.03)
[2017-08-09 06:19] LABS: Red Cell Distribution Width 22.5 % (13.2-15.2)
[2017-08-09 06:20] LABS: Platelet Count 48 K/mm3 (140-440)
[2017-08-09 06:26] LABS: INR 2.37 (0.87-1.13)
[2017-08-09 06:41] LABS: Alanine Aminotransferase 91 units/L (7-56); Albumin 1.3 g/dL (3.9-5); BUN/Creatinine Ratio 22; Blood Urea Nitrogen 13 mg/dL (9-20); Calcium 6.8 mg/dL (8.4-10.2); Hemolysis Index 29
[2017-08-09 07:42] LABS: RBC Morphology Normal; Total Cells Counted 100
--- NOTE | 2017-08-09 09:56 | Gastroenterology Progress Note ---
Assessment and Plan 1. Encephalopathy - improving slowly. cont lactulose po (hold dose when he achieves 3 bm's daily). cont xifaxin bid. 2. Cirrhosis - decompensated cirrhosis. not a tx candidate given non-compliance 3. Jaundice - trend labs; will obtain RUQ US 4. Hepatitis B - not interested in treatment 5. HIV - defer to ID. ideally would have this and hep b treated together but he 's refusing this Subjective Date of service: 08/09/17 Principal diagnosis: encephalopathy Interval history: pt seen and examined. more awake/alert today. tolerating po and meds po. multiple bm's per day. no gi bleeding Objective - Exam Narrative Exam: Gen: chronically ill appearing male, awake Eyes: + icterus CV: RRR Lungs: CTAB Abd: soft, nt, nd, +bs Ext: no edema - Constitutional Vitals: Temp Pulse Resp BP Pulse Ox 98.9 F 79 18 118/69 93 08/09/17 08:20 08/09/17 08:31 08/09/17 08:31 08/09/17 08:15 08/09/17 08:20 - Labs CBC & Chem 7: 08/09/17 05:59 08/09/17 05:59 Labs: Laboratory Results - last 24 hr 08/01/17 08/06/17 08/06/17 04:01 13:52 13:52 WBC RBC Hgb Hct MCV MCH MCHC RDW Plt Count [place] % (Auto) Add Manual Diff Total Counted Seg Neuts % (Manual) Band Neutrophils % Lymphocytes % (Manual) Reactive Lymphs % (Man) Monocytes % (Manual) Eosinophils % (Manual) Basophils % (Manual) Metamyelocytes % Myelocytes % Promyelocytes % Blast Cells % Nucleated RBC % Seg Neutrophils # Man Band Neutrophils # Abs Lymphs (Manual) 983 Lymphocytes # (Manual) Abs React Lymphs (Man) Monocytes # (Manual) Eosinophils # (Manual) Basophils # (Manual) Metamyelocytes # Myelocytes # Promyelocytes # Blast Cells # WBC Morphology Hypersegmented Neuts Hyposegmented Neuts Hypogranular Neuts Smudge Cells Toxic Granulation Toxic Vacuolation Dohle Bodies Pelger-Huet Anomaly [place] Rods Platelet Estimate Clumped Platelets Plt Clumps, EDTA Large Platelets Giant Platelets Platelet Satelliting Plt Morphology Comment RBC Morphology Dimorphic RBCs Polychromasia Hypochromasia Poikilocytosis Anisocytosis Microcytosis Macrocytosis Spherocytes Pappenheimer Bodies Sickle Cells Target Cells Tear Drop Cells Ovalocytes Helmet Cells [place] Bodies [place] Rings Piter Cells Bite Cells Crenated Cell Elliptocytes Acanthocytes (Spur) Rouleaux Hemoglobin C Crystals Schistocytes Malaria parasites Roney Bodies Hem Pathologist Commnt PT INR Sodium Potassium Chloride Carbon Dioxide Anion Gap BUN Creatinine Estimated GFR BUN/Creatinine Ratio Glucose POC Glucose Calcium Total Bilirubin AST ALT Alkaline Phosphatase Ammonia Total Protein Albumin Albumin/Globulin Ratio Tumor Marker AFP See scanned result Lymph Enumerat CD4/CD8 0.51 L % CD3 Cells 77 Absolute CD3 Count 757 L % CD4 Cells 25 L Absolute CD4 Count 250 L % CD8 Cells 50 H Absolute CD8 Count 494 % CD19 Cells 20 Absolute CD19 Count 191 HIV-1 RNA PCR copies/ml 58667 H HIV-1 RNA (PCR) log 4.67 H 08/08/17 08/08/17 08/08/17 12:27 15:37 22:00 WBC RBC Hgb Hct MCV MCH MCHC RDW Plt Count [place] % (Auto) Add Manual Diff Total Counted Seg Neuts % (Manual) Band Neutrophils % Lymphocytes % (Manual) Reactive Lymphs % (Man) Monocytes % (Manual) Eosinophils % (Manual) Basophils % (Manual) Metamyelocytes % Myelocytes % Promyelocytes % Blast Cells % Nucleated RBC % Seg Neutrophils # Man Band Neutrophils # Abs Lymphs (Manual) Lymphocytes # (Manual) Abs React Lymphs (Man) Monocytes # (Manual) Eosinophils # (Manual) Basophils # (Manual) Metamyelocytes # Myelocytes # Promyelocytes # Blast Cells # WBC Morphology Hypersegmented Neuts Hyposegmented Neuts Hypogranular Neuts Smudge Cells Toxic Granulation Toxic Vacuolation Dohle Bodies Pelger-Huet Anomaly [place] Rods Platelet Estimate Clumped Platelets Plt Clumps, EDTA Large Platelets Giant Platelets Platelet Satelliting Plt Morphology Comment RBC Morphology Dimorphic RBCs Polychromasia Hypochromasia Poikilocytosis Anisocytosis Microcytosis Macrocytosis Spherocytes Pappenheimer Bodies Sickle Cells Target Cells Tear Drop Cells Ovalocytes Helmet Cells [place] Bodies [place] Rings Piter Cells Bite Cells Crenated Cell Elliptocytes Acanthocytes (Spur) Rouleaux Hemoglobin C Crystals Schistocytes Malaria parasites Roney Bodies Hem Pathologist Commnt PT INR Sodium Potassium Chloride Carbon Dioxide Anion Gap BUN Creatinine Estimated GFR BUN/Creatinine Ratio Glucose POC Glucose 90 68 L 115 H Calcium Total Bilirubin AST ALT Alkaline Phosphatase Ammonia Total Protein Albumin Albumin/Globulin Ratio Tumor Marker AFP Lymph Enumerat CD4/CD8 % CD3 Cells Absolute CD3 Count % CD4 Cells Absolute CD4 Count % CD8 Cells Absolute CD8 Count % CD19 Cells Absolute CD19 Count HIV-1 RNA PCR copies/ml HIV-1 RNA (PCR) log 08/09/17 08/09/17 08/09/17 05:42 05:59 05:59 WBC 3.5 L RBC 2.42 L Hgb 8.3 L Hct 25.2 L MCV 104 H MCH 34 H MCHC 33 RDW 22.5 H Plt Count 48 L Mck[place] % (Auto) Edge Setter Add Manual Diff Complete Total Counted 100 Seg Neuts % (Manual) 64.0 Band Neutrophils % 0 Lymphocytes % (Manual) 18.0 Reactive Lymphs % (Man) 0 Monocytes % (Manual) 14.0 H Eosinophils % (Manual) 3.0 Basophils % (Manual) 1.0 Metamyelocytes % 0 Myelocytes % 0 Promyelocytes % 0 Blast Cells % 0 Nucleated RBC % 3.0 H Seg Neutrophils # Man 2.2 Band Neutrophils # 0.0 Abs Lymphs (Manual) Lymphocytes # (Manual) 0.6 L Abs React Lymphs (Man) 0.0 Monocytes # (Manual) 0.5 Eosinophils # (Manual) 0.1 Basophils # (Manual) 0.0 Metamyelocytes # 0.0 Myelocytes # 0.0 Promyelocytes # 0.0 Blast Cells # 0.0 WBC Morphology Not Reportable Hypersegmented Neuts Not Reportable Hyposegmented Neuts Not Reportable Hypogranular Neuts Not Reportable Smudge Cells Not Reportable Toxic Granulation Not Reportable Toxic Vacuolation Not Reportable Dohle Bodies Not Reportable Pelger-Huet Anomaly Not Reportable [place] Rods Not Reportable Platelet Estimate Not Reportable Clumped Platelets Not Reportable Plt Clumps, EDTA Not Reportable Large Platelets Not Reportable Giant Platelets Not Reportable Platelet Satelliting Not Reportable Plt Morphology Comment Not Reportable RBC Morphology Normal Dimorphic RBCs Not Reportable Polychromasia Not Reportable Hypochromasia Not Reportable Poikilocytosis Not Reportable Anisocytosis Not Reportable Microcytosis Not Reportable Macrocytosis Not Reportable Spherocytes Not Reportable Pappenheimer Bodies Not Reportable Sickle Cells Not Reportable Target Cells Not Reportable Tear Drop Cells Not Reportable Ovalocytes Not Reportable Helmet Cells Not Reportable [place] Bodies Not Reportable [place] Rings Not Reportable [place] Cells Not Reportable Bite Cells Not Reportable Crenated Cell Not Reportable Elliptocytes Not Reportable Acanthocytes (Spur) Not Reportable Rouleaux Not Reportable Hemoglobin C Crystals Not Reportable Schistocytes Not Reportable Malaria parasites Not Reportable Roney Bodies Not Reportable Hem Pathologist Commnt No PT 27.5 H INR 2.37 H Sodium Potassium Chloride Carbon Dioxide Anion Gap BUN Creatinine Estimated GFR BUN/Creatinine Ratio Glucose POC Glucose 122 H Calcium Total Bilirubin AST ALT Alkaline Phosphatase Ammonia Total Protein Albumin Albumin/Globulin Ratio Tumor Marker AFP Lymph Enumerat CD4/CD8 % CD3 Cells Absolute CD3 Count % CD4 Cells Absolute CD4 Count % CD8 Cells Absolute CD8 Count % CD19 Cells Absolute CD19 Count HIV-1 RNA PCR copies/ml HIV-1 RNA (PCR) log 08/09/17 08/09/17 05:59 05:59 WBC RBC Hgb Hct MCV MCH MCHC RDW Plt Count [place] % (Auto) Add Manual Diff Total Counted Seg Neuts % (Manual) Band Neutrophils % Lymphocytes % (Manual) Reactive Lymphs % (Man) Monocytes % (Manual) Eosinophils % (Manual) Basophils % (Manual) Metamyelocytes % Myelocytes % Promyelocytes % Blast Cells % Nucleated RBC % Seg Neutrophils # Man Band Neutrophils # Abs Lymphs (Manual) Lymphocytes # (Manual) Abs React Lymphs (Man) Monocytes # (Manual) Eosinophils # (Manual) Basophils # (Manual) Metamyelocytes # Myelocytes # Promyelocytes # Blast Cells # WBC Morphology Hypersegmented Neuts Hyposegmented Neuts Hypogranular Neuts Smudge Cells Toxic Granulation Toxic Vacuolation Dohle Bodies Pelger-Huet Anomaly [place] Rods Platelet Estimate Clumped Platelets Plt Clumps, EDTA Large Platelets Giant Platelets Platelet Satelliting Plt Morphology Comment RBC Morphology Dimorphic RBCs Polychromasia Hypochromasia Poikilocytosis Anisocytosis Microcytosis Macrocytosis Spherocytes Pappenheimer Bodies Sickle Cells Target Cells Tear Drop Cells Ovalocytes Helmet Cells [place] Bodies [place] Rings [place] Cells Bite Cells Crenated Cell Elliptocytes Acanthocytes (Spur) Rouleaux Hemoglobin C Crystals Schistocytes Malaria parasites Roney Bodies Hem Pathologist Commnt PT INR Sodium 132 L Potassium 3.2 L Chloride 95.7 L Carbon Dioxide 29 Anion Gap 11 BUN 13 Creatinine 0.6 L Estimated GFR > 60 BUN/Creatinine Ratio 22 Glucose 91 POC Glucose Calcium 6.8 L Total Bilirubin 6.30 H AST 173 H ALT 91 H Alkaline Phosphatase 100 Ammonia 82.0 H Total Protein 6.7 Albumin 1.3 L Albumin/Globulin Ratio 0.2 Tumor Marker AFP Lymph Enumerat CD4/CD8 % CD3 Cells Absolute CD3 Count % CD4 Cells Absolute CD4 Count % CD8 Cells Absolute CD8 Count % CD19 Cells Absolute CD19 Count HIV-1 RNA PCR copies/ml HIV-1 RNA (PCR) log
[2017-08-09] MEDS ORDERED: K-DUR PO ONE (11:06)
[2017-08-09] MEDS: PROTONIX PO SCH (12:26)
[2017-08-09] MEDS: LASIX IV SCH (12:26)
[2017-08-09] MEDS: XIFAXAN PO SCH ×2 (12:26→21:36)
[2017-08-09] MEDS: MUCINEX ER PO SCH ×2 (12:27→21:35)
[2017-08-09] MEDS: FEOSOL PO SCH ×2 (12:27→21:35)
[2017-08-09] MEDS: THERAGRAN-M Tab PO SCH (12:27)
[2017-08-09] MEDS: MAG-OX PO SCH (12:27)
[2017-08-09] MEDS: BACTRIM DS PO SCH (12:27)
[2017-08-09] MEDS: TESSALON PERLES PO PRN (16:05)
--- NOTE | 2017-08-09 17:45 | Progress Note ---
Assessment and Plan Assessment and plan: --Hypokalemia; replace and monitor levels -- Metabolic encephalopathy ; hepatic encephalopathy Significantly improved , continue lactulose , rifaximin patient is more alert and awake tolerating oral nutrition --Cirrhosis liver; LFTs trending down, GI following --Coagulopathy; secondary to cirrhosis liver, --Severe thrombocytopenia; secondary to cirrhosis of liver, transfuse platelets as needed --Lt upper extremity acute DVT; patient is coagulopathic with INR of 2.23 patient is not a candidate anticoagulation in view of, INR 2.23 severe coagulopathy, thrombocytopenia, history of GI bleeding, secondary to cirrhosis liver --Severe protein calorie malnutrition; nutrition supplements and supportive care --Acute blood loss anemia secondary to upper GI bleeding; status post 3 PRBC transfusion Patient's hemoglobin 9.2-8.8, Transfuse as needed --Acute upper GI bleeding; Status post EGD x2, 2 large (5-7mm) ulcers in duodenum without visible vessel seen, Moderate erosive gastritis, cold bx of antrum for H pylori Medium hiatal hernia, LA Grade C erosive esophagitis, no new episodes of bleeding --HIV AIDS; ID evaluation noted and appreciated patient will follow with health Department upon discharge , --DVT prophylaxis; SCDs, no pharmacologic anticoagulation Consults and recommendations noted and appreciated I discussed patient's condition with his sister[Jayson Burton] and his nephew 2 days ago. Discussed with Ms. Eubanks[patient's sister] who came to [place] to visit the patient 2 days ago .updated patient's progress. DC planning. Case management Possible discharge in 1-2 days if stable, and cleared by GI History Interval history: Patient seen and examined medical records reviewed Patient is more alert awake and oriented 3 Wants to go home as he has to pay the rent, and does not want to be homeless Patient has no new complaints Vital signs reviewed Hospitalist Physical - Constitutional Vitals: Temp Pulse Resp BP Pulse Ox 98.2 F 82 18 122/67 100 08/09/17 15:52 08/09/17 15:52 08/09/17 15:52 08/09/17 15:52 08/09/17 15:52 General appearance: Present: no acute distress, cachectic, other (more alert and awake) - EENT Eyes: Present: PERRL, EOM intact - Neck Neck: Present: supple, normal ROM - Respiratory Respiratory effort: normal Respiratory: bilateral: diminished, negative: rales, rhonchi, wheezing - Cardiovascular Rhythm: regular Heart Sounds: Present: S1 & S2 - Extremities Extremities: no ischemia, No edema - Abdominal General gastrointestinal: soft, non-tender, non-distended, normal bowel sounds - Integumentary Integumentary: Present: clear, warm - Psychiatric Psychiatric: appropriate mood/affect, cooperative - Neurologic Neurologic: CNII-XII intact, moves all extremities Results - Labs CBC & Chem 7: 08/09/17 05:59 08/09/17 05:59 Labs: Laboratory Last Values WBC 3.5 K/mm3 (4.5-11.0) L 08/09/17 05:59 RBC 2.42 M/mm3 (3.65-5.03) L 08/09/17 05:59 Hgb 8.3 gm/dl (11.8-15.2) L 08/09/17 05:59 POC Hgb 6.8 (12-17) L 07/31/17 17:09 Hct 25.2 % (35.5-45.6) L 08/09/17 05:59 POC Hct 20 (38-51) L 07/31/17 17:09 MCV 104 fl (84-94) H 08/09/17 05:59 MCH 34 pg (28-32) H 08/09/17 05:59 MCHC 33 % (32-34) 08/09/17 05:59 RDW 22.5 % (13.2-15.2) H 08/09/17 05:59 Plt Count 48 K/mm3 (140-440) L 08/09/17 05:59 Lymph % (Auto) 30.2 % (13.4-35.0) 08/08/17 07:23 [place] % (Auto) Customer Professional 08/09/17 05:59 Eos % (Auto) 3.9 % (0.0-4.3) 08/08/17 07:23 Baso % (Auto) 0.7 % (0.0-1.8) 08/08/17 07:23 Lymph # 1.3 K/mm3 (1.2-5.4) 08/08/17 07:23 [place] # 0.6 K/mm3 (0.0-0.8) 08/08/17 07:23 Eos # 0.2 K/mm3 (0.0-0.4) 08/08/17 07:23 Baso # 0.0 K/mm3 (0.0-0.1) 08/08/17 07:23 Add Manual Diff Complete 08/09/17 05:59 Total Counted 100 08/09/17 05:59 Seg Neutrophils % 50.2 % (40.0-70.0) 08/08/17 07:23 Seg Neuts % (Manual) 64.0 % (40.0-70.0) 08/09/17 05:59 Band Neutrophils % 0 % 08/09/17 05:59 Lymphocytes % (Manual) 18.0 % (13.4-35.0) 08/09/17 05:59 Reactive Lymphs % (Man) 0 % 08/09/17 05:59 Monocytes % (Manual) 14.0 % (0.0-7.3) H 08/09/17 05:59 Eosinophils % (Manual) 3.0 % (0.0-4.3) 08/09/17 05:59 Basophils % (Manual) 1.0 % (0.0-1.8) 08/09/17 05:59 Metamyelocytes % 0 % 08/09/17 05:59 Myelocytes % 0 % 08/09/17 05:59 Promyelocytes % 0 % 08/09/17 05:59 Blast Cells % 0 % 08/09/17 05:59 Nucleated RBC % 3.0 % (0.0-0.9) H 08/09/17 05:59 Seg Neutrophils # 2.1 K/mm3 (1.8-7.7) 08/08/17 07:23 Seg Neutrophils # Man 2.2 K/mm3 (1.8-7.7) 08/09/17 05:59 Band Neutrophils # 0.0 K/mm3 08/09/17 05:59 Abs Lymphs (Manual) 983 cells/uL (850-3900) 08/06/17 13:52 Lymphocytes # (Manual) 0.6 K/mm3 (1.2-5.4) L 08/09/17 05:59 Abs React Lymphs (Man) 0.0 K/mm3 08/09/17 05:59 Monocytes # (Manual) 0.5 K/mm3 (0.0-0.8) 08/09/17 05:59 Eosinophils # (Manual) 0.1 K/mm3 (0.0-0.4) 08/09/17 05:59 Basophils # (Manual) 0.0 K/mm3 (0.0-0.1) 08/09/17 05:59 Metamyelocytes # 0.0 K/mm3 08/09/17 05:59 Myelocytes # 0.0 K/mm3 08/09/17 05:59 Promyelocytes # 0.0 K/mm3 08/09/17 05:59 Blast Cells # 0.0 K/mm3 08/09/17 05:59 WBC Morphology Not Reportable 08/09/17 05:59 Hypersegmented Neuts Not Reportable 08/09/17 05:59 Hyposegmented Neuts Not Reportable 08/09/17 05:59 Hypogranular Neuts Not Reportable 08/09/17 05:59 Smudge Cells Not Reportable 08/09/17 05:59 Toxic Granulation Not Reportable 08/09/17 05:59 Toxic Vacuolation Not Reportable 08/09/17 05:59 Dohle Bodies Not Reportable 08/09/17 05:59 Pelger-Huet Anomaly Not Reportable 08/09/17 05:59 [place] Rods Not Reportable 08/09/17 05:59 Platelet Estimate Not Reportable 08/09/17 05:59 Clumped Platelets Not Reportable 08/09/17 05:59 Plt Clumps, EDTA Not Reportable 08/09/17 05:59 Large Platelets Not Reportable 08/09/17 05:59 Giant Platelets Not Reportable 08/09/17 05:59 Platelet Satelliting Not Reportable 08/09/17 05:59 Plt Morphology Comment Not Reportable 08/09/17 05:59 RBC Morphology Normal 08/09/17 05:59 Dimorphic RBCs Not Reportable 08/09/17 05:59 Polychromasia Not Reportable 08/09/17 05:59 Hypochromasia Not Reportable 08/09/17 05:59 Poikilocytosis Not Reportable 08/09/17 05:59 Anisocytosis Not Reportable 08/09/17 05:59 Microcytosis Not Reportable 08/09/17 05:59 Macrocytosis Not Reportable 08/09/17 05:59 Spherocytes Not Reportable 08/09/17 05:59 Pappenheimer Bodies Not Reportable 08/09/17 05:59 Sickle Cells Not Reportable 08/09/17 05:59 Target Cells Not Reportable 08/09/17 05:59 Tear Drop Cells Not Reportable 08/09/17 05:59 Ovalocytes Not Reportable 08/09/17 05:59 Helmet Cells Not Reportable 08/09/17 05:59 [place] Bodies Not Reportable 08/09/17 05:59 [place] Rings Not Reportable 08/09/17 05:59 [place] Cells Not Reportable 08/09/17 05:59 Bite Cells Not Reportable 08/09/17 05:59 Crenated Cell Not Reportable 08/09/17 05:59 Elliptocytes Not Reportable 08/09/17 05:59 Acanthocytes (Spur) Not Reportable 08/09/17 05:59 Rouleaux Not Reportable 08/09/17 05:59 Hemoglobin C Crystals Not Reportable 08/09/17 05:59 Schistocytes Not Reportable 08/09/17 05:59 Malaria parasites Not Reportable 08/09/17 05:59 Roney Bodies Not Reportable 08/09/17 05:59 Hem Pathologist Commnt No 08/09/17 05:59 PT 27.5 Sec. (12.2-14.9) H 08/09/17 05:59 INR 2.37 (0.87-1.13) H 08/09/17 05:59 APTT 42.2 Sec. (24.2-36.6) H 07/31/17 10:50 POC Sodium 147 mmol/L (138-146) H 07/31/17 17:09 POC Potassium 5.0 (3.5-4.9) H 07/31/17 17:09 POC Chloride 103 (98-109) 07/31/17 17:09 Sodium 132 mmol/L (137-145) L 08/09/17 05:59 Potassium 3.2 mmol/L (3.6-5.0) L 08/09/17 05:59 Chloride 95.7 mmol/L (98-107) L 08/09/17 05:59 Carbon Dioxide 29 mmol/L (22-30) 08/09/17 05:59 Anion Gap 11 mmol/L 08/09/17 05:59 POC BUN 24 mg/dl (8-26) 07/31/17 17:09 BUN 13 mg/dL (9-20) 08/09/17 05:59 Creatinine 0.6 mg/dL (0.8-1.5) L 08/09/17 05:59 Estimated GFR > 60 ml/min 08/09/17 05:59 BUN/Creatinine Ratio 22 % 08/09/17 05:59 Glucose 91 mg/dL (75-100) 08/09/17 05:59 POC Glucose 118 (70-105) H 08/09/17 16:02 Lactic Acid 3.70 mmol/L (0.7-2.0) H* 07/31/17 10:50 Calcium 6.8 mg/dL (8.4-10.2) L 08/09/17 05:59 Phosphorus 3.40 mg/dL (2.5-4.5) 08/07/17 05:41 Magnesium 1.50 mg/dL (1.7-2.3) L 08/08/17 07:23 Total Bilirubin 6.30 mg/dL (0.1-1.2) H 08/09/17 05:59 Direct Bilirubin 4.5 mg/dL (0-0.2) H 08/07/17 05:41 Indirect Bilirubin 3.0 mg/dL 08/07/17 05:41 AST 173 units/L (5-40) H 08/09/17 05:59 ALT 91 units/L (7-56) H 08/09/17 05:59 Alkaline Phosphatase 100 units/L (35-129) 08/09/17 05:59 Ammonia 82.0 umol/L (25-60) H 08/09/17 05:59 Total Protein 6.7 g/dL (6.3-8.2) 08/09/17 05:59 Albumin 1.3 g/dL (3.9-5) L 08/09/17 05:59 Albumin/Globulin Ratio 0.2 % 08/09/17 05:59 Lipase 28 units/L (13-60) 07/31/17 10:50 Tumor Marker AFP See scanned result 08/01/17 04:01 Urine Opiates Screen Presumptive negative 07/31/17 16:54 Urine Methadone Screen Presumptive negative 07/31/17 16:54 Ur Barbiturates Screen Presumptive negative 07/31/17 16:54 Ur Phencyclidine Scrn Presumptive negative 07/31/17 16:54 Ur Amphetamines Screen Presumptive negative 07/31/17 16:54 U Benzodiazepines Scrn Presumptive negative 07/31/17 16:54 Urine Cocaine Screen Presumptive negative 07/31/17 16:54 U Marijuana (THC) Screen Presumptive negative 07/31/17 16:54 Drugs of Abuse Note Disclamer 07/31/17 16:54 Plasma/Serum Alcohol < 0.01 % (0-0.07) 07/31/17 12:56 Lymph Enumerat CD4/CD8 0.51 (0.86-5.00) L 08/06/17 13:52 % CD3 Cells 77 % (57-85) 08/06/17 13:52 Absolute CD3 Count 757 cells/uL (840-3060) L 08/06/17 13:52 % CD4 Cells 25 % (30-61) L 08/06/17 13:52 Absolute CD4 Count 250 cells/uL (490-1740) L 08/06/17 13:52 % CD8 Cells 50 % (12-42) H 08/06/17 13:52 Absolute CD8 Count 494 cells/uL (180-1170) 08/06/17 13:52 % CD19 Cells 20 % (6-29) 08/06/17 13:52 Absolute CD19 Count 191 cells/uL (110-660) 08/06/17 13:52 Hep Bs Antigen Reactive (Negative) 08/01/17 04:01 Hep B Core Total Ab Reactive (Nonreactive) H 08/01/17 04:01 Hepatitis C Antibody Non-reactive (NonReactive) 08/01/17 04:01 HIV-1 RNA PCR copies/ml [id number] Copies/mL H 08/06/17 13:52 HIV-1 RNA (PCR) log 4.67 Log cps/mL H 08/06/17 13:52 Blood Type O POSITIVE 07/31/17 10:50 Antibody Screen Negative 07/31/17 10:50 Crossmatch See Detail 07/31/17 10:50
[2017-08-09] MEDS: SODIUM CHLORIDE FLUSH SYRINGE 10 ML IV SCH ×3 (19:51→23:02)
[2017-08-10] MEDS: DUONEB *Not for PRN Use IH SCH ×5 (01:52→19:13)
[2017-08-10] MEDS: CARAFATE PO SCH ×4 (05:38→23:05)
[2017-08-10] MEDS: CEPHULAC PO SCH ×5 (05:38→23:02)
[2017-08-10 06:21] LABS: Basophils % (Auto) 0.7 % (0.0-1.8); Eosinophils # (Auto) 0.2 K/mm3 (0.0-0.4); Eosinophils % (Auto) 6.3 % (0.0-4.3); Hematocrit 23.9 % (35.5-45.6); Lymphocytes % (Auto) 29.8 % (13.4-35.0); Mean Corpuscular HGB Conc 34 % (32-34); Mean Corpuscular Hemoglobin 35 pg (28-32); Mean Corpuscular Volume 104 fl (84-94); Monocytes # (Auto) 0.5 K/mm3 (0.0-0.8); Monocytes % (Auto) 13.9 % (0.0-7.3); Red Blood Count 2.29 M/mm3 (3.65-5.03)
[2017-08-10 06:35] LABS: Platelet Count 50 K/mm3 (140-440); Red Cell Distribution Width 22.8 % (13.2-15.2)
[2017-08-10 06:50] LABS: Alanine Aminotransferase 98 units/L (7-56); Albumin 1.3 g/dL (3.9-5); BUN/Creatinine Ratio 15; Blood Urea Nitrogen 9 mg/dL (9-20); Calcium 6.8 mg/dL (8.4-10.2); Hemolysis Index 0
--- NOTE | 2017-08-10 09:16 | Progress Note ---
Assessment and Plan Assessment and plan: -- Metabolic encephalopathy ; hepatic encephalopathy Significantly improved , continue lactulose , rifaximin --Possible liver mass on ultrasound; check with MRI with and without contrast --Cirrhosis liver; LFTs trending down --Coagulopathy;due to cirrhosis liver, --Severe thrombocytopenia;due to cirrhosis of liver --Hypokalemia/Hypophosphatemia replace and monitor levels --Lt upper extremity acute DVT; patient is not a candidate for anticoagulation as patient is coagulopathic with INR of 2.23 thrombocytopenia, anemia, recent GI bleeding, due to cirrhosis liver --Severe protein calorie malnutrition; nutrition supplements and supportive care --Acute blood loss anemia secondary to upper GI bleeding; status post 3 PRBC transfusion Patient's hemoglobin 9.2-8.8, Transfuse as needed --Acute upper GI bleeding; Status post EGD x2, 2 large (5-7mm) ulcers in duodenum without visible vessel seen, Moderate erosive gastritis, cold bx of antrum for H pylori, hiatal hernia, [place] Grade C erosive esophagitis, no new episodes of bleeding --HIV AIDS; ID following, workup in progress patient will follow with health Department upon discharge , --DVT prophylaxis; SCDs, no pharmacologic anticoagulation Patient's sister and nephew aware of patient's condition . DC planning. Case management Possible discharge in 1-2 days if stable, and cleared by GI History Interval history: Patient seen and examined medical records reviewed Feels slightly better alert awake oriented 3 Patient wants to go home, No new complaints Patient had abdominal ultrasound this morning recommended by GI Revealed possible mass Vital signs reviewed Hospitalist Physical - Constitutional Vitals: Temp Pulse Resp BP Pulse Ox 98.2 F 89 20 105/66 98 08/09/17 20:40 08/09/17 21:34 08/09/17 21:34 08/09/17 20:40 08/09/17 21:27 General appearance: Present: no acute distress, cachectic, other (more alert and awake) - EENT Eyes: Present: PERRL, EOM intact - Neck Neck: Present: supple, normal ROM - Respiratory Respiratory effort: normal Respiratory: bilateral: diminished, negative: rales, rhonchi, wheezing - Cardiovascular Rhythm: regular Heart Sounds: Present: S1 & S2 - Extremities Extremities: no ischemia, No edema - Abdominal General gastrointestinal: soft, non-tender, non-distended, normal bowel sounds - Integumentary Integumentary: Present: clear, warm, jaundice - Psychiatric Psychiatric: appropriate mood/affect, cooperative - Neurologic Neurologic: CNII-XII intact, moves all extremities Results - Labs CBC & Chem 7: 08/10/17 05:59 08/10/17 05:59 Labs: Laboratory Last Values WBC 3.4 K/mm3 (4.5-11.0) L 08/10/17 05:59 RBC 2.29 M/mm3 (3.65-5.03) L 08/10/17 05:59 Hgb 8.0 gm/dl (11.8-15.2) L 08/10/17 05:59 POC Hgb 6.8 (12-17) L 07/31/17 17:09 Hct 23.9 % (35.5-45.6) L 08/10/17 05:59 POC Hct 20 (38-51) L 07/31/17 17:09 MCV 104 fl (84-94) H 08/10/17 05:59 MCH 35 pg (28-32) H 08/10/17 05:59 MCHC 34 % (32-34) 08/10/17 05:59 RDW 22.8 % (13.2-15.2) H 08/10/17 05:59 Plt Count 50 K/mm3 (140-440) L 08/10/17 05:59 Lymph % (Auto) 29.8 % (13.4-35.0) 08/10/17 05:59 [place] % (Auto) 13.9 % (0.0-7.3) H 08/10/17 05:59 Eos % (Auto) 6.3 % (0.0-4.3) H 08/10/17 05:59 Baso % (Auto) 0.7 % (0.0-1.8) 08/10/17 05:59 Lymph # 1.0 K/mm3 (1.2-5.4) L 08/10/17 05:59 [place] # 0.5 K/mm3 (0.0-0.8) 08/10/17 05:59 Eos # 0.2 K/mm3 (0.0-0.4) 08/10/17 05:59 Baso # 0.0 K/mm3 (0.0-0.1) 08/10/17 05:59 Add Manual Diff Complete 08/09/17 05:59 Total Counted 100 08/09/17 05:59 Seg Neutrophils % 49.3 % (40.0-70.0) 08/10/17 05:59 Seg Neuts % (Manual) 64.0 % (40.0-70.0) 08/09/17 05:59 Band Neutrophils % 0 % 08/09/17 05:59 Lymphocytes % (Manual) 18.0 % (13.4-35.0) 08/09/17 05:59 Reactive Lymphs % (Man) 0 % 08/09/17 05:59 Monocytes % (Manual) 14.0 % (0.0-7.3) H 08/09/17 05:59 Eosinophils % (Manual) 3.0 % (0.0-4.3) 08/09/17 05:59 Basophils % (Manual) 1.0 % (0.0-1.8) 08/09/17 05:59 Metamyelocytes % 0 % 08/09/17 05:59 Myelocytes % 0 % 08/09/17 05:59 Promyelocytes % 0 % 08/09/17 05:59 Blast Cells % 0 % 08/09/17 05:59 Nucleated RBC % 3.0 % (0.0-0.9) H 08/09/17 05:59 Seg Neutrophils # 1.7 K/mm3 (1.8-7.7) L 08/10/17 05:59 Seg Neutrophils # Man 2.2 K/mm3 (1.8-7.7) 08/09/17 05:59 Band Neutrophils # 0.0 K/mm3 08/09/17 05:59 Abs Lymphs (Manual) 983 cells/uL (850-3900) 08/06/17 13:52 Lymphocytes # (Manual) 0.6 K/mm3 (1.2-5.4) L 08/09/17 05:59 Abs React Lymphs (Man) 0.0 K/mm3 08/09/17 05:59 Monocytes # (Manual) 0.5 K/mm3 (0.0-0.8) 08/09/17 05:59 Eosinophils # (Manual) 0.1 K/mm3 (0.0-0.4) 08/09/17 05:59 Basophils # (Manual) 0.0 K/mm3 (0.0-0.1) 08/09/17 05:59 Metamyelocytes # 0.0 K/mm3 08/09/17 05:59 Myelocytes # 0.0 K/mm3 08/09/17 05:59 Promyelocytes # 0.0 K/mm3 08/09/17 05:59 Blast Cells # 0.0 K/mm3 08/09/17 05:59 WBC Morphology Not Reportable 08/09/17 05:59 Hypersegmented Neuts Not Reportable 08/09/17 05:59 Hyposegmented Neuts Not Reportable 08/09/17 05:59 Hypogranular Neuts Not Reportable 08/09/17 05:59 Smudge Cells Not Reportable 08/09/17 05:59 Toxic Granulation Not Reportable 08/09/17 05:59 Toxic Vacuolation Not Reportable 08/09/17 05:59 Dohle Bodies Not Reportable 08/09/17 05:59 Pelger-Huet Anomaly Not Reportable 08/09/17 05:59 [place] Rods Not Reportable 08/09/17 05:59 Platelet Estimate Not Reportable 08/09/17 05:59 Clumped Platelets Not Reportable 08/09/17 05:59 Plt Clumps, EDTA Not Reportable 08/09/17 05:59 Large Platelets Not Reportable 08/09/17 05:59 Giant Platelets Not Reportable 08/09/17 05:59 Platelet Satelliting Not Reportable 08/09/17 05:59 Plt Morphology Comment Not Reportable 08/09/17 05:59 RBC Morphology Normal 08/09/17 05:59 Dimorphic RBCs Not Reportable 08/09/17 05:59 Polychromasia Not Reportable 08/09/17 05:59 Hypochromasia Not Reportable 08/09/17 05:59 Poikilocytosis Not Reportable 08/09/17 05:59 Anisocytosis Not Reportable 08/09/17 05:59 Microcytosis Not Reportable 08/09/17 05:59 Macrocytosis Not Reportable 08/09/17 05:59 Spherocytes Not Reportable 08/09/17 05:59 Pappenheimer Bodies Not Reportable 08/09/17 05:59 Sickle Cells Not Reportable 08/09/17 05:59 Target Cells Not Reportable 08/09/17 05:59 Tear Drop Cells Not Reportable 08/09/17 05:59 Ovalocytes Not Reportable 08/09/17 05:59 Helmet Cells Not Reportable 08/09/17 05:59 [place] Bodies Not Reportable 08/09/17 05:59 [place] Rings Not Reportable 08/09/17 05:59 [place] Cells Not Reportable 08/09/17 05:59 Bite Cells Not Reportable 08/09/17 05:59 Crenated Cell Not Reportable 08/09/17 05:59 Elliptocytes Not Reportable 08/09/17 05:59 Acanthocytes (Spur) Not Reportable 08/09/17 05:59 Rouleaux Not Reportable 08/09/17 05:59 Hemoglobin C Crystals Not Reportable 08/09/17 05:59 Schistocytes Not Reportable 08/09/17 05:59 Malaria parasites Not Reportable 08/09/17 05:59 Roney Bodies Not Reportable 08/09/17 05:59 Hem Pathologist Commnt No 08/09/17 05:59 PT 27.5 Sec. (12.2-14.9) H 08/09/17 05:59 INR 2.37 (0.87-1.13) H 08/09/17 05:59 APTT 42.2 Sec. (24.2-36.6) H 07/31/17 10:50 POC Sodium 147 mmol/L (138-146) H 07/31/17 17:09 POC Potassium 5.0 (3.5-4.9) H 07/31/17 17:09 POC Chloride 103 (98-109) 07/31/17 17:09 Sodium 132 mmol/L (137-145) L 08/10/17 05:59 Potassium 3.5 mmol/L (3.6-5.0) L 08/10/17 05:59 Chloride 96.9 mmol/L (98-107) L 08/10/17 05:59 Carbon Dioxide 28 mmol/L (22-30) 08/10/17 05:59 Anion Gap 11 mmol/L 08/10/17 05:59 POC BUN 24 mg/dl (8-26) 07/31/17 17:09 BUN 9 mg/dL (9-20) 08/10/17 05:59 Creatinine 0.6 mg/dL (0.8-1.5) L 08/10/17 05:59 Estimated GFR > 60 ml/min 08/10/17 05:59 BUN/Creatinine Ratio 15 % 08/10/17 05:59 Glucose 88 mg/dL (75-100) 08/10/17 05:59 POC Glucose 118 (70-105) H 08/09/17 16:02 Lactic Acid 3.70 mmol/L (0.7-2.0) H* 07/31/17 10:50 Calcium 6.8 mg/dL (8.4-10.2) L 08/10/17 05:59 Phosphorus 1.50 mg/dL (2.5-4.5) L 08/10/17 05:59 Magnesium 1.70 mg/dL (1.7-2.3) 08/10/17 05:59 Total Bilirubin 6.00 mg/dL (0.1-1.2) H 08/10/17 05:59 Direct Bilirubin 4.5 mg/dL (0-0.2) H 08/07/17 05:41 Indirect Bilirubin 3.0 mg/dL 08/07/17 05:41 AST 177 units/L (5-40) H 08/10/17 05:59 ALT 98 units/L (7-56) H 08/10/17 05:59 Alkaline Phosphatase 111 units/L (35-129) 08/10/17 05:59 Ammonia 99.0 umol/L (25-60) H 08/10/17 05:59 Total Protein 6.9 g/dL (6.3-8.2) 08/10/17 05:59 Albumin 1.3 g/dL (3.9-5) L 08/10/17 05:59 Albumin/Globulin Ratio 0.2 % 08/10/17 05:59 Lipase 28 units/L (13-60) 07/31/17 10:50 Tumor Marker AFP See scanned result 08/01/17 04:01 Urine Opiates Screen Presumptive negative 07/31/17 16:54 Urine Methadone Screen Presumptive negative 07/31/17 16:54 Ur Barbiturates Screen Presumptive negative 07/31/17 16:54 Ur Phencyclidine Scrn Presumptive negative 07/31/17 16:54 Ur Amphetamines Screen Presumptive negative 07/31/17 16:54 U Benzodiazepines Scrn Presumptive negative 07/31/17 16:54 Urine Cocaine Screen Presumptive negative 07/31/17 16:54 U Marijuana (THC) Screen Presumptive negative 07/31/17 16:54 Drugs of Abuse Note Disclamer 07/31/17 16:54 Plasma/Serum Alcohol < 0.01 % (0-0.07) 07/31/17 12:56 Lymph Enumerat CD4/CD8 0.51 (0.86-5.00) L 08/06/17 13:52 % CD3 Cells 77 % (57-85) 08/06/17 13:52 Absolute CD3 Count 757 cells/uL (840-3060) L 08/06/17 13:52 % CD4 Cells 25 % (30-61) L 08/06/17 13:52 Absolute CD4 Count 250 cells/uL (490-1740) L 08/06/17 13:52 % CD8 Cells 50 % (12-42) H 08/06/17 13:52 Absolute CD8 Count 494 cells/uL (180-1170) 08/06/17 13:52 % CD19 Cells 20 % (6-29) 08/06/17 13:52 Absolute CD19 Count 191 cells/uL (110-660) 08/06/17 13:52 Hep Bs Antigen Reactive (Negative) 08/01/17 04:01 Hep B Core Total Ab Reactive (Nonreactive) H 08/01/17 04:01 Hepatitis C Antibody Non-reactive (NonReactive) 08/01/17 04:01 HIV-1 RNA PCR copies/ml 47729 Copies/mL H 08/06/17 13:52 HIV-1 RNA (PCR) log 4.67 Log cps/mL H 08/06/17 13:52 Blood Type O POSITIVE 07/31/17 10:50 Antibody Screen Negative 07/31/17 10:50 Crossmatch See Detail 07/31/17 10:50
--- NOTE | 2017-08-10 09:21 | Ultrasound Report ---
ULTRASOUND ABDOMEN LIMITED: TECHNIQUE: Transabdominal ultrasound with color Doppler interrogation. HISTORY: Jaundice. COMPARISON: No relevant comparison. FINDINGS: LIVER: The liver appears normal size and contour. The liver parenchyma is slightly coarse which is a nonspecific finding. There is a soft tissue density echogenicity rounded masslike lesion measuring up to 3.5 cm which appears to be exophytic from the left hepatic lobe or within the left subhepatic space. The etiology of this is unclear but a liver mass cannot be excluded. This could also represent adenopathy. The remainder of the liver is unremarkable. BILIARY SYSTEM: The gallbladder appears mildly dilated and contains moderate sludge. No shadowing gallstones are identified. There is mild gallbladder wall thickening measuring 4 mm. No pericholecystic fluid collection. The CBD measures 5 mm. PANCREAS: Normal. RIGHT KIDNEY: The right kidney measures 11.8 cm. The right kidney is echogenic consistent with non-specific renal parenchymal disease. No focal renal lesion or hydronephrosis. PROXIMAL AORTA: Normal. ASCITES: None. IMPRESSION: Possible mass arising from the left hepatic lobe or left subhepatic space. Further evaluation with CT or MRI with contrast is recommended. The gallbladder appears mildly dilated with wall thickening and moderate sludge. An early acute cholecystitis is difficult to exclude. Please correlate with patient's clinical presentation. Echogenic kidney consistent with nonspecific renal parenchymal disease.
[2017-08-10] MEDS ORDERED: KPHOS 40 MMOL in NACL 0.9% 500 ML 500 ML IV ONE (10:00)
--- NOTE | 2017-08-10 10:48 | Gastroenterology Progress Note ---
Assessment and Plan 1.cirrhosis -decompensated cirrhosis (not a tx candidate given non-compliance) 2.hepatic encephalopathy -improved -continue lactulose with goal of 3 BMs/day -continue xifaxin -etiology 2/2 hepatitis B 3.jaundice -continue to trend labs -abd U/S showed a possible liver mass -will order MRI for further evaluation and AFP 4.duodenal ulcer with hemorrhage -EGD 07/31- shoed large ulcers but no active bleeding and no varices -no active signs of bleeding -continue to monitor H/H; transfuse as needed -continue PPI, carafate, and MVI 4.HIV/hepatitis B- management per ID Subjective Date of service: 08/10/17 Principal diagnosis: encephalopathy Interval history: Patient sitting up in bed this am Alert and oriented x 3 w/o complaints. Denies abd pain, N/V, or signs of bleeding. Tolerating diet. Objective - Constitutional Vitals: Temp Pulse Resp BP Pulse Ox 98.2 F 82 20 108/70 99 08/10/17 08:13 08/10/17 09:32 08/10/17 09:32 08/10/17 08:13 08/10/17 09:22 General appearance: no acute distress - EENT Eyes: PERRL, EOM intact, scleral icterus - Respiratory Respiratory: bilateral: CTA (anterior) - Cardiovascular Rhythm: regular Heart Sounds: Present: S1 & S2 - Gastrointestinal General gastrointestinal: Present: soft, non-tender, non-distended, normal bowel sounds - Neurologic Neurological: alert and oriented x3 - Labs CBC & Chem 7: 08/10/17 05:59 08/10/17 05:59 Labs: Laboratory Results - last 24 hr 08/09/17 08/09/17 08/10/17 12:33 16:02 05:59 WBC 3.4 L RBC 2.29 L Hgb 8.0 L Hct 23.9 L MCV 104 H MCH 35 H MCHC 34 RDW 22.8 H Plt Count 50 L Lymph % (Auto) 29.8 [place] % (Auto) 13.9 H Eos % (Auto) 6.3 H Baso % (Auto) 0.7 Lymph # 1.0 L [place] # 0.5 Eos # 0.2 Baso # 0.0 Seg Neutrophils % 49.3 Seg Neutrophils # 1.7 L Sodium Potassium Chloride Carbon Dioxide Anion Gap BUN Creatinine Estimated GFR BUN/Creatinine Ratio Glucose POC Glucose 109 H 118 H Calcium Phosphorus Magnesium Total Bilirubin AST ALT Alkaline Phosphatase Ammonia Total Protein Albumin Albumin/Globulin Ratio 08/10/17 08/10/17 05:59 05:59 WBC RBC Hgb Hct MCV MCH MCHC RDW Plt Count Lymph % (Auto) [place] % (Auto) Eos % (Auto) Baso % (Auto) Lymph # [place] # Eos # Baso # Seg Neutrophils % Seg Neutrophils # Sodium 132 L Potassium 3.5 L Chloride 96.9 L Carbon Dioxide 28 Anion Gap 11 BUN 9 Creatinine 0.6 L Estimated GFR > 60 BUN/Creatinine Ratio 15 Glucose 88 POC Glucose Calcium 6.8 L Phosphorus 1.50 L Magnesium 1.70 Total Bilirubin 6.00 H AST 177 H ALT 98 H Alkaline Phosphatase 111 Ammonia 99.0 H Total Protein 6.9 Albumin 1.3 L Albumin/Globulin Ratio 0.2
[2017-08-10] MEDS: PHOS-NAK PO SCH ×2 (12:55→23:02)
[2017-08-10] MEDS: FEOSOL PO SCH ×2 (12:55→23:02)
[2017-08-10] MEDS: XIFAXAN PO SCH ×2 (12:55→23:02)
[2017-08-10] MEDS: MUCINEX ER PO SCH ×2 (12:55→23:03)
[2017-08-10] MEDS: LASIX IV SCH (12:56)
[2017-08-10] MEDS: BACTRIM DS PO SCH (12:56)
[2017-08-10] MEDS: THERAGRAN-M Tab PO SCH (12:56)
[2017-08-10] MEDS: K-DUR PO SCH (12:56)
[2017-08-10] MEDS: PROTONIX PO SCH (12:57)
[2017-08-10] MEDS: SODIUM CHLORIDE FLUSH SYRINGE 10 ML IV SCH ×2 (12:57→23:05)
[2017-08-10] MEDS: MAG-OX PO SCH (12:57)
--- NOTE | 2017-08-10 16:58 | Progress Note ---
Assessment and Plan Assessment: 1) Acute encephalopathy: Likely due to hepatic encephalopathy. Doubt opportunistic brain infection pt has no fever. Improving. Unclear if he stopped abruptly his ART causing reactivation of HBV. 2) Acute GI bleed: better 3) Coagulopathy: better 4) History of AIDS (unknown CD4/VL/Medication Noncompliance) -WD1=499 -HIV viral load=46K -Unclear whether patient stopped his ART or if he ever took them -cryptococcal serum antigen negative 5) History of TB S/P Full course antibiotic therapy 6) HBV / Cirrhosis 7) COPD 8) Elevated LFTs Plan: -follow-up HBV-DNA viral load -continue bactrim DS 1 tab po qday for prophylaxis -hepatic encephalopathy per GI Patient needs follow UP with HIV clinic. He is signing off please call me with questions Thank you for your consultation, will follow up with you. Barbara Solorzano MD Infectious Diseases Specialist [facility] [id number] [phone] Subjective Date of service: 08/10/17 Principal diagnosis: encephalopathy Interval history: Alert, talking. Still confused. Microbiology: Cryptococcal serum antigen negative Current Antimicrobials: bactrim DS 1 tab qd Previous Antimicrobials: Objective - Exam Narrative Exam: General appearance: Alert in NAD Eyes: anicteric sclerae, moist conjunctivae; no lid-lag; PERRLA HENT: Atraumatic; oropharynx unable to eval Neck: Trachea midline; supple, no thyromegaly or lymphadenopathy Lungs: miguelina rhonchi CV: RRR, no murmurs Abdomen: Soft, non-tender; no masses or hepatosplenomegaly Extremities: Left arm marked edema and no erythema or heat Skin: Normal temperature, turgor and texture; no rash, ulcers or subcutaneous nodules Psych: alert Neuro: alert Lines: No CVL / PICC - Constitutional Vitals: Vital Signs Temp Pulse Resp BP Pulse Ox 98.2 F 82 20 108/70 99 08/10/17 08:13 08/10/17 09:32 08/10/17 09:32 08/10/17 08:13 08/10/17 09:22 Temperature -Last 24 Hours Temperature 98.2 F Temperature 98.2 F - Labs CBC & Chem 7: 08/10/17 05:59 08/10/17 05:59 Labs: Abnormal lab results 08/10/17 08/10/17 08/10/17 Range/Units 05:59 05:59 05:59 WBC 3.4 L (4.5-11.0) K/mm3 RBC 2.29 L (3.65-5.03) M/mm3 Hgb 8.0 L (11.8-15.2) gm/dl Hct 23.9 L (35.5-45.6) % MCV 104 H (84-94) fl MCH 35 H (28-32) pg RDW 22.8 H (13.2-15.2) % Plt Count 50 L (140-440) K/mm3 [place] % (Auto) 13.9 H (0.0-7.3) % Eos % (Auto) 6.3 H (0.0-4.3) % Lymph # 1.0 L (1.2-5.4) K/mm3 Seg Neutrophils # 1.7 L (1.8-7.7) K/mm3 Sodium 132 L (137-145) mmol/L Potassium 3.5 L (3.6-5.0) mmol/L Chloride 96.9 L (98-107) mmol/L Creatinine 0.6 L (0.8-1.5) mg/dL Calcium 6.8 L (8.4-10.2) mg/dL Phosphorus 1.50 L (2.5-4.5) mg/dL Total Bilirubin 6.00 H (0.1-1.2) mg/dL AST 177 H (5-40) units/L ALT 98 H (7-56) units/L Ammonia 99.0 H (25-60) umol/L Albumin 1.3 L (3.9-5) g/dL
[2017-08-11] MEDS: DUONEB *Not for PRN Use IH SCH ×4 (02:51→21:11)
[2017-08-11] MEDS: CARAFATE PO SCH ×3 (07:00→17:39)
[2017-08-11] MEDS: CEPHULAC PO SCH ×2 (07:00→14:07)
[2017-08-11] MEDS ORDERED: VASELINE LIP THERAPY TP PRN (07:03)
--- NOTE | 2017-08-11 09:08 | Gastroenterology Progress Note ---
Assessment and Plan - Patient Problems (1) AIDS Current Visit: Yes Status: Acute (2) Cirrhosis of liver due to hepatitis B Current Visit: Yes Status: Acute Plan to address problem: MRI has been ordered (not done yet) to assess for possible neoplasm due to the abnormal u/s suggesting an exophytic lesion adjacent to or in the left hepatic lobe. Stable clinically. Subjective Date of service: 08/11/17 Principal diagnosis: encephalopathy Interval history: No specific c/o today. Objective - Constitutional Vitals: Temp Pulse Resp BP Pulse Ox 98.3 F 81 18 116/70 100 08/11/17 07:47 08/11/17 07:52 08/11/17 07:52 08/11/17 07:47 08/11/17 07:47 General appearance: no acute distress - EENT Eyes: scleral icterus ENT: hearing intact, clear oral mucosa - Neck Neck: supple, normal ROM - Respiratory Respiratory effort: normal Respiratory: bilateral: CTA - Cardiovascular Rhythm: regular - Extremities Extremities: pulses intact, No edema, normal color, Full ROM - Gastrointestinal General gastrointestinal: Present: soft, non-tender, non-distended, normal bowel sounds - Integumentary Integumentary: Present: clear, warm, dry, jaundice - Neurologic Neurological: alert and oriented x3 - Labs CBC & Chem 7: 08/10/17 05:59 08/10/17 05:59
[2017-08-11 11:38] LABS: Alanine Aminotransferase 97 units/L (7-56); Albumin 1.4 g/dL (3.9-5); BUN/Creatinine Ratio 13; Blood Urea Nitrogen 8 mg/dL (9-20); Calcium 6.8 mg/dL (8.4-10.2); Hemolysis Index 1
[2017-08-11] MEDS: LASIX IV SCH (11:41)
[2017-08-11] MEDS: SODIUM CHLORIDE FLUSH SYRINGE 10 ML IV SCH (11:42)
--- NOTE | 2017-08-11 11:57 | Progress Note ---
Assessment and Plan Assessment and plan: --Hypokalemia/hypophosphatemia; replace per protocol monitor levels -- Metabolic encephalopathy ; hepatic encephalopathy Significantly improved , continue lactulose , rifaximin --Possible liver mass on ultrasound; check with MRI with and without contrast --Cirrhosis liver; LFTs trending down --Coagulopathy;due to cirrhosis liver, --Severe thrombocytopenia;due to cirrhosis of liver --Hypokalemia/Hypophosphatemia replace and monitor levels --Lt upper extremity acute DVT; patient is not a candidate for anticoagulation as patient is coagulopathic with INR of 2.23 thrombocytopenia, anemia, recent GI bleeding, due to cirrhosis liver --Severe protein calorie malnutrition; nutrition supplements and supportive care --Acute blood loss anemia secondary to upper GI bleeding; status post 3 PRBC transfusion Patient's hemoglobin 9.2-8.8, Transfuse as needed --Acute upper GI bleeding; Status post EGD x2, 2 large (5-7mm) ulcers in duodenum without visible vessel seen, Moderate erosive gastritis, cold bx of antrum for H pylori, hiatal hernia, [place] Grade C erosive esophagitis, no new episodes of bleeding --HIV AIDS; ID following, workup in progress patient will follow with health Department upon discharge , --DVT prophylaxis; SCDs, no pharmacologic anticoagulation Follow MRI abdomen, consults recommendations Possible discharge in 1-2 days if stable History Interval history: Patient seen and examined medical records reviewed Feels slightly better no new complaints Patient wants to go home GI recommended MRI abdomen, to further evaluate hepatic mass on abdominal ultrasound Alert awake oriented 3 not in acute distress Vital signs reviewed Hospitalist Physical - Constitutional Vitals: Temp Pulse Resp BP Pulse Ox 98.3 F 81 18 116/70 100 08/11/17 07:47 08/11/17 07:52 08/11/17 07:52 08/11/17 07:47 08/11/17 07:47 General appearance: Present: no acute distress, cachectic, other (more alert and awake) - EENT Eyes: Present: PERRL, EOM intact - Neck Neck: Present: supple, normal ROM - Respiratory Respiratory effort: normal Respiratory: bilateral: diminished, negative: rales, rhonchi, wheezing - Cardiovascular Rhythm: regular Heart Sounds: Present: S1 & S2 - Extremities Extremities: no ischemia, No edema - Abdominal General gastrointestinal: soft, non-tender, non-distended, normal bowel sounds - Integumentary Integumentary: Present: clear, warm, jaundice - Psychiatric Psychiatric: appropriate mood/affect, cooperative - Neurologic Neurologic: CNII-XII intact, moves all extremities Results - Labs CBC & Chem 7: 08/10/17 05:59 08/11/17 10:54 Labs: Laboratory Last Values WBC 3.4 K/mm3 (4.5-11.0) L 08/10/17 05:59 RBC 2.29 M/mm3 (3.65-5.03) L 08/10/17 05:59 Hgb 8.0 gm/dl (11.8-15.2) L 08/10/17 05:59 POC Hgb 6.8 (12-17) L 07/31/17 17:09 Hct 23.9 % (35.5-45.6) L 08/10/17 05:59 POC Hct 20 (38-51) L 07/31/17 17:09 MCV 104 fl (84-94) H 08/10/17 05:59 MCH 35 pg (28-32) H 08/10/17 05:59 MCHC 34 % (32-34) 08/10/17 05:59 RDW 22.8 % (13.2-15.2) H 08/10/17 05:59 Plt Count 50 K/mm3 (140-440) L 08/10/17 05:59 Lymph % (Auto) 29.8 % (13.4-35.0) 08/10/17 05:59 [place] % (Auto) 13.9 % (0.0-7.3) H 08/10/17 05:59 Eos % (Auto) 6.3 % (0.0-4.3) H 08/10/17 05:59 Baso % (Auto) 0.7 % (0.0-1.8) 08/10/17 05:59 Lymph # 1.0 K/mm3 (1.2-5.4) L 08/10/17 05:59 [place] # 0.5 K/mm3 (0.0-0.8) 08/10/17 05:59 Eos # 0.2 K/mm3 (0.0-0.4) 08/10/17 05:59 Baso # 0.0 K/mm3 (0.0-0.1) 08/10/17 05:59 Add Manual Diff Complete 08/09/17 05:59 Total Counted 100 08/09/17 05:59 Seg Neutrophils % 49.3 % (40.0-70.0) 08/10/17 05:59 Seg Neuts % (Manual) 64.0 % (40.0-70.0) 08/09/17 05:59 Band Neutrophils % 0 % 08/09/17 05:59 Lymphocytes % (Manual) 18.0 % (13.4-35.0) 08/09/17 05:59 Reactive Lymphs % (Man) 0 % 08/09/17 05:59 Monocytes % (Manual) 14.0 % (0.0-7.3) H 08/09/17 05:59 Eosinophils % (Manual) 3.0 % (0.0-4.3) 08/09/17 05:59 Basophils % (Manual) 1.0 % (0.0-1.8) 08/09/17 05:59 Metamyelocytes % 0 % 08/09/17 05:59 Myelocytes % 0 % 08/09/17 05:59 Promyelocytes % 0 % 08/09/17 05:59 Blast Cells % 0 % 08/09/17 05:59 Nucleated RBC % 3.0 % (0.0-0.9) H 08/09/17 05:59 Seg Neutrophils # 1.7 K/mm3 (1.8-7.7) L 08/10/17 05:59 Seg Neutrophils # Man 2.2 K/mm3 (1.8-7.7) 08/09/17 05:59 Band Neutrophils # 0.0 K/mm3 08/09/17 05:59 Abs Lymphs (Manual) 983 cells/uL (850-3900) 08/06/17 13:52 Lymphocytes # (Manual) 0.6 K/mm3 (1.2-5.4) L 08/09/17 05:59 Abs React Lymphs (Man) 0.0 K/mm3 08/09/17 05:59 Monocytes # (Manual) 0.5 K/mm3 (0.0-0.8) 08/09/17 05:59 Eosinophils # (Manual) 0.1 K/mm3 (0.0-0.4) 08/09/17 05:59 Basophils # (Manual) 0.0 K/mm3 (0.0-0.1) 08/09/17 05:59 Metamyelocytes # 0.0 K/mm3 08/09/17 05:59 Myelocytes # 0.0 K/mm3 08/09/17 05:59 Promyelocytes # 0.0 K/mm3 08/09/17 05:59 Blast Cells # 0.0 K/mm3 08/09/17 05:59 WBC Morphology Not Reportable 08/09/17 05:59 Hypersegmented Neuts Not Reportable 08/09/17 05:59 Hyposegmented Neuts Not Reportable 08/09/17 05:59 Hypogranular Neuts Not Reportable 08/09/17 05:59 Smudge Cells Not Reportable 08/09/17 05:59 Toxic Granulation Not Reportable 08/09/17 05:59 Toxic Vacuolation Not Reportable 08/09/17 05:59 Dohle Bodies Not Reportable 08/09/17 05:59 Pelger-Huet Anomaly Not Reportable 08/09/17 05:59 [place] Rods Not Reportable 08/09/17 05:59 Platelet Estimate Not Reportable 08/09/17 05:59 Clumped Platelets Not Reportable 08/09/17 05:59 Plt Clumps, EDTA Not Reportable 08/09/17 05:59 Large Platelets Not Reportable 08/09/17 05:59 Giant Platelets Not Reportable 08/09/17 05:59 Platelet Satelliting Not Reportable 08/09/17 05:59 Plt Morphology Comment Not Reportable 08/09/17 05:59 RBC Morphology Normal 08/09/17 05:59 Dimorphic RBCs Not Reportable 08/09/17 05:59 Polychromasia Not Reportable 08/09/17 05:59 Hypochromasia Not Reportable 08/09/17 05:59 Poikilocytosis Not Reportable 08/09/17 05:59 Anisocytosis Not Reportable 08/09/17 05:59 Microcytosis Not Reportable 08/09/17 05:59 Macrocytosis Not Reportable 08/09/17 05:59 Spherocytes Not Reportable 08/09/17 05:59 Pappenheimer Bodies Not Reportable 08/09/17 05:59 Sickle Cells Not Reportable 08/09/17 05:59 Target Cells Not Reportable 08/09/17 05:59 Tear Drop Cells Not Reportable 08/09/17 05:59 Ovalocytes Not Reportable 08/09/17 05:59 Helmet Cells Not Reportable 08/09/17 05:59 [place] Bodies Not Reportable 08/09/17 05:59 [place] Rings Not Reportable 08/09/17 05:59 Piter Cells Not Reportable 08/09/17 05:59 Bite Cells Not Reportable 08/09/17 05:59 Crenated Cell Not Reportable 08/09/17 05:59 Elliptocytes Not Reportable 08/09/17 05:59 Acanthocytes (Spur) Not Reportable 08/09/17 05:59 Rouleaux Not Reportable 08/09/17 05:59 Hemoglobin C Crystals Not Reportable 08/09/17 05:59 Schistocytes Not Reportable 08/09/17 05:59 Malaria parasites Not Reportable 08/09/17 05:59 Roney Bodies Not Reportable 08/09/17 05:59 Hem Pathologist Commnt No 08/09/17 05:59 PT 27.5 Sec. (12.2-14.9) H 08/09/17 05:59 INR 2.37 (0.87-1.13) H 08/09/17 05:59 APTT 42.2 Sec. (24.2-36.6) H 07/31/17 10:50 POC Sodium 147 mmol/L (138-146) H 07/31/17 17:09 POC Potassium 5.0 (3.5-4.9) H 07/31/17 17:09 POC Chloride 103 (98-109) 07/31/17 17:09 Sodium 130 mmol/L (137-145) L 08/11/17 10:54 Potassium 3.4 mmol/L (3.6-5.0) L 08/11/17 10:54 Chloride 95.5 mmol/L (98-107) L 08/11/17 10:54 Carbon Dioxide 29 mmol/L (22-30) 08/11/17 10:54 Anion Gap 9 mmol/L 08/11/17 10:54 POC BUN 24 mg/dl (8-26) 07/31/17 17:09 BUN 8 mg/dL (9-20) L 08/11/17 10:54 Creatinine 0.6 mg/dL (0.8-1.5) L 08/11/17 10:54 Estimated GFR > 60 ml/min 08/11/17 10:54 BUN/Creatinine Ratio 13 % 08/11/17 10:54 Glucose 74 mg/dL (75-100) L 08/11/17 10:54 POC Glucose 118 (70-105) H 08/09/17 16:02 Lactic Acid 3.70 mmol/L (0.7-2.0) H* 07/31/17 10:50 Calcium 6.8 mg/dL (8.4-10.2) L 08/11/17 10:54 Phosphorus 1.90 mg/dL (2.5-4.5) L D 08/11/17 10:54 Magnesium 1.50 mg/dL (1.7-2.3) L 08/11/17 10:54 Total Bilirubin 5.90 mg/dL (0.1-1.2) H 08/11/17 10:54 Direct Bilirubin 4.5 mg/dL (0-0.2) H 08/07/17 05:41 Indirect Bilirubin 3.0 mg/dL 08/07/17 05:41 AST 170 units/L (5-40) H 08/11/17 10:54 ALT 97 units/L (7-56) H 08/11/17 10:54 Alkaline Phosphatase 130 units/L (35-129) H 08/11/17 10:54 Ammonia 32.0 umol/L (25-60) 08/11/17 10:54 Total Protein 6.9 g/dL (6.3-8.2) 08/11/17 10:54 Albumin 1.4 g/dL (3.9-5) L 08/11/17 10:54 Albumin/Globulin Ratio 0.3 % 08/11/17 10:54 Lipase 28 units/L (13-60) 07/31/17 10:50 Tumor Marker AFP See scanned result 08/01/17 04:01 Urine Opiates Screen Presumptive negative 07/31/17 16:54 Urine Methadone Screen Presumptive negative 07/31/17 16:54 Ur Barbiturates Screen Presumptive negative 07/31/17 16:54 Ur Phencyclidine Scrn Presumptive negative 07/31/17 16:54 Ur Amphetamines Screen Presumptive negative 07/31/17 16:54 U Benzodiazepines Scrn Presumptive negative 07/31/17 16:54 Urine Cocaine Screen Presumptive negative 07/31/17 16:54 U Marijuana (THC) Screen Presumptive negative 07/31/17 16:54 Drugs of Abuse Note Disclamer 07/31/17 16:54 Plasma/Serum Alcohol < 0.01 % (0-0.07) 07/31/17 12:56 Lymph Enumerat CD4/CD8 0.51 (0.86-5.00) L 08/06/17 13:52 % CD3 Cells 77 % (57-85) 08/06/17 13:52 Absolute CD3 Count 757 cells/uL (840-3060) L 08/06/17 13:52 % CD4 Cells 25 % (30-61) L 08/06/17 13:52 Absolute CD4 Count 250 cells/uL (490-1740) L 08/06/17 13:52 % CD8 Cells 50 % (12-42) H 08/06/17 13:52 Absolute CD8 Count 494 cells/uL (180-1170) 08/06/17 13:52 % CD19 Cells 20 % (6-29) 08/06/17 13:52 Absolute CD19 Count 191 cells/uL (110-660) 08/06/17 13:52 Hep Bs Antigen Reactive (Negative) 08/01/17 04:01 Hep B Core Total Ab Reactive (Nonreactive) H 08/01/17 04:01 Hepatitis C Antibody Non-reactive (NonReactive) 08/01/17 04:01 HIV-1 RNA PCR copies/ml 31001 Copies/mL H 08/06/17 13:52 HIV-1 RNA (PCR) log 4.67 Log cps/mL H 08/06/17 13:52 Blood Type O POSITIVE 07/31/17 10:50 Antibody Screen Negative 07/31/17 10:50 Crossmatch See Detail 07/31/17 10:50
[2017-08-11] MEDS ORDERED: K-DUR PO ONE (12:00)
[2017-08-11] MEDS: KPHOS 45 MMOL in NACL 0.9% 500 ML 500 ML IV ONE ×2 (13:04→16:17)
[2017-08-11] MEDS: PHOS-NAK PO SCH ×2 (14:04→14:08)
[2017-08-11] MEDS: THERAGRAN-M Tab PO SCH (14:04)
[2017-08-11] MEDS: FEOSOL PO SCH (14:05)
[2017-08-11] MEDS: MUCINEX ER PO SCH (14:06)
[2017-08-11] MEDS: XIFAXAN PO SCH (14:06)
[2017-08-11] MEDS: MAG-OX PO SCH (14:06)
[2017-08-11] MEDS: PROTONIX PO SCH (14:06)
[2017-08-11] MEDS: BACTRIM DS PO SCH (14:07)
[2017-08-11] MEDS: K-DUR PO SCH (14:08)
[2017-08-12] MEDS: MUCINEX ER PO SCH ×3 (00:47→22:45)
[2017-08-12] MEDS: XIFAXAN PO SCH ×3 (00:47→22:44)
[2017-08-12] MEDS: CEPHULAC PO SCH ×3 (00:48→22:45)
[2017-08-12] MEDS: FEOSOL PO SCH ×3 (00:48→22:43)
[2017-08-12] MEDS: CARAFATE PO SCH ×5 (00:55→23:21)
[2017-08-12] MEDS: PHOS-NAK PO SCH ×4 (00:55→22:44)
[2017-08-12] MEDS: SODIUM CHLORIDE FLUSH SYRINGE 10 ML IV SCH ×3 (00:55→22:44)
[2017-08-12 06:41] LABS: Basophils % (Auto) 0.5 % (0.0-1.8); Eosinophils # (Auto) 0.2 K/mm3 (0.0-0.4); Eosinophils % (Auto) 8.1 % (0.0-4.3); Hematocrit 24.1 % (35.5-45.6); Hemoglobin 8.1 gm/dl (11.8-15.2); Lymphocytes # (Auto) 0.7 K/mm3 (1.2-5.4); Lymphocytes % (Auto) 26.5 % (13.4-35.0); Mean Corpuscular HGB Conc 34 % (32-34); Mean Corpuscular Hemoglobin 35 pg (28-32); Mean Corpuscular Volume 104 fl (84-94); Monocytes # (Auto) 0.4 K/mm3 (0.0-0.8); Monocytes % (Auto) 15.3 % (0.0-7.3); Red Blood Count 2.31 M/mm3 (3.65-5.03)
[2017-08-12 06:49] LABS: Platelet Count 44 K/mm3 (140-440); Red Cell Distribution Width 22.7 % (13.2-15.2)
[2017-08-12 07:09] LABS: Alanine Aminotransferase 96 units/L (7-56); Albumin 1.3 g/dL (3.9-5); BUN/Creatinine Ratio 18; Blood Urea Nitrogen 7 mg/dL (9-20); Calcium 6.8 mg/dL (8.4-10.2); Hemolysis Index 17
[2017-08-12] MEDS ORDERED: KPHOS 45 MMOL in NACL 0.9% 500 ML 500 ML IV ONE (07:36)
--- NOTE | 2017-08-12 07:44 | Progress Note ---
Assessment and Plan Assessment and plan: --Hypomagnesemia/hyperphosphatemia/hypokalemia; patient has been refusing treatment We will consult the patient and replace per protocol's -- Metabolic encephalopathy ; hepatic encephalopathy Significantly improved , continue lactulose , rifaximin --Possible liver mass on ultrasound; pending MRI abdomen with and without contrast GI following --Cirrhosis liver; LFTs trending down --Coagulopathy;due to cirrhosis liver, --Severe thrombocytopenia;due to cirrhosis of liver --Lt upper extremity acute DVT; patient is not a candidate for anticoagulation as patient is coagulopathic with INR of 2.23 thrombocytopenia, anemia, recent GI bleeding, due to cirrhosis liver --Severe protein calorie malnutrition; nutrition supplements and supportive care --Acute blood loss anemia secondary to upper GI bleeding; status post 3 PRBC transfusion Patient's hemoglobin today is 8.1, Transfuse as needed --Acute upper GI bleeding; Status post EGD x2, 2 large (5-7mm) ulcers in duodenum without visible vessel seen, Moderate erosive gastritis, cold bx of antrum for H pylori, hiatal hernia, [place] Grade C erosive esophagitis, no new episodes of bleeding --HIV AIDS; ID following, workup in progress patient will follow with health Department upon discharge , --DVT prophylaxis; SCDs, no pharmacologic anticoagulation Follow MRI abdomen, consults recommendations Possible discharge in 1-2 days if stable History Interval history: Patient seen and examined medical records reviewed The patient feels better no new complaints Patient had MRI abdomen for evaluation of possible liver mass Patient has no new complaints Wants to go home No agitation and aggression Alert awake oriented 3 Vital signs reviewed Hospitalist Physical - Constitutional Vitals: Temp Pulse Resp BP Pulse Ox 98.4 F 79 18 104/60 98 08/11/17 23:45 08/11/17 23:45 08/11/17 23:45 08/11/17 23:45 08/11/17 23:45 General appearance: Present: no acute distress, cachectic, other (more alert and awake) - EENT Eyes: Present: PERRL, EOM intact - Neck Neck: Present: supple, normal ROM - Respiratory Respiratory effort: normal Respiratory: bilateral: diminished, negative: rales, rhonchi, wheezing - Cardiovascular Rhythm: regular Heart Sounds: Present: S1 & S2 - Extremities Extremities: no ischemia, No edema - Abdominal General gastrointestinal: soft, non-tender, non-distended, normal bowel sounds - Integumentary Integumentary: Present: clear, warm - Psychiatric Psychiatric: appropriate mood/affect, cooperative - Neurologic Neurologic: CNII-XII intact, moves all extremities Results - Labs CBC & Chem 7: 08/12/17 06:03 08/12/17 06:03 Labs: Laboratory Last Values WBC 2.6 K/mm3 (4.5-11.0) L 08/12/17 06:03 RBC 2.31 M/mm3 (3.65-5.03) L 08/12/17 06:03 Hgb 8.1 gm/dl (11.8-15.2) L 08/12/17 06:03 POC Hgb 6.8 (12-17) L 07/31/17 17:09 Hct 24.1 % (35.5-45.6) L 08/12/17 06:03 POC Hct 20 (38-51) L 07/31/17 17:09 MCV 104 fl (84-94) H 08/12/17 06:03 MCH 35 pg (28-32) H 08/12/17 06:03 MCHC 34 % (32-34) 08/12/17 06:03 RDW 22.7 % (13.2-15.2) H 08/12/17 06:03 Plt Count 44 K/mm3 (140-440) L 08/12/17 06:03 Lymph % (Auto) 26.5 % (13.4-35.0) 08/12/17 06:03 [place] % (Auto) 15.3 % (0.0-7.3) H 08/12/17 06:03 Eos % (Auto) 8.1 % (0.0-4.3) H 08/12/17 06:03 Baso % (Auto) 0.5 % (0.0-1.8) 08/12/17 06:03 Lymph # 0.7 K/mm3 (1.2-5.4) L 08/12/17 06:03 [place] # 0.4 K/mm3 (0.0-0.8) 08/12/17 06:03 Eos # 0.2 K/mm3 (0.0-0.4) 08/12/17 06:03 Baso # 0.0 K/mm3 (0.0-0.1) 08/12/17 06:03 Add Manual Diff Complete 08/09/17 05:59 Total Counted 100 08/09/17 05:59 Seg Neutrophils % 49.6 % (40.0-70.0) 08/12/17 06:03 Seg Neuts % (Manual) 64.0 % (40.0-70.0) 08/09/17 05:59 Band Neutrophils % 0 % 08/09/17 05:59 Lymphocytes % (Manual) 18.0 % (13.4-35.0) 08/09/17 05:59 Reactive Lymphs % (Man) 0 % 08/09/17 05:59 Monocytes % (Manual) 14.0 % (0.0-7.3) H 08/09/17 05:59 Eosinophils % (Manual) 3.0 % (0.0-4.3) 08/09/17 05:59 Basophils % (Manual) 1.0 % (0.0-1.8) 08/09/17 05:59 Metamyelocytes % 0 % 08/09/17 05:59 Myelocytes % 0 % 08/09/17 05:59 Promyelocytes % 0 % 08/09/17 05:59 Blast Cells % 0 % 08/09/17 05:59 Nucleated RBC % 3.0 % (0.0-0.9) H 08/09/17 05:59 Seg Neutrophils # 1.3 K/mm3 (1.8-7.7) L 08/12/17 06:03 Seg Neutrophils # Man 2.2 K/mm3 (1.8-7.7) 08/09/17 05:59 Band Neutrophils # 0.0 K/mm3 08/09/17 05:59 Abs Lymphs (Manual) 983 cells/uL (850-3900) 08/06/17 13:52 Lymphocytes # (Manual) 0.6 K/mm3 (1.2-5.4) L 08/09/17 05:59 Abs React Lymphs (Man) 0.0 K/mm3 08/09/17 05:59 Monocytes # (Manual) 0.5 K/mm3 (0.0-0.8) 08/09/17 05:59 Eosinophils # (Manual) 0.1 K/mm3 (0.0-0.4) 08/09/17 05:59 Basophils # (Manual) 0.0 K/mm3 (0.0-0.1) 08/09/17 05:59 Metamyelocytes # 0.0 K/mm3 08/09/17 05:59 Myelocytes # 0.0 K/mm3 08/09/17 05:59 Promyelocytes # 0.0 K/mm3 08/09/17 05:59 Blast Cells # 0.0 K/mm3 08/09/17 05:59 WBC Morphology Not Reportable 08/09/17 05:59 Hypersegmented Neuts Not Reportable 08/09/17 05:59 Hyposegmented Neuts Not Reportable 08/09/17 05:59 Hypogranular Neuts Not Reportable 08/09/17 05:59 Smudge Cells Not Reportable 08/09/17 05:59 Toxic Granulation Not Reportable 08/09/17 05:59 Toxic Vacuolation Not Reportable 08/09/17 05:59 Dohle Bodies Not Reportable 08/09/17 05:59 [place]uet Anomaly Not Reportable 08/09/17 05:59 [place] Rods Not Reportable 08/09/17 05:59 Platelet Estimate Not Reportable 08/09/17 05:59 Clumped Platelets Not Reportable 08/09/17 05:59 Plt Clumps, EDTA Not Reportable 08/09/17 05:59 Large Platelets Not Reportable 08/09/17 05:59 Giant Platelets Not Reportable 08/09/17 05:59 Platelet Satelliting Not Reportable 08/09/17 05:59 Plt Morphology Comment Not Reportable 08/09/17 05:59 RBC Morphology Normal 08/09/17 05:59 Dimorphic RBCs Not Reportable 08/09/17 05:59 Polychromasia Not Reportable 08/09/17 05:59 Hypochromasia Not Reportable 08/09/17 05:59 Poikilocytosis Not Reportable 08/09/17 05:59 Anisocytosis Not Reportable 08/09/17 05:59 Microcytosis Not Reportable 08/09/17 05:59 Macrocytosis Not Reportable 08/09/17 05:59 Spherocytes Not Reportable 08/09/17 05:59 Pappenheimer Bodies Not Reportable 08/09/17 05:59 Sickle Cells Not Reportable 08/09/17 05:59 Target Cells Not Reportable 08/09/17 05:59 Tear Drop Cells Not Reportable 08/09/17 05:59 Ovalocytes Not Reportable 08/09/17 05:59 Helmet Cells Not Reportable 08/09/17 05:59 [place] Bodies Not Reportable 08/09/17 05:59 [place] Rings Not Reportable 08/09/17 05:59 Piter Cells Not Reportable 08/09/17 05:59 Bite Cells Not Reportable 08/09/17 05:59 Crenated Cell Not Reportable 08/09/17 05:59 Elliptocytes Not Reportable 08/09/17 05:59 Acanthocytes (Spur) Not Reportable 08/09/17 05:59 Rouleaux Not Reportable 08/09/17 05:59 Hemoglobin C Crystals Not Reportable 08/09/17 05:59 Schistocytes Not Reportable 08/09/17 05:59 Malaria parasites Not Reportable 08/09/17 05:59 Roney Bodies Not Reportable 08/09/17 05:59 Hem Pathologist Commnt No 08/09/17 05:59 PT 27.5 Sec. (12.2-14.9) H 08/09/17 05:59 INR 2.37 (0.87-1.13) H 08/09/17 05:59 APTT 42.2 Sec. (24.2-36.6) H 07/31/17 10:50 POC Sodium 147 mmol/L (138-146) H 07/31/17 17:09 POC Potassium 5.0 (3.5-4.9) H 07/31/17 17:09 POC Chloride 103 (98-109) 07/31/17 17:09 Sodium 129 mmol/L (137-145) L 08/12/17 06:03 Potassium 3.9 mmol/L (3.6-5.0) 08/12/17 06:03 Chloride 95.2 mmol/L (98-107) L 08/12/17 06:03 Carbon Dioxide 29 mmol/L (22-30) 08/12/17 06:03 Anion Gap 9 mmol/L 08/12/17 06:03 POC BUN 24 mg/dl (8-26) 07/31/17 17:09 BUN 7 mg/dL (9-20) L 08/12/17 06:03 Creatinine 0.4 mg/dL (0.8-1.5) L 08/12/17 06:03 Estimated GFR > 60 ml/min 08/12/17 06:03 BUN/Creatinine Ratio 18 % 08/12/17 06:03 Glucose 81 mg/dL (75-100) 08/12/17 06:03 POC Glucose 118 (70-105) H 08/09/17 16:02 Lactic Acid 3.70 mmol/L (0.7-2.0) H* 07/31/17 10:50 Calcium 6.8 mg/dL (8.4-10.2) L 08/12/17 06:03 Phosphorus 1.90 mg/dL (2.5-4.5) L D 08/11/17 10:54 Magnesium 1.50 mg/dL (1.7-2.3) L 08/12/17 06:03 Total Bilirubin 5.00 mg/dL (0.1-1.2) H 08/12/17 06:03 Direct Bilirubin 4.5 mg/dL (0-0.2) H 08/07/17 05:41 Indirect Bilirubin 3.0 mg/dL 08/07/17 05:41 AST 172 units/L (5-40) H 08/12/17 06:03 ALT 96 units/L (7-56) H 08/12/17 06:03 Alkaline Phosphatase 139 units/L (35-129) H 08/12/17 06:03 Ammonia 73.0 umol/L (25-60) H 08/12/17 06:03 Total Protein 6.7 g/dL (6.3-8.2) 08/12/17 06:03 Albumin 1.3 g/dL (3.9-5) L 08/12/17 06:03 Albumin/Globulin Ratio 0.2 % 08/12/17 06:03 Lipase 28 units/L (13-60) 07/31/17 10:50 Tumor Marker AFP See scanned result 08/01/17 04:01 Urine Opiates Screen Presumptive negative 07/31/17 16:54 Urine Methadone Screen Presumptive negative 07/31/17 16:54 Ur Barbiturates Screen Presumptive negative 07/31/17 16:54 Ur Phencyclidine Scrn Presumptive negative 07/31/17 16:54 Ur Amphetamines Screen Presumptive negative 07/31/17 16:54 U Benzodiazepines Scrn Presumptive negative 07/31/17 16:54 Urine Cocaine Screen Presumptive negative 07/31/17 16:54 U Marijuana (THC) Screen Presumptive negative 07/31/17 16:54 Drugs of Abuse Note Disclamer 07/31/17 16:54 Plasma/Serum Alcohol < 0.01 % (0-0.07) 07/31/17 12:56 Lymph Enumerat CD4/CD8 0.51 (0.86-5.00) L 08/06/17 13:52 % CD3 Cells 77 % (57-85) 08/06/17 13:52 Absolute CD3 Count 757 cells/uL (840-3060) L 08/06/17 13:52 % CD4 Cells 25 % (30-61) L 08/06/17 13:52 Absolute CD4 Count 250 cells/uL (490-1740) L 08/06/17 13:52 % CD8 Cells 50 % (12-42) H 08/06/17 13:52 Absolute CD8 Count 494 cells/uL (180-1170) 08/06/17 13:52 % CD19 Cells 20 % (6-29) 08/06/17 13:52 Absolute CD19 Count 191 cells/uL (110-660) 08/06/17 13:52 Hep Bs Antigen Reactive (Negative) 08/01/17 04:01 Hep B Core Total Ab Reactive (Nonreactive) H 08/01/17 04:01 Hepatitis C Antibody Non-reactive (NonReactive) 08/01/17 04:01 HIV-1 RNA PCR copies/ml 46428 Copies/mL H 08/06/17 13:52 HIV-1 RNA (PCR) log 4.67 Log cps/mL H 08/06/17 13:52 Blood Type O POSITIVE 07/31/17 10:50 Antibody Screen Negative 07/31/17 10:50 Crossmatch See Detail 07/31/17 10:50
[2017-08-12] MEDS: DUONEB *Not for PRN Use IH SCH ×3 (08:01→20:51)
--- NOTE | 2017-08-12 09:34 | Event Note ---
Date: 08/12/17 The patient was off the floor, hopefully for MRI.
[2017-08-12] MEDS: BACTRIM DS PO SCH (12:06)
[2017-08-12] MEDS: LASIX IV SCH (12:13)
[2017-08-12] MEDS: PROTONIX PO SCH (12:14)
[2017-08-12] MEDS: THERAGRAN-M Tab PO SCH (12:14)
[2017-08-12] MEDS: MAG-OX PO SCH ×2 (12:14→22:45)
[2017-08-12] MEDS: K-DUR PO SCH (12:15)
[2017-08-12] MEDS ORDERED: AMBIEN PO PRN (21:27)
[2017-08-12] MEDS: BENADRYL IV PRN (22:43)
[2017-08-13] MEDS: PHOS-NAK PO SCH ×2 (04:27→13:36)
[2017-08-13] MEDS: CARAFATE PO SCH ×3 (06:53→18:16)
[2017-08-13] MEDS: FEOSOL PO SCH (09:37)
--- NOTE | 2017-08-13 10:23 | Magnetic Resonance Report ---
FINAL REPORT EXAM: MR ABDOMEN WO/W CON HISTORY: possible liver mass TECHNIQUE: MRI of the abdomen without and with gadolinium IV contrast. PRIORS: None currently available. FINDINGS: 3.7 cm well-defined round lesion in the left liver on series 8:63 does not demonstrate any enhancement on the postcontrast images. Lesion demonstrates intermediate T1 and T2 signal characteristics. No other lesions identified. Heterogeneous appearance to the liver noted. Slightly lobulated contour. Spleen is enlarged measuring 13.5 cm. Distended gallbladder is grossly unremarkable. Stomach, pancreas, adrenals, and kidneys are unremarkable. Mildly tortuous vessels around the GE junction identified. Tortuous vessels around the periaortic region suggest also suggest varices. Mild recanalization of the umbilical vein noted. Main portal vein is small and the right and left portal veins appears slightly attenuated. No filling defects identified. Images of the aorta and IVC are unremarkable. Retro aortic left renal vein identified. Partially imaged bowel loops are grossly unremarkable. [id number] stool noted. Trace ascites noted. IMPRESSION: Comparison with prior will be made as an addendum once requested prior images and report are available. Nonenhancing intermediate signal lesion in the left liver may represent a dysplastic nodule. Differential diagnosis includes mildly complex cysts, regenerating nodule, hamartoma, or possible malignancy. Short-term interval follow-up to document stability is recommended. Suspect cirrhotic liver. Splenomegaly, recanalization of the umbilical vein, attenuation of the portal veins and varices suggest portal hypertension. No portal vein thrombosis is identified.
--- NOTE | 2017-08-13 11:15 | Progress Note ---
Assessment and Plan Assessment and plan: 56-year-old male patient with significant history of HIV-AIDS, hepatitis B, cirrhosis of liver, coagulopathy, thrombocytopenia, noncompliant with medications was admitted for acute GI bleeding, evaluated by GI, had EGD 2, 3 units of PRBC transfusion, stabilized in ICU transfer to the floor, when patient suddenly developed hepatic encephalopathy with very high ammonia levels , received lactulose and rifaximin, with significant improvement Patient's ammonia improved from 99-73, however still has mild confusion and agitation ID and GI following --Hypomagnesemia/hyperphosphatemia/hypokalemia/hyponatremia; patient has been refusing treatment Replacement therapy, Closely monitor electrolytes -- Metabolic encephalopathy ; hepatic encephalopathy Significantly improved ,continue lactulose , rifaximin --Possible liver mass on ultrasound; MRI report reviewed --Cirrhosis liver; LFTs trending down --Coagulopathy;due to cirrhosis liver, --Severe thrombocytopenia/pancytopenia;due to cirrhosis of liver/HIV --Lt upper extremity acute DVT; patient is not a candidate for anticoagulation as patient is coagulopathy with INR of 2.23 thrombocytopenia, anemia, recent GI bleeding, due to cirrhosis liver --Severe protein calorie malnutrition; nutrition supplements and supportive care --Acute blood loss anemia secondary to upper GI bleeding; status post 3 PRBC transfusion Patient's hemoglobin today is 8.1, Transfuse as needed --Acute upper GI bleeding; Status post EGD x2, 2 large (5-7mm) ulcers in duodenum without visible vessel seen, Moderate erosive gastritis, cold bx of antrum for H pylori, hiatal hernia, [place] Grade C erosive esophagitis, no new episodes of bleeding --HIV AIDS; ID following, workup in progress patient will follow with health Department upon discharge , --DVT prophylaxis; SCDs, no pharmacologic anticoagulation Initially at discharge the patient, however due to social reasons, Unable to leave, Disposition DC home tomorrow if stable History Interval history: Patient seen and examined medical records reviewed Patient wants to go home, as he has to pay his rent concerned about his house GI cleared for discharge Patient feels better no new complaints Anxious to go home However patient does not have keys or telephone ,awaiting his family Alert awake oriented 3 not in acute distress Vital signs reviewed Hospitalist Physical - Constitutional Vitals: Temp Pulse Resp BP Pulse Ox 98.3 F 76 20 122/76 99 08/13/17 07:58 08/12/17 22:37 08/13/17 07:58 08/13/17 07:58 08/12/17 22:37 General appearance: Present: no acute distress, cachectic - EENT Eyes: Present: PERRL, EOM intact - Neck Neck: Present: supple, normal ROM - Respiratory Respiratory effort: normal Respiratory: bilateral: diminished, negative: rales, rhonchi, wheezing - Cardiovascular Rhythm: regular Heart Sounds: Present: S1 & S2 - Extremities Extremities: no ischemia, No edema - Abdominal General gastrointestinal: soft, non-tender, non-distended, normal bowel sounds - Integumentary Integumentary: Present: clear, warm - Psychiatric Psychiatric: appropriate mood/affect, cooperative - Neurologic Neurologic: CNII-XII intact, moves all extremities Results - Labs CBC & Chem 7: 08/12/17 06:03 08/12/17 06:03 Labs: Laboratory Last Values WBC 2.6 K/mm3 (4.5-11.0) L 08/12/17 06:03 RBC 2.31 M/mm3 (3.65-5.03) L 08/12/17 06:03 Hgb 8.1 gm/dl (11.8-15.2) L 08/12/17 06:03 POC Hgb 6.8 (12-17) L 07/31/17 17:09 Hct 24.1 % (35.5-45.6) L 08/12/17 06:03 POC Hct 20 (38-51) L 07/31/17 17:09 MCV 104 fl (84-94) H 08/12/17 06:03 MCH 35 pg (28-32) H 08/12/17 06:03 MCHC 34 % (32-34) 08/12/17 06:03 RDW 22.7 % (13.2-15.2) H 08/12/17 06:03 Plt Count 44 K/mm3 (140-440) L 08/12/17 06:03 Lymph % (Auto) 26.5 % (13.4-35.0) 08/12/17 06:03 [place] % (Auto) 15.3 % (0.0-7.3) H 08/12/17 06:03 Eos % (Auto) 8.1 % (0.0-4.3) H 08/12/17 06:03 Baso % (Auto) 0.5 % (0.0-1.8) 08/12/17 06:03 Lymph # 0.7 K/mm3 (1.2-5.4) L 08/12/17 06:03 [place] # 0.4 K/mm3 (0.0-0.8) 08/12/17 06:03 Eos # 0.2 K/mm3 (0.0-0.4) 08/12/17 06:03 Baso # 0.0 K/mm3 (0.0-0.1) 08/12/17 06:03 Add Manual Diff Complete 08/09/17 05:59 Total Counted 100 08/09/17 05:59 Seg Neutrophils % 49.6 % (40.0-70.0) 08/12/17 06:03 Seg Neuts % (Manual) 64.0 % (40.0-70.0) 08/09/17 05:59 Band Neutrophils % 0 % 08/09/17 05:59 Lymphocytes % (Manual) 18.0 % (13.4-35.0) 08/09/17 05:59 Reactive Lymphs % (Man) 0 % 08/09/17 05:59 Monocytes % (Manual) 14.0 % (0.0-7.3) H 08/09/17 05:59 Eosinophils % (Manual) 3.0 % (0.0-4.3) 08/09/17 05:59 Basophils % (Manual) 1.0 % (0.0-1.8) 08/09/17 05:59 Metamyelocytes % 0 % 08/09/17 05:59 Myelocytes % 0 % 08/09/17 05:59 Promyelocytes % 0 % 08/09/17 05:59 Blast Cells % 0 % 08/09/17 05:59 Nucleated RBC % 3.0 % (0.0-0.9) H 08/09/17 05:59 Seg Neutrophils # 1.3 K/mm3 (1.8-7.7) L 08/12/17 06:03 Seg Neutrophils # Man 2.2 K/mm3 (1.8-7.7) 08/09/17 05:59 Band Neutrophils # 0.0 K/mm3 08/09/17 05:59 Abs Lymphs (Manual) 983 cells/uL (850-3900) 08/06/17 13:52 Lymphocytes # (Manual) 0.6 K/mm3 (1.2-5.4) L 08/09/17 05:59 Abs React Lymphs (Man) 0.0 K/mm3 08/09/17 05:59 Monocytes # (Manual) 0.5 K/mm3 (0.0-0.8) 08/09/17 05:59 Eosinophils # (Manual) 0.1 K/mm3 (0.0-0.4) 08/09/17 05:59 Basophils # (Manual) 0.0 K/mm3 (0.0-0.1) 08/09/17 05:59 Metamyelocytes # 0.0 K/mm3 08/09/17 05:59 Myelocytes # 0.0 K/mm3 08/09/17 05:59 Promyelocytes # 0.0 K/mm3 08/09/17 05:59 Blast Cells # 0.0 K/mm3 08/09/17 05:59 WBC Morphology Not Reportable 08/09/17 05:59 Hypersegmented Neuts Not Reportable 08/09/17 05:59 Hyposegmented Neuts Not Reportable 08/09/17 05:59 Hypogranular Neuts Not Reportable 08/09/17 05:59 Smudge Cells Not Reportable 08/09/17 05:59 Toxic Granulation Not Reportable 08/09/17 05:59 Toxic Vacuolation Not Reportable 08/09/17 05:59 Dohle Bodies Not Reportable 08/09/17 05:59 Pelger-Huet Anomaly Not Reportable 08/09/17 05:59 [place] Rods Not Reportable 08/09/17 05:59 Platelet Estimate Not Reportable 08/09/17 05:59 Clumped Platelets Not Reportable 08/09/17 05:59 Plt Clumps, EDTA Not Reportable 08/09/17 05:59 Large Platelets Not Reportable 08/09/17 05:59 Giant Platelets Not Reportable 08/09/17 05:59 Platelet Satelliting Not Reportable 08/09/17 05:59 Plt Morphology Comment Not Reportable 08/09/17 05:59 RBC Morphology Normal 08/09/17 05:59 Dimorphic RBCs Not Reportable 08/09/17 05:59 Polychromasia Not Reportable 08/09/17 05:59 Hypochromasia Not Reportable 08/09/17 05:59 Poikilocytosis Not Reportable 08/09/17 05:59 Anisocytosis Not Reportable 08/09/17 05:59 Microcytosis Not Reportable 08/09/17 05:59 Macrocytosis Not Reportable 08/09/17 05:59 Spherocytes Not Reportable 08/09/17 05:59 Pappenheimer Bodies Not Reportable 08/09/17 05:59 Sickle Cells Not Reportable 08/09/17 05:59 Target Cells Not Reportable 08/09/17 05:59 Tear Drop Cells Not Reportable 08/09/17 05:59 Ovalocytes Not Reportable 08/09/17 05:59 Helmet Cells Not Reportable 08/09/17 05:59 [place] Bodies Not Reportable 08/09/17 05:59 [place] Rings Not Reportable 08/09/17 05:59 [place] Cells Not Reportable 08/09/17 05:59 Bite Cells Not Reportable 08/09/17 05:59 Crenated Cell Not Reportable 08/09/17 05:59 Elliptocytes Not Reportable 08/09/17 05:59 Acanthocytes (Spur) Not Reportable 08/09/17 05:59 Rouleaux Not Reportable 08/09/17 05:59 Hemoglobin C Crystals Not Reportable 08/09/17 05:59 Schistocytes Not Reportable 08/09/17 05:59 Malaria parasites Not Reportable 08/09/17 05:59 Roney Bodies Not Reportable 08/09/17 05:59 Hem Pathologist Commnt No 08/09/17 05:59 PT 27.5 Sec. (12.2-14.9) H 08/09/17 05:59 INR 2.37 (0.87-1.13) H 08/09/17 05:59 APTT 42.2 Sec. (24.2-36.6) H 07/31/17 10:50 POC Sodium 147 mmol/L (138-146) H 07/31/17 17:09 POC Potassium 5.0 (3.5-4.9) H 07/31/17 17:09 POC Chloride 103 (98-109) 07/31/17 17:09 Sodium 129 mmol/L (137-145) L 08/12/17 06:03 Potassium 3.9 mmol/L (3.6-5.0) 08/12/17 06:03 Chloride 95.2 mmol/L (98-107) L 08/12/17 06:03 Carbon Dioxide 29 mmol/L (22-30) 08/12/17 06:03 Anion Gap 9 mmol/L 08/12/17 06:03 POC BUN 24 mg/dl (8-26) 07/31/17 17:09 BUN 7 mg/dL (9-20) L 08/12/17 06:03 Creatinine 0.4 mg/dL (0.8-1.5) L 08/12/17 06:03 Estimated GFR > 60 ml/min 08/12/17 06:03 BUN/Creatinine Ratio 18 % 08/12/17 06:03 Glucose 81 mg/dL (75-100) 08/12/17 06:03 POC Glucose 118 (70-105) H 08/09/17 16:02 Lactic Acid 3.70 mmol/L (0.7-2.0) H* 07/31/17 10:50 Calcium 6.8 mg/dL (8.4-10.2) L 08/12/17 06:03 Phosphorus 1.90 mg/dL (2.5-4.5) L D 08/11/17 10:54 Magnesium 1.50 mg/dL (1.7-2.3) L 08/12/17 06:03 Total Bilirubin 5.00 mg/dL (0.1-1.2) H 08/12/17 06:03 Direct Bilirubin 4.5 mg/dL (0-0.2) H 08/07/17 05:41 Indirect Bilirubin 3.0 mg/dL 08/07/17 05:41 AST 172 units/L (5-40) H 08/12/17 06:03 ALT 96 units/L (7-56) H 08/12/17 06:03 Alkaline Phosphatase 139 units/L (35-129) H 08/12/17 06:03 Ammonia 73.0 umol/L (25-60) H 08/12/17 06:03 Total Protein 6.7 g/dL (6.3-8.2) 08/12/17 06:03 Albumin 1.3 g/dL (3.9-5) L 08/12/17 06:03 Albumin/Globulin Ratio 0.2 % 08/12/17 06:03 Lipase 28 units/L (13-60) 07/31/17 10:50 Tumor Marker AFP See scanned result 08/01/17 04:01 Urine Opiates Screen Presumptive negative 07/31/17 16:54 Urine Methadone Screen Presumptive negative 07/31/17 16:54 Ur Barbiturates Screen Presumptive negative 07/31/17 16:54 Ur Phencyclidine Scrn Presumptive negative 07/31/17 16:54 Ur Amphetamines Screen Presumptive negative 07/31/17 16:54 U Benzodiazepines Scrn Presumptive negative 07/31/17 16:54 Urine Cocaine Screen Presumptive negative 07/31/17 16:54 U Marijuana (THC) Screen Presumptive negative 07/31/17 16:54 Drugs of Abuse Note Disclamer 07/31/17 16:54 Plasma/Serum Alcohol < 0.01 % (0-0.07) 07/31/17 12:56 Lymph Enumerat CD4/CD8 0.51 (0.86-5.00) L 08/06/17 13:52 % CD3 Cells 77 % (57-85) 08/06/17 13:52 Absolute CD3 Count 757 cells/uL (840-3060) L 08/06/17 13:52 % CD4 Cells 25 % (30-61) L 08/06/17 13:52 Absolute CD4 Count 250 cells/uL (490-1740) L 08/06/17 13:52 % CD8 Cells 50 % (12-42) H 08/06/17 13:52 Absolute CD8 Count 494 cells/uL (180-1170) 08/06/17 13:52 % CD19 Cells 20 % (6-29) 08/06/17 13:52 Absolute CD19 Count 191 cells/uL (110-660) 08/06/17 13:52 Hep Bs Antigen Reactive (Negative) 08/01/17 04:01 Hep B Core Total Ab Reactive (Nonreactive) H 08/01/17 04:01 Hepatitis C Antibody Non-reactive (NonReactive) 08/01/17 04:01 HIV-1 RNA PCR copies/ml 51932 Copies/mL H 08/06/17 13:52 HIV-1 RNA (PCR) log 4.67 Log cps/mL H 08/06/17 13:52 Blood Type O POSITIVE 07/31/17 10:50 Antibody Screen Negative 07/31/17 10:50 Crossmatch See Detail 07/31/17 10:50
--- NOTE | 2017-08-13 11:16 | Progress Note ---
Assessment and Plan Assessment and plan: --Hypomagnesemia/hyperphosphatemia/hypokalemia; patient has been refusing treatment We will consult the patient and replace per protocol's -- Metabolic encephalopathy ; hepatic encephalopathy Significantly improved , continue lactulose , rifaximin --Possible liver mass on ultrasound; pending MRI abdomen with and without contrast GI following --Cirrhosis liver; LFTs trending down --Coagulopathy;due to cirrhosis liver, --Severe thrombocytopenia;due to cirrhosis of liver --Lt upper extremity acute DVT; patient is not a candidate for anticoagulation as patient is coagulopathic with INR of 2.23 thrombocytopenia, anemia, recent GI bleeding, due to cirrhosis liver --Severe protein calorie malnutrition; nutrition supplements and supportive care --Acute blood loss anemia secondary to upper GI bleeding; status post 3 PRBC transfusion Patient's hemoglobin today is 8.1, Transfuse as needed --Acute upper GI bleeding; Status post EGD x2, 2 large (5-7mm) ulcers in duodenum without visible vessel seen, Moderate erosive gastritis, cold bx of antrum for H pylori, hiatal hernia, [place] Grade C erosive esophagitis, no new episodes of bleeding --HIV AIDS; ID following, workup in progress patient will follow with health Department upon discharge , --DVT prophylaxis; SCDs, no pharmacologic anticoagulation Follow MRI abdomen, consults recommendations Possible discharge in 1-2 days if stable Hospitalist Physical - Constitutional Vitals: Temp Pulse Resp BP Pulse Ox 98.3 F 76 20 122/76 99 08/13/17 07:58 08/12/17 22:37 08/13/17 07:58 08/13/17 07:58 08/12/17 22:37 General appearance: Present: no acute distress, cachectic, other (more alert and awake) Results - Labs CBC & Chem 7: 08/12/17 06:03 08/12/17 06:03 Labs: Laboratory Last Values WBC 2.6 K/mm3 (4.5-11.0) L 08/12/17 06:03 RBC 2.31 M/mm3 (3.65-5.03) L 08/12/17 06:03 Hgb 8.1 gm/dl (11.8-15.2) L 08/12/17 06:03 POC Hgb 6.8 (12-17) L 07/31/17 17:09 Hct 24.1 % (35.5-45.6) L 08/12/17 06:03 POC Hct 20 (38-51) L 07/31/17 17:09 MCV 104 fl (84-94) H 08/12/17 06:03 MCH 35 pg (28-32) H 08/12/17 06:03 MCHC 34 % (32-34) 08/12/17 06:03 RDW 22.7 % (13.2-15.2) H 08/12/17 06:03 Plt Count 44 K/mm3 (140-440) L 08/12/17 06:03 Lymph % (Auto) 26.5 % (13.4-35.0) 08/12/17 06:03 [place] % (Auto) 15.3 % (0.0-7.3) H 08/12/17 06:03 Eos % (Auto) 8.1 % (0.0-4.3) H 08/12/17 06:03 Baso % (Auto) 0.5 % (0.0-1.8) 08/12/17 06:03 Lymph # 0.7 K/mm3 (1.2-5.4) L 08/12/17 06:03 [place] # 0.4 K/mm3 (0.0-0.8) 08/12/17 06:03 Eos # 0.2 K/mm3 (0.0-0.4) 08/12/17 06:03 Baso # 0.0 K/mm3 (0.0-0.1) 08/12/17 06:03 Add Manual Diff Complete 08/09/17 05:59 Total Counted 100 08/09/17 05:59 Seg Neutrophils % 49.6 % (40.0-70.0) 08/12/17 06:03 Seg Neuts % (Manual) 64.0 % (40.0-70.0) 08/09/17 05:59 Band Neutrophils % 0 % 08/09/17 05:59 Lymphocytes % (Manual) 18.0 % (13.4-35.0) 08/09/17 05:59 Reactive Lymphs % (Man) 0 % 08/09/17 05:59 Monocytes % (Manual) 14.0 % (0.0-7.3) H 08/09/17 05:59 Eosinophils % (Manual) 3.0 % (0.0-4.3) 08/09/17 05:59 Basophils % (Manual) 1.0 % (0.0-1.8) 08/09/17 05:59 Metamyelocytes % 0 % 08/09/17 05:59 Myelocytes % 0 % 08/09/17 05:59 Promyelocytes % 0 % 08/09/17 05:59 Blast Cells % 0 % 08/09/17 05:59 Nucleated RBC % 3.0 % (0.0-0.9) H 08/09/17 05:59 Seg Neutrophils # 1.3 K/mm3 (1.8-7.7) L 08/12/17 06:03 Seg Neutrophils # Man 2.2 K/mm3 (1.8-7.7) 08/09/17 05:59 Band Neutrophils # 0.0 K/mm3 08/09/17 05:59 Abs Lymphs (Manual) 983 cells/uL (850-3900) 08/06/17 13:52 Lymphocytes # (Manual) 0.6 K/mm3 (1.2-5.4) L 08/09/17 05:59 Abs React Lymphs (Man) 0.0 K/mm3 08/09/17 05:59 Monocytes # (Manual) 0.5 K/mm3 (0.0-0.8) 08/09/17 05:59 Eosinophils # (Manual) 0.1 K/mm3 (0.0-0.4) 08/09/17 05:59 Basophils # (Manual) 0.0 K/mm3 (0.0-0.1) 08/09/17 05:59 Metamyelocytes # 0.0 K/mm3 08/09/17 05:59 Myelocytes # 0.0 K/mm3 08/09/17 05:59 Promyelocytes # 0.0 K/mm3 08/09/17 05:59 Blast Cells # 0.0 K/mm3 08/09/17 05:59 WBC Morphology Not Reportable 08/09/17 05:59 Hypersegmented Neuts Not Reportable 08/09/17 05:59 Hyposegmented Neuts Not Reportable 08/09/17 05:59 Hypogranular Neuts Not Reportable 08/09/17 05:59 Smudge Cells Not Reportable 08/09/17 05:59 Toxic Granulation Not Reportable 08/09/17 05:59 Toxic Vacuolation Not Reportable 08/09/17 05:59 Dohle Bodies Not Reportable 08/09/17 05:59 Pelger-Huet Anomaly Not Reportable 08/09/17 05:59 [place] Rods Not Reportable 08/09/17 05:59 Platelet Estimate Not Reportable 08/09/17 05:59 Clumped Platelets Not Reportable 08/09/17 05:59 Plt Clumps, EDTA Not Reportable 08/09/17 05:59 Large Platelets Not Reportable 08/09/17 05:59 Giant Platelets Not Reportable 08/09/17 05:59 Platelet Satelliting Not Reportable 08/09/17 05:59 Plt Morphology Comment Not Reportable 08/09/17 05:59 RBC Morphology Normal 08/09/17 05:59 Dimorphic RBCs Not Reportable 08/09/17 05:59 Polychromasia Not Reportable 08/09/17 05:59 Hypochromasia Not Reportable 08/09/17 05:59 Poikilocytosis Not Reportable 08/09/17 05:59 Anisocytosis Not Reportable 08/09/17 05:59 Microcytosis Not Reportable 08/09/17 05:59 Macrocytosis Not Reportable 08/09/17 05:59 Spherocytes Not Reportable 08/09/17 05:59 Pappenheimer Bodies Not Reportable 08/09/17 05:59 Sickle Cells Not Reportable 08/09/17 05:59 Target Cells Not Reportable 08/09/17 05:59 Tear Drop Cells Not Reportable 08/09/17 05:59 Ovalocytes Not Reportable 08/09/17 05:59 Helmet Cells Not Reportable 08/09/17 05:59 [place] Bodies Not Reportable 08/09/17 05:59 [place] Rings Not Reportable 08/09/17 05:59 [place] Cells Not Reportable 08/09/17 05:59 Bite Cells Not Reportable 08/09/17 05:59 Crenated Cell Not Reportable 08/09/17 05:59 Elliptocytes Not Reportable 08/09/17 05:59 Acanthocytes (Spur) Not Reportable 08/09/17 05:59 Rouleaux Not Reportable 08/09/17 05:59 Hemoglobin C Crystals Not Reportable 08/09/17 05:59 Schistocytes Not Reportable 08/09/17 05:59 Malaria parasites Not Reportable 08/09/17 05:59 Roney Bodies Not Reportable 08/09/17 05:59 Hem Pathologist Commnt No 08/09/17 05:59 PT 27.5 Sec. (12.2-14.9) H 08/09/17 05:59 INR 2.37 (0.87-1.13) H 08/09/17 05:59 APTT 42.2 Sec. (24.2-36.6) H 07/31/17 10:50 POC Sodium 147 mmol/L (138-146) H 07/31/17 17:09 POC Potassium 5.0 (3.5-4.9) H 07/31/17 17:09 POC Chloride 103 (98-109) 07/31/17 17:09 Sodium 129 mmol/L (137-145) L 08/12/17 06:03 Potassium 3.9 mmol/L (3.6-5.0) 08/12/17 06:03 Chloride 95.2 mmol/L (98-107) L 08/12/17 06:03 Carbon Dioxide 29 mmol/L (22-30) 08/12/17 06:03 Anion Gap 9 mmol/L 08/12/17 06:03 POC BUN 24 mg/dl (8-26) 07/31/17 17:09 BUN 7 mg/dL (9-20) L 08/12/17 06:03 Creatinine 0.4 mg/dL (0.8-1.5) L 08/12/17 06:03 Estimated GFR > 60 ml/min 08/12/17 06:03 BUN/Creatinine Ratio 18 % 08/12/17 06:03 Glucose 81 mg/dL (75-100) 08/12/17 06:03 POC Glucose 118 (70-105) H 08/09/17 16:02 Lactic Acid 3.70 mmol/L (0.7-2.0) H* 07/31/17 10:50 Calcium 6.8 mg/dL (8.4-10.2) L 08/12/17 06:03 Phosphorus 1.90 mg/dL (2.5-4.5) L D 08/11/17 10:54 Magnesium 1.50 mg/dL (1.7-2.3) L 08/12/17 06:03 Total Bilirubin 5.00 mg/dL (0.1-1.2) H 08/12/17 06:03 Direct Bilirubin 4.5 mg/dL (0-0.2) H 08/07/17 05:41 Indirect Bilirubin 3.0 mg/dL 08/07/17 05:41 AST 172 units/L (5-40) H 08/12/17 06:03 ALT 96 units/L (7-56) H 08/12/17 06:03 Alkaline Phosphatase 139 units/L (35-129) H 08/12/17 06:03 Ammonia 73.0 umol/L (25-60) H 08/12/17 06:03 Total Protein 6.7 g/dL (6.3-8.2) 08/12/17 06:03 Albumin 1.3 g/dL (3.9-5) L 08/12/17 06:03 Albumin/Globulin Ratio 0.2 % 08/12/17 06:03 Lipase 28 units/L (13-60) 07/31/17 10:50 Tumor Marker AFP See scanned result 08/01/17 04:01 Urine Opiates Screen Presumptive negative 07/31/17 16:54 Urine Methadone Screen Presumptive negative 07/31/17 16:54 Ur Barbiturates Screen Presumptive negative 07/31/17 16:54 Ur Phencyclidine Scrn Presumptive negative 07/31/17 16:54 Ur Amphetamines Screen Presumptive negative 07/31/17 16:54 U Benzodiazepines Scrn Presumptive negative 07/31/17 16:54 Urine Cocaine Screen Presumptive negative 07/31/17 16:54 U Marijuana (THC) Screen Presumptive negative 07/31/17 16:54 Drugs of Abuse Note Disclamer 07/31/17 16:54 Plasma/Serum Alcohol < 0.01 % (0-0.07) 07/31/17 12:56 Lymph Enumerat CD4/CD8 0.51 (0.86-5.00) L 08/06/17 13:52 % CD3 Cells 77 % (57-85) 08/06/17 13:52 Absolute CD3 Count 757 cells/uL (840-3060) L 08/06/17 13:52 % CD4 Cells 25 % (30-61) L 08/06/17 13:52 Absolute CD4 Count 250 cells/uL (490-1740) L 08/06/17 13:52 % CD8 Cells 50 % (12-42) H 08/06/17 13:52 Absolute CD8 Count 494 cells/uL (180-1170) 08/06/17 13:52 % CD19 Cells 20 % (6-29) 08/06/17 13:52 Absolute CD19 Count 191 cells/uL (110-660) 08/06/17 13:52 Hep Bs Antigen Reactive (Negative) 08/01/17 04:01 Hep B Core Total Ab Reactive (Nonreactive) H 08/01/17 04:01 Hepatitis C Antibody Non-reactive (NonReactive) 08/01/17 04:01 HIV-1 RNA PCR copies/ml [id number] Copies/mL H 08/06/17 13:52 HIV-1 RNA (PCR) log 4.67 Log cps/mL H 08/06/17 13:52 Blood Type O POSITIVE 07/31/17 10:50 Antibody Screen Negative 07/31/17 10:50 Crossmatch See Detail 07/31/17 10:50
--- NOTE | 2017-08-13 11:32 | Gastroenterology Progress Note ---
<KRISTEN FLORES - Last Filed: 08/13/17 11:33> Assessment and Plan 1.cirrhosis 2/2 hepatitis B 2.jaundice 3.duodenal ulcer with hemorrhage 4.HIV/hepatitis B- management per ID -EGD 07/31- shoed large ulcers but no active bleeding and no varices -H/H stable with no active signs of bleeding -continue PPI, carafate, and MVI -decompensated cirrhosis (not a tx candidate given non-compliance) -hepatic encephalopathy- resolved -continue lactulose with goal of 3 BMs/day and xifaxan -abd U/S showed a possible liver mass -AFP-pending -MRI showed cirrhosis, portal hypertension, and a lesion in the left liver ( possibly malignant) -would no recommend biopsy at this time due to cystic component -recommend a repeat MRI in 1 month -clinically, patient is stable -pt okay to be d/c per GI standpoint on current medications with a clinic follow up appt in 10 days to schedule repeat MRI -will sign off, please call if needed Subjective Date of service: 08/13/17 Principal diagnosis: encephalopathy Interval history: Patient resting in bed w/o acute distress. He states he is feeling better and is requesting to be discharged so he can go home to pay his rent. Denies abd pain, N/V, or signs of bleeding. Objective - Constitutional Vitals: Temp Pulse Resp BP Pulse Ox 98.3 F 76 20 122/76 99 08/13/17 07:58 08/12/17 22:37 08/13/17 07:58 08/13/17 07:58 08/12/17 22:37 General appearance: no acute distress - Respiratory Respiratory: bilateral: CTA - Cardiovascular Rhythm: regular Heart Sounds: Present: S1 & S2 - Gastrointestinal General gastrointestinal: Present: soft, non-tender, non-distended, normal bowel sounds - Neurologic Neurological: alert and oriented x3 - Labs CBC & Chem 7: 08/12/17 06:03 08/12/17 06:03 <KASSY RODRIGUEZ - Last Filed: 08/13/17 16:12> Assessment and Plan - Patient Problems (1) AIDS Current Visit: Yes Status: Acute (2) Cirrhosis of liver due to hepatitis B Current Visit: Yes Status: Acute (3) Liver lesion Current Visit: Yes Status: Acute Plan to address problem: The patient was seen and examined. He is stable clinically and the hepatic lesion needs f/u MRI in about a month. The lesion is likely benign given cystic components, but the importance of follow up and exclusion of malignancy was stressed with the patient. Objective - Constitutional Vitals: Temp Pulse Resp BP Pulse Ox 98.3 F 76 20 122/76 99 08/13/17 07:58 08/12/17 22:37 08/13/17 07:58 08/13/17 07:58 08/12/17 22:37 - Labs CBC & Chem 7: 08/12/17 06:03 08/12/17 06:03
--- NOTE | 2017-08-13 13:06 | Discharge Summary ---
Providers - Providers Date of Admission: 07/31/17 12:47 Date of discharge: 08/13/17 Attending physician: YASIR HOPPER 08/05/17 13:29 Consult to Dietitian/Nutrition [CONS] Routine Physician Instructions: Reason For Exam: Reason for Consult: Write/Manage Tube Feeding 08/06/17 07:00 Consult to Physician [CONS] Routine Comment: Consulting Provider: OWEN ANTHONY Physician Instructions: Reason For Exam: HIV AIDS/cirrhosis./Hepatic encephalopathy 08/06/17 17:45 Consult to Dietitian/Nutrition [CONS] Routine Physician Instructions: Reason For Exam: Reason for Consult: Write/Manage TPN/PPN 08/09/17 09:44 Physical Therapy Evaluation and Treat [CONS] Urgent Comment: Reason For Exam: gait eval Primary care physician: [employer]MENT ENGINEER Hospitalization Condition: Stable Disposition: DC-01 TO HOME OR SELFCARE Time spent for discharge: 33 min Core Measure Documentation - Palliative Care Palliative Care/ Comfort Measures: Not Applicable - Core Measures Any of the following diagnoses?: none Exam - Constitutional Vitals: Temp Pulse Resp BP Pulse Ox 98.3 F 76 20 122/76 99 08/13/17 07:58 08/12/17 22:37 08/13/17 07:58 08/13/17 07:58 08/12/17 22:37 General appearance: Present: no acute distress, well-nourished - EENT Eyes: Present: PERRL, EOM intact - Neck Neck: Present: supple, normal ROM - Respiratory Respiratory effort: normal Respiratory: negative: rales, rhonchi, wheezing - Cardiovascular Rhythm: regular Heart Sounds: Present: S1 & S2 - Extremities Extremities: no ischemia, No edema - Abdominal General gastrointestinal: Present: soft, non-tender, non-distended, normal bowel sounds - Integumentary Integumentary: Present: clear, warm - Musculoskeletal Musculoskeletal: strength equal bilaterally - Psychiatric Psychiatric: appropriate mood/affect, cooperative - Neurologic Neurologic: CNII-XII intact, moves all extremities Plan Activity: advance as tolerated, fall precautions Diet: regular Additional Instructions: Advised to go to HIV clinic/health dept in 1 week. Patient advised to comply with his medications and follow-up visits Follow up with: SUSANNE WHITTEN MD [Primary Care Provider] - 7 Days MARIA ESTHER OSBORNE MD [Staff Physician] - 7 Days Prescriptions: Ferrous Sulfate [Feosol 325 MG tab] 325 mg PO BID #60 tablet Lactulose [Cephulac] 20 gm PO BID 30 Days oral.liqd Magnesium Oxide [Mag-Ox] 400 mg PO BID #10 tablet Pantoprazole [Protonix TAB] 40 mg PO QDAY #30 tablet Pot Phosphate/Na Phosphate [Phos-Nak] 1 each PO Q8H #15 powd.pack Rifaximin [Xifaxan] 550 mg PO BID #60 tablet Sulfamethoxazole/Trimethoprim [Bactrim DS TAB] 1 each PO DAILY #30 tablet
[2017-08-13] MEDS: BACTRIM DS PO SCH (13:26)
[2017-08-13] MEDS: THERAGRAN-M Tab PO SCH (13:28)
[2017-08-13] MEDS: MAG-OX PO SCH (13:28)
[2017-08-13] MEDS: XIFAXAN PO SCH (13:28)
[2017-08-13] MEDS: LASIX IV SCH (13:28)
[2017-08-13] MEDS: K-DUR PO SCH (13:28)
[2017-08-13] MEDS: CEPHULAC PO SCH (13:28)
[2017-08-13] MEDS: PROTONIX PO SCH (13:29)
[2017-08-13] MEDS: MUCINEX ER PO SCH (13:29)
[2017-08-13] MEDS: SODIUM CHLORIDE FLUSH SYRINGE 10 ML IV SCH (13:29)
[2017-08-13 16:15] VITALS: BP 110/58
--- NOTE | 2017-08-13 17:16 | Progress Note ---
Assessment and Plan Assessment: 1) Acute encephalopathy: Likely due to hepatic encephalopathy. Doubt opportunistic brain infection pt has no fever. Improving. Unclear if he stopped abruptly his ART causing reactivation of HBV. 2) Acute GI bleed: better 3) Coagulopathy: better 4) History of AIDS (unknown CD4/VL/Medication Noncompliance) -KQ8=263 -HIV viral load=46K -Unclear whether patient stopped his ART or if he ever took them -cryptococcal serum antigen negative 5) History of TB S/P Full course antibiotic therapy 6) HBV / Cirrhosis -EGD 07/31- shoed large ulcers but no active bleeding and no varices -abd U/S showed a possible liver mass -AFP-pending -MRI showed cirrhosis, portal hypertension, and a lesion in the left liver ( possibly malignant) -per GI med would no recommend biopsy at this time due to cystic component -per recommend a repeat MRI in 1 month -AFB 1.3 7) COPD 8) Elevated LFTs Plan: -follow-up HBV-DNA viral load -continue bactrim DS 1 tab po qday for prophylaxis -Patient needs follow up with HIV clinic. guarded prognosis Thank you for your consultation, will follow up with you. Barbara Solorzano MD Infectious Diseases Specialist [facility] M [phone] O [phone] Subjective Date of service: 08/13/17 Principal diagnosis: encephalopathy Interval history: Alert, talking, following commands, really wants to go home. No fever. Microbiology: Cryptococcal serum antigen negative Current Antimicrobials: bactrim DS 1 tab qd Previous Antimicrobials: Objective - Exam Narrative Exam: General appearance: Alert in NAD Eyes: anicteric sclerae, moist conjunctivae; no lid-lag; PERRLA HENT: Atraumatic; oropharynx unable to eval Neck: Trachea midline; supple, no thyromegaly or lymphadenopathy Lungs: miguelina rhonchi CV: RRR, no murmurs Abdomen: Soft, non-tender; no masses or hepatosplenomegaly Extremities: Left arm marked edema and no erythema or heat Skin: Normal temperature, turgor and texture; no rash, ulcers or subcutaneous nodules Psych: alert Neuro: alert Lines: No CVL / PICC - Constitutional Vitals: Vital Signs Temp Pulse Resp BP Pulse Ox 98.8 F 76 20 110/58 99 08/13/17 15:04 08/12/17 22:37 08/13/17 15:04 08/13/17 15:04 08/12/17 22:37 Temperature -Last 24 Hours Temperature 98.8 F Temperature 98.3 F - Labs CBC & Chem 7: 08/12/17 06:03 08/12/17 06:03
== END 2017-08-13 20:00 | disposition home or self-care (01) | DRG 377 ==
LOC: ED 10:16 → CC1 12:47 → 3A 08-01 17:13
PROVIDERS: ADMIT Internal Medicine; ATTEND Internal Medicine
PROC: 0DB68ZX Excision of Stomach, Via Natural or Artificial Opening Endoscopic, Diagnostic (ICD-10-PCS; principal; 2017-07-31)
PROC: 0DJ08ZZ Inspection of Upper Intestinal Tract, Via Natural or Artificial Opening Endoscopic (ICD-10-PCS; 2017-07-31)
PROC: 30233L1 Transfusion of Nonautologous Fresh Plasma into Peripheral Vein, Percutaneous Approach (ICD-10-PCS; 2017-07-31)
PROC: 30233N1 Transfusion of Nonautologous Red Blood Cells into Peripheral Vein, Percutaneous Approach (ICD-10-PCS; 2017-07-31)
PROC: 30233K1 Transfusion of Nonautologous Frozen Plasma into Peripheral Vein, Percutaneous Approach (ICD-10-PCS; 2017-07-31)
DX: K26.0 Acute duodenal ulcer with hemorrhage (principal); B20 Human immunodeficiency virus [HIV] disease; E43 Unspecified severe protein-calorie malnutrition; G93.41 Metabolic encephalopathy; A15.9 Respiratory tuberculosis unspecified; D62 Acute posthemorrhagic anemia; Z68.42 Body mass index [BMI] 45.0-49.9, adult; B19.10 Unspecified viral hepatitis B without hepatic coma; D68.4 Acquired coagulation factor deficiency; E87.1 Hypo-osmolality and hyponatremia; K22.10 Ulcer of esophagus without bleeding; I82.622 Acute embolism and thrombosis of deep veins of left upper extremity; J44.9 Chronic obstructive pulmonary disease, unspecified; K70.30 Alcoholic cirrhosis of liver without ascites; E87.5 Hyperkalemia; K44.9 Diaphragmatic hernia without obstruction or gangrene; K72.90 Hepatic failure, unspecified without coma; K29.00 Acute gastritis without bleeding
CPT/HCPCS: 36415; 70450; 71045; 74018; 74183; 76705; 80048; 80053; 80074; 80307; 80320; 82024; 82106; 82140; 82803; 82962; 83690; 83735; 84100; 85007; 85014; 85018; 85025; 85610; 85730; 86403; 86705; 86706; 86803; 86850; 86900; 86901; 86920; 87517; 87536; 88305; 88342; 93005; 93010; 94640; 99292; A9577; C9113; G0480; J1200; J1815; J1940; J2060; J2354; J2405; J2704; J3475; J7030; J7040; P9016; P9017

== ENCOUNTER 2017-08-14 06:19 | Emergency (ER) | payer OTHER ==
[2017-08-14 06:24] VITALS: BP 108/68
== END 2017-08-14 07:10 | disposition left against medical advice (07) ==
LOC: ED 06:19
DX: R10.9 Unspecified abdominal pain (principal); Z53.21 Procedure and treatment not carried out due to patient leaving prior to being seen by health care provider

== ENCOUNTER 2017-08-17 16:41 | Inpatient (IN) | payer SELFPAY ==
[2017-08-17 17:54] LABS: Hematocrit 24.1 % (35.5-45.6); Hemoglobin 7.7 gm/dl (11.8-15.2); Mean Corpuscular HGB Conc 32 % (32-34); Mean Corpuscular Hemoglobin 34 pg (28-32); Mean Corpuscular Volume 106 fl (84-94); Red Blood Count 2.26 M/mm3 (3.65-5.03)
[2017-08-17 18:05] LABS: Platelet Count 51 K/mm3 (140-440)
--- NOTE | 2017-08-17 18:28 | XRay Report ---
FINAL REPORT EXAM: XR CHEST ROUTINE 2V HISTORY: Shortness of breath TECHNIQUE: PA and lateral views of the chest PRIORS: CXR 12/24/2015 FINDINGS: Lines, tubes, and devices: N/A Lungs and pleura: Trachea is normal in position. There is partial collapse and cystic development in the right upper lobe medially, unchanged. Findings are consistent with cystic bronchiectasis. There is also stable linear scarring in the left apex. Lungs are otherwise clear of new infiltrate, pleural effusion, vascular congestion, or pneumothorax. No change. Cardiomediastinal silhouette: Cardiac and mediastinal silhouettes are unremarkable. Other: Bony structures are intact. IMPRESSION: No acute cardiopulmonary process seen. No change. Chronic findings in the apices including cystic bronchiectasis in the right upper lobe medially.
[2017-08-17 18:36] LABS: Alanine Aminotransferase 102 units/L (7-56); Albumin 1.2 g/dL (3.9-5); BUN/Creatinine Ratio 15; Blood Urea Nitrogen 9 mg/dL (9-20); Calcium 6.9 mg/dL (8.4-10.2); Hemolysis Index 0
[2017-08-17 18:39] LABS: Total Cells Counted 100
[2017-08-17 18:40] LABS: Anisocytosis 1+; Macrocytosis 1+
[2017-08-17 18:41] LABS: Hypochromasia 2+; Platelet Estimate Appears Decreased; Target Cells 1+
[2017-08-18 03:58] LABS: INR 2.74 (0.87-1.13)
[2017-08-18 03:59] LABS: Partial Thromboplastin Time 47.7 Sec. (24.2-36.6)
[2017-08-18] MEDS ORDERED: NACL 0.9% 500 ML 500 ML IV ONE (04:19)
[2017-08-18] MEDS ORDERED: ALBURX 25% (ALBUMIN) IV ONE (04:19)
[2017-08-18] MEDS ORDERED: NACL 0.9% 1000 ML 1,000 ML IV ONE (04:20)
[2017-08-18] MEDS ORDERED: BENADRYL IV ONE ×2 (04:24→04:33)
--- NOTE | 2017-08-18 04:25 | Emergency Department Report ---
ED Abdominal Pain HPI - General Chief Complaint: Dyspnea/Respdistress Stated Complaint: ZAIN Time Seen by Provider: 08/18/17 03:29 Source: patient Mode of arrival: Wheelchair Limitations: No Limitations - History of Present Illness Initial Comments: 56-year-old male with a past medical history AIDS/HIV, hepatitis B, duodenal ulcer, poor compliance, COPD, and asthma presents to the hospital complaints of abdominal distention, stomach pain, nausea, diarrhea, shortness of breath. Patient states symptoms have progressively worsened since his discharge from the hospital. Previous medical record reviewed. Patient was admitted here July 31 until August 13 and had extensive workup including EGD, MRI abdomen and pelvis, AFP, abdominal ultrasound. Results include duodenal ulcer without bleeding or varices and MRI shows cirrhosis, portal hypertension, and a lesion in the left liver possibly malignant. Recommendation was to follow-up in 10 days status post discharge MRI 1 month. Patient is not having primary care doctor has not followed up since discharge. Patient states he has return of abdominal pain and distention in his eyes are yellow again. Patient complains of diffuse pruritus. Patient also reports blood in his stool. - Related Data Previous Rx's Medication Instructions Recorded Last Taken Type Ferrous Sulfate [Feosol 325 MG tab] 325 mg PO BID #60 tablet 08/13/17 Unknown Rx Lactulose [Cephulac] 20 gm PO BID 30 Days oral.liqd 08/13/17 Unknown Rx Magnesium Oxide [Mag-Ox] 400 mg PO BID #10 tablet 08/13/17 Unknown Rx Pantoprazole [Protonix TAB] 40 mg PO QDAY #30 tablet 08/13/17 Unknown Rx Pot Phosphate/Na Phosphate 1 each PO Q8H #15 powd.pack 08/13/17 Unknown Rx [Phos-Nak] Rifaximin [Xifaxan] 550 mg PO BID #60 tablet 08/13/17 Unknown Rx Sulfamethoxazole/Trimethoprim 1 each PO DAILY #30 tablet 08/13/17 Unknown Rx [Bactrim DS TAB] Allergies Allergy/AdvReac Type Severity Reaction Status Date / Time No Known Allergies Allergy Verified 10/29/16 14:42 ED Review of Systems ROS: Stated complaint: ZAIN Other details as noted in HPI Comment: All other systems reviewed and negative ED Past Medical Hx - Past Medical History Previous Medical History?: Yes Hx Diabetes: No Hx Liver Disease: Yes (cirrhosis) Hx Asthma: Yes Hx COPD: Yes Hx Tuberculosis: Yes (treated with meds) Hx HIV: Yes Additional medical history: Hx. of pneumonia - Surgical History Past Surgical History?: No - Social History Smoking Status: Never Smoker Substance Use Type: None - Medications Home Medications: Home Medications Medication Instructions Recorded Confirmed Last Taken Type Ferrous Sulfate [Feosol 325 MG tab] 325 mg PO BID #60 tablet 08/13/17 Unknown Rx Lactulose [Cephulac] 20 gm PO BID 30 Days oral.liqd 08/13/17 Unknown Rx Magnesium Oxide [Mag-Ox] 400 mg PO BID #10 tablet 08/13/17 Unknown Rx Pantoprazole [Protonix TAB] 40 mg PO QDAY #30 tablet 08/13/17 Unknown Rx Pot Phosphate/Na Phosphate 1 each PO Q8H #15 powd.pack 08/13/17 Unknown Rx [Phos-Nak] Rifaximin [Xifaxan] 550 mg PO BID #60 tablet 08/13/17 Unknown Rx Sulfamethoxazole/Trimethoprim 1 each PO DAILY #30 tablet 08/13/17 Unknown Rx [Bactrim DS TAB] ED Physical Exam - General Limitations: No Limitations - Other Other exam information: General: No limitations, patient is alert in no acute distress Head exam: Atraumatic, normocephalic Eyes exam: Normal appearance, icteric sclerae ENT: Moist mucous membrane, normal oropharynx Neck exam: Normal inspection, full range of motion, no meningismus nontender Respiratory exam: Clear to auscultation bilateral, no wheezes, rales, crackles Cardiovascular: Normal rate and rhythm, normal heart sounds Abdomen: Soft, nondistended, abdominal distention, diffuse tenderness, no rebound or guarding : Anal warts noted, brown stool guaiac positive no melena or hematochezia Extremity: Full range of motion normal inspection no deformity Back: Normal Inspection, full range of motion, no tenderness Neurologic: Alert, oriented x3, cranial nerves intact, no motor or sensory deficit Psychiatric: normal affect, normal mood Skin: Warm, dry, intact ED Course Vital Signs 08/17/17 08/18/17 08/18/17 17:18 02:07 02:16 Temperature 98.7 F 97.7 F Pulse Rate 74 66 Respiratory 16 16 Rate Blood Pressure 106/58 Blood Pressure 113/72 [Right] O2 Sat by Pulse 97 100 99 Oximetry 08/18/17 08/18/17 03:00 04:00 Temperature Pulse Rate 72 70 Respiratory 16 19 Rate Blood Pressure 126/67 116/54 Blood Pressure [Right] O2 Sat by Pulse 100 100 Oximetry - Consultations Consultation #1: 08/18/17 04:21 case d/w DR Sujatha Jordan gi, rec albumin 25mg, NS to correct hyponatremia, and 1 unit PRBC ED Medical Decision Making - Lab Data Result diagrams: 08/17/17 17:32 08/17/17 17:32 Lab Results 08/17/17 08/17/17 08/18/17 Range/Units 17:32 17:32 03:28 WBC 3.8 L (4.5-11.0) K/mm3 RBC 2.26 L (3.65-5.03) M/mm3 Hgb 7.7 L (11.8-15.2) gm/dl Hct 24.1 L (35.5-45.6) % MCV 106 H (84-94) fl MCH 34 H (28-32) pg MCHC 32 (32-34) % RDW 22.0 H (13.2-15.2) % Plt Count 51 L (140-440) K/mm3 [place] % (Auto) Weld Fitter Add Manual Diff Complete Total Counted 100 Seg Neuts % (Manual) 73.0 H (40.0-70.0) % Band Neutrophils % 0 % Lymphocytes % (Manual) 9.0 L (13.4-35.0) % Reactive Lymphs % (Man) 0 % Monocytes % (Manual) 14.0 H (0.0-7.3) % Eosinophils % (Manual) 3.0 (0.0-4.3) % Basophils % (Manual) 1.0 (0.0-1.8) % Metamyelocytes % 0 % Myelocytes % 0 % Promyelocytes % 0 % Blast Cells % 0 % Nucleated RBC % Not Reportable Seg Neutrophils # Man 2.8 (1.8-7.7) K/mm3 Band Neutrophils # 0.0 K/mm3 Lymphocytes # (Manual) 0.3 L (1.2-5.4) K/mm3 Abs React Lymphs (Man) 0.0 K/mm3 Monocytes # (Manual) 0.5 (0.0-0.8) K/mm3 Eosinophils # (Manual) 0.1 (0.0-0.4) K/mm3 Basophils # (Manual) 0.0 (0.0-0.1) K/mm3 Metamyelocytes # 0.0 K/mm3 Myelocytes # 0.0 K/mm3 Promyelocytes # 0.0 K/mm3 Blast Cells # 0.0 K/mm3 WBC Morphology Not Reportable Hypersegmented Neuts Not Reportable Hyposegmented Neuts Not Reportable Hypogranular Neuts Not Reportable Smudge Cells Not Reportable Toxic Granulation Not Reportable Toxic Vacuolation Not Reportable Dohle Bodies Not Reportable Pelger-Huet Anomaly Not Reportable [place] Rods Not Reportable Platelet Estimate Appears decreased Clumped Platelets Not Reportable Plt Clumps, EDTA Not Reportable Large Platelets Not Reportable Giant Platelets Not Reportable Platelet Satelliting Not Reportable Plt Morphology Comment Not Reportable RBC Morphology Not Reportable Dimorphic RBCs Not Reportable Polychromasia Not Reportable Hypochromasia 2+ Poikilocytosis Not Reportable Anisocytosis 1+ Microcytosis Not Reportable Macrocytosis 1+ Spherocytes Not Reportable Pappenheimer Bodies Not Reportable Sickle Cells Not Reportable Target Cells 1+ Tear Drop Cells Not Reportable Ovalocytes Not Reportable Helmet Cells Not Reportable Roberts-Homewood Bodies Not Reportable Kiester Rings Not Reportable Brooker Cells Not Reportable Bite Cells Not Reportable Crenated Cell Not Reportable Elliptocytes Not Reportable Acanthocytes (Spur) Not Reportable Rouleaux Not Reportable Hemoglobin C Crystals Not Reportable Schistocytes Not Reportable Malaria parasites Not Reportable Roney Bodies Not Reportable Hem Pathologist Commnt No PT 30.9 H (12.2-14.9) Sec. INR 2.74 H (0.87-1.13) APTT 47.7 H (24.2-36.6) Sec. Sodium 127 L (137-145) mmol/L Potassium 3.8 (3.6-5.0) mmol/L Chloride 93.6 L (98-107) mmol/L Carbon Dioxide 28 (22-30) mmol/L Anion Gap 9 mmol/L BUN 9 (9-20) mg/dL Creatinine 0.6 L (0.8-1.5) mg/dL Estimated GFR > 60 ml/min BUN/Creatinine Ratio 15 % Glucose 91 (75-100) mg/dL Calcium 6.9 L (8.4-10.2) mg/dL Total Bilirubin 5.10 H (0.1-1.2) mg/dL AST 215 H (5-40) units/L ALT 102 H (7-56) units/L Alkaline Phosphatase 139 H (35-129) units/L Total Protein 6.8 (6.3-8.2) g/dL Albumin 1.2 L (3.9-5) g/dL Albumin/Globulin Ratio 0.2 % Lipase (13-60) units/L Blood Type Antibody Screen Crossmatch 08/18/17 08/18/17 Range/Units 03:28 03:28 WBC (4.5-11.0) K/mm3 RBC (3.65-5.03) M/mm3 Hgb (11.8-15.2) gm/dl Hct (35.5-45.6) % MCV (84-94) fl MCH (28-32) pg MCHC (32-34) % RDW (13.2-15.2) % Plt Count (140-440) K/mm3 [place] % (Auto) Add Manual Diff Total Counted Seg Neuts % (Manual) (40.0-70.0) % Band Neutrophils % % Lymphocytes % (Manual) (13.4-35.0) % Reactive Lymphs % (Man) % Monocytes % (Manual) (0.0-7.3) % Eosinophils % (Manual) (0.0-4.3) % Basophils % (Manual) (0.0-1.8) % Metamyelocytes % % Myelocytes % % Promyelocytes % % Blast Cells % % Nucleated RBC % Seg Neutrophils # Man (1.8-7.7) K/mm3 Band Neutrophils # K/mm3 Lymphocytes # (Manual) (1.2-5.4) K/mm3 Abs React Lymphs (Man) K/mm3 Monocytes # (Manual) (0.0-0.8) K/mm3 Eosinophils # (Manual) (0.0-0.4) K/mm3 Basophils # (Manual) (0.0-0.1) K/mm3 Metamyelocytes # K/mm3 Myelocytes # K/mm3 Promyelocytes # K/mm3 Blast Cells # K/mm3 WBC Morphology Hypersegmented Neuts Hyposegmented Neuts Hypogranular Neuts Smudge Cells Toxic Granulation Toxic Vacuolation Dohle Bodies Pelger-Huet Anomaly [place] Rods Platelet Estimate Clumped Platelets Plt Clumps, EDTA Large Platelets Giant Platelets Platelet Satelliting Plt Morphology Comment RBC Morphology Dimorphic RBCs Polychromasia Hypochromasia Poikilocytosis Anisocytosis Microcytosis Macrocytosis Spherocytes Pappenheimer Bodies Sickle Cells Target Cells Tear Drop Cells Ovalocytes Helmet Cells Roberts-Homewood Bodies Kiester Rings Brooker Cells Bite Cells Crenated Cell Elliptocytes Acanthocytes (Spur) Rouleaux Hemoglobin C Crystals Schistocytes Malaria parasites Roney Bodies Hem Pathologist Commnt PT (12.2-14.9) Sec. INR (0.87-1.13) APTT (24.2-36.6) Sec. Sodium (137-145) mmol/L Potassium (3.6-5.0) mmol/L Chloride (98-107) mmol/L Carbon Dioxide (22-30) mmol/L Anion Gap mmol/L BUN (9-20) mg/dL Creatinine (0.8-1.5) mg/dL Estimated GFR ml/min BUN/Creatinine Ratio % Glucose (75-100) mg/dL Calcium (8.4-10.2) mg/dL Total Bilirubin (0.1-1.2) mg/dL AST (5-40) units/L ALT (7-56) units/L Alkaline Phosphatase (35-129) units/L Total Protein (6.3-8.2) g/dL Albumin (3.9-5) g/dL Albumin/Globulin Ratio % Lipase 157 H (13-60) units/L Blood Type O POSITIVE Antibody Screen Negative Crossmatch See Detail - Radiology Data Radiology results: report reviewed CXR IMPRESSION: No acute cardiopulmonary process seen. No change. Chronic findings in the apices including cystic bronchiectasis in the right upper lobe medially. - Medical Decision Making The patient has multiple findings consistent with liver cirrhosis. Patient has a history of poor follow-up and compliance. He turns after recent admission with complaints of continuing worsening symptoms. Case discussed with GI attending Dr. Jordan. Given worsening sodium level recommends albumin 25 g followed by normal saline hydration and 1 unit of PRBC for anemia. Patient will be admitted to hospitalist service for further management. Has a baseline coagulopathy including thrombocytopenia secondary to cirrhosis - Differential Diagnosis cirrhosis, ascites, anemia, GI bleed Critical Care Time: No Critical care attestation.: If time is entered above; I have spent that time in minutes in the direct care of this critically ill patient, excluding procedure time. ED Disposition Clinical Impression: Cirrhosis of liver due to hepatitis B, Coagulopathy, AIDS, Thrombocytopenia, Anemia, Hyponatremia Disposition: OP ADMIT IP TO THIS HOSP Is pt being admited?: Yes Condition: Stable Time of Disposition: 04:37 (hospitalist/Dr cameron)
[2017-08-18] MEDS ORDERED: BENADRYL ONE (04:30)
[2017-08-18 07:35] LABS: Bilirubin,Urine SM (Negative); Blood,Urine MOD (Negative); Calcium Oxalate Crystals,Urine FEW; Color,Urine Amber (Yellow); Mucus,Urine FEW /HPF; Protein,Urine <15 mg/dL mg/dL (Negative)
--- NOTE | 2017-08-18 07:41 | History and Physical Report ---
History of Present Illness Date of examination: 08/18/17 Date of admission: 08/18/17 Chief complaint: Shortness of breath, abdominal pain yellow eyes blood in stool History of present illness: patient is 56 yo with HIV/AIDS, cirrhosis of liver with coagulopathy, recent GI bleed. Just discharged from hospital 5 days ago. He presents with shortness of breath, abd pain, worsening jaundice. Past History Past Medical History: COPD, HIV/AIDS, liver disease, other (Cirrhosis of liver, coagul;opathy,thrombocytopenia,duodenal ulcer,Erosive gastritis,PEM) Past Surgical History: Other (EGD) Social history: single, full code. denies: smoking, alcohol abuse Family history: no significant family history Medications and Allergies Allergies Allergy/AdvReac Type Severity Reaction Status Date / Time No Known Allergies Allergy Verified 10/29/16 14:42 Home Medications Medication Instructions Recorded Confirmed Last Taken Type Ferrous Sulfate [Feosol 325 MG tab] 325 mg PO BID #60 tablet 08/13/17 Unknown Rx Lactulose [Cephulac] 20 gm PO BID 30 Days oral.liqd 08/13/17 Unknown Rx Magnesium Oxide [Mag-Ox] 400 mg PO BID #10 tablet 08/13/17 Unknown Rx Pantoprazole [Protonix TAB] 40 mg PO QDAY #30 tablet 08/13/17 Unknown Rx Pot Phosphate/Na Phosphate 1 each PO Q8H #15 powd.pack 08/13/17 Unknown Rx [Phos-Nak] Rifaximin [Xifaxan] 550 mg PO BID #60 tablet 08/13/17 Unknown Rx Sulfamethoxazole/Trimethoprim 1 each PO DAILY #30 tablet 08/13/17 Unknown Rx [Bactrim DS TAB] Active Meds: Active Medications Sodium Chloride (Nacl 0.9% 1000 Ml) 1,000 mls @ 250 mls/hr IV ONCE ONE Stop: 08/18/17 08:19 Exam - Physical Exam Narrative exam: General: Not in acute distress, lying in bed, HEENT: Normocephalic, atraumatic Neck: supple,no JVD Lungs: Clear to auscultation, no rales, no wheeze Heart: S1 and S2 regular, no murmurs, rubs or gallop Abd: soft, non tender,non distended, normal bowel sounds Ext: Erythema, edema, no clubbing or cyanosis Neuro: Awake,alert,oriented x 3, moves all extremities, Psych: Normal mood - Constitutional Vitals: Temp Pulse Resp BP Pulse Ox 97.6 F 79 16 128/75 100 08/18/17 06:34 08/18/17 06:34 08/18/17 06:34 08/18/17 06:34 08/18/17 06:34 Results - Labs CBC & Chem 7: 08/19/17 05:49 08/19/17 05:49 Labs: Abnormal lab results 08/17/17 08/17/17 08/18/17 Range/Units 17:32 17:32 03:28 WBC 3.8 L (4.5-11.0) K/mm3 RBC 2.26 L (3.65-5.03) M/mm3 Hgb 7.7 L (11.8-15.2) gm/dl Hct 24.1 L (35.5-45.6) % MCV 106 H (84-94) fl MCH 34 H (28-32) pg RDW 22.0 H (13.2-15.2) % Plt Count 51 L (140-440) K/mm3 Seg Neuts % (Manual) 73.0 H (40.0-70.0) % Lymphocytes % (Manual) 9.0 L (13.4-35.0) % Monocytes % (Manual) 14.0 H (0.0-7.3) % Lymphocytes # (Manual) 0.3 L (1.2-5.4) K/mm3 PT 30.9 H (12.2-14.9) Sec. INR 2.74 H (0.87-1.13) APTT 47.7 H (24.2-36.6) Sec. Sodium 127 L (137-145) mmol/L Chloride 93.6 L (98-107) mmol/L Creatinine 0.6 L (0.8-1.5) mg/dL Calcium 6.9 L (8.4-10.2) mg/dL Total Bilirubin 5.10 H (0.1-1.2) mg/dL AST 215 H (5-40) units/L ALT 102 H (7-56) units/L Alkaline Phosphatase 139 H (35-129) units/L Albumin 1.2 L (3.9-5) g/dL Lipase (13-60) units/L Crossmatch 08/18/17 08/18/17 Range/Units 03:28 03:28 WBC (4.5-11.0) K/mm3 RBC (3.65-5.03) M/mm3 Hgb (11.8-15.2) gm/dl Hct (35.5-45.6) % MCV (84-94) fl MCH (28-32) pg RDW (13.2-15.2) % Plt Count (140-440) K/mm3 Seg Neuts % (Manual) (40.0-70.0) % Lymphocytes % (Manual) (13.4-35.0) % Monocytes % (Manual) (0.0-7.3) % Lymphocytes # (Manual) (1.2-5.4) K/mm3 PT (12.2-14.9) Sec. INR (0.87-1.13) APTT (24.2-36.6) Sec. Sodium (137-145) mmol/L Chloride (98-107) mmol/L Creatinine (0.8-1.5) mg/dL Calcium (8.4-10.2) mg/dL Total Bilirubin (0.1-1.2) mg/dL AST (5-40) units/L ALT (7-56) units/L Alkaline Phosphatase (35-129) units/L Albumin (3.9-5) g/dL Lipase 157 H (13-60) units/L Crossmatch See Detail Assessment and Plan Abdominal pain. Admit to med/surg HIV/AIDS Anemia Cirrhosis of liver Coagulopathy due to cirrhosis Recent GI bleed Thrombocytopenia Jaundice Full code
[2017-08-18] MEDS ORDERED: ZOFRAN IV PRN (07:42)
[2017-08-18] MEDS ORDERED: SODIUM CHLORIDE FLUSH SYRINGE 10 ML IV PRN (07:42)
[2017-08-18 07:53] LABS: Ictotest,Urine Positive (Negative)
[2017-08-18] MEDS ORDERED: PROTONIX IV SCH (08:00)
[2017-08-18] MEDS ORDERED: PROTONIX IV NR (08:05)
[2017-08-18] MEDS: SODIUM CHLORIDE FLUSH SYRINGE 10 ML IV SCH ×2 (11:28→21:37)
[2017-08-18] MEDS: MORPHINE IV PRN (11:56)
[2017-08-18 14:02] LABS: Hemoglobin 8.8 gm/dl (11.8-15.2)
[2017-08-18 14:03] LABS: Hematocrit 27.4 % (35.5-45.6)
[2017-08-18] MEDS: BACTRIM DS PO SCH (18:03)
[2017-08-18 20:33] LABS: Hematocrit 26.7 % (35.5-45.6); Hemoglobin 8.6 gm/dl (11.8-15.2)
[2017-08-18] MEDS: PROTONIX IV SCH (21:36)
[2017-08-18] MEDS: XIFAXAN PO SCH (21:36)
[2017-08-18] MEDS: CARAFATE PO SCH (21:36)
[2017-08-19] MEDS: CARAFATE PO SCH ×4 (01:17→18:37)
[2017-08-19 06:41] LABS: BUN/Creatinine Ratio 14; Blood Urea Nitrogen 7 mg/dL (9-20); Calcium 7.5 mg/dL (8.4-10.2); Hemolysis Index 5
[2017-08-19 06:42] LABS: Hematocrit 27.3 % (35.5-45.6); Mean Corpuscular HGB Conc 33 % (32-34); Mean Corpuscular Hemoglobin 34 pg (28-32); Mean Corpuscular Volume 104 fl (84-94); Red Blood Count 2.63 M/mm3 (3.65-5.03); Red Cell Distribution Width 23.3 % (13.2-15.2)
[2017-08-19 06:47] LABS: INR 2.61 (0.87-1.13)
[2017-08-19] MEDS ORDERED: D50W (25GM) Syringe IV ONE (07:04)
[2017-08-19] MEDS ORDERED: D5NS 1,000 ML IV SCH (08:00)
--- NOTE | 2017-08-19 09:16 | Gastroenterology Progress Note ---
Assessment and Plan GI: h/o HIV/AIDS w/ cirrhosis, recent PUD - pt reported abdominal pain on admission now improved - h/h stable - continue PPI (reports wasn't on as outpt)/Carafate - advance diet Liver: cirrhosis w/ increase LFT's - stable, no changes - otherwise ok to d/c from GI standpoint - will follow Subjective Date of service: 08/19/17 Interval history: - reports abdominal pain improved, denies GI symptoms Objective - Constitutional Vitals: Temp Pulse Resp BP Pulse Ox 97.3 F L 70 19 106/56 80 L 08/19/17 07:31 08/19/17 07:31 08/19/17 07:31 08/19/17 07:31 08/19/17 07:31 General appearance: no acute distress - EENT Eyes: PERRL - Respiratory Respiratory: bilateral: CTA - Cardiovascular Rhythm: regular Heart Sounds: Present: S1 & S2 - Gastrointestinal General gastrointestinal: Present: soft, non-tender, non-distended - Labs CBC & Chem 7: 08/19/17 05:49 08/19/17 05:49 Labs: Laboratory Results - last 24 hr 08/18/17 08/18/17 08/19/17 13:24 19:48 05:49 WBC 2.2 L RBC 2.63 L Hgb 8.8 L 8.6 L 9.0 L Hct 27.4 L 26.7 L 27.3 L MCV 104 H MCH 34 H MCHC 33 RDW 23.3 H PT INR Sodium Potassium Chloride Carbon Dioxide Anion Gap BUN Creatinine Estimated GFR BUN/Creatinine Ratio Glucose POC Glucose Calcium 08/19/17 08/19/17 08/19/17 05:49 05:49 07:03 WBC RBC Hgb Hct MCV MCH MCHC RDW PT 29.7 H INR 2.61 H Sodium 132 L Potassium 4.2 Chloride 99.3 Carbon Dioxide 26 Anion Gap 11 BUN 7 L Creatinine 0.5 L Estimated GFR > 60 BUN/Creatinine Ratio 14 Glucose 38 L* POC Glucose < 40 L Calcium 7.5 L
[2017-08-19] MEDS: PROTONIX IV SCH ×2 (09:21→22:40)
[2017-08-19] MEDS: XIFAXAN PO SCH ×2 (09:21→22:40)
[2017-08-19] MEDS: BACTRIM DS PO SCH (09:21)
[2017-08-19 09:44] LABS: Anisocytosis 1+; Basophils % (Manual) 0 % (0.0-1.8); Macrocytosis 1+; Poikilocytosis 1+; Total Cells Counted 100
[2017-08-19 09:45] LABS: Dimorphic RBC Yes; Ovalocytes 1+; Platelet Count 41 K/mm3 (140-440); Platelet Estimate Appears Decreased
[2017-08-19] MEDS: SODIUM CHLORIDE FLUSH SYRINGE 10 ML IV SCH ×2 (09:47→22:40)
--- NOTE | 2017-08-19 10:17 | Progress Note ---
Hospitalist Physical - Constitutional Vitals: Temp Pulse Resp BP Pulse Ox 97.3 F L 70 19 106/56 80 L 08/19/17 07:31 08/19/17 07:31 08/19/17 07:31 08/19/17 07:31 08/19/17 07:31 Results - Labs CBC & Chem 7: 08/19/17 05:49 08/19/17 05:49 Labs: Laboratory Last Values WBC 2.2 K/mm3 (4.5-11.0) L 08/19/17 05:49 RBC 2.63 M/mm3 (3.65-5.03) L 08/19/17 05:49 Hgb 9.0 gm/dl (11.8-15.2) L 08/19/17 05:49 Hct 27.3 % (35.5-45.6) L 08/19/17 05:49 MCV 104 fl (84-94) H 08/19/17 05:49 MCH 34 pg (28-32) H 08/19/17 05:49 MCHC 33 % (32-34) 08/19/17 05:49 RDW 23.3 % (13.2-15.2) H 08/19/17 05:49 Plt Count 41 K/mm3 (140-440) L 08/19/17 05:49 [place] % (Auto) [employer] 08/17/17 17:32 Add Manual Diff Complete 08/19/17 05:49 Total Counted 100 08/19/17 05:49 Seg Neuts % (Manual) 69.0 % (40.0-70.0) 08/19/17 05:49 Band Neutrophils % 0 % 08/19/17 05:49 Lymphocytes % (Manual) 27.0 % (13.4-35.0) 08/19/17 05:49 Reactive Lymphs % (Man) 0 % 08/19/17 05:49 Monocytes % (Manual) 3.0 % (0.0-7.3) 08/19/17 05:49 Eosinophils % (Manual) 1.0 % (0.0-4.3) 08/19/17 05:49 Basophils % (Manual) 0 % (0.0-1.8) 08/19/17 05:49 Metamyelocytes % 0 % 08/19/17 05:49 Myelocytes % 0 % 08/19/17 05:49 Promyelocytes % 0 % 08/19/17 05:49 Blast Cells % 0 % 08/19/17 05:49 Nucleated RBC % Not Reportable 08/19/17 05:49 Seg Neutrophils # Man 1.5 K/mm3 (1.8-7.7) L 08/19/17 05:49 Band Neutrophils # 0.0 K/mm3 08/19/17 05:49 Lymphocytes # (Manual) 0.6 K/mm3 (1.2-5.4) L 08/19/17 05:49 Abs React Lymphs (Man) 0.0 K/mm3 08/19/17 05:49 Monocytes # (Manual) 0.1 K/mm3 (0.0-0.8) 08/19/17 05:49 Eosinophils # (Manual) 0.0 K/mm3 (0.0-0.4) 08/19/17 05:49 Basophils # (Manual) 0.0 K/mm3 (0.0-0.1) 08/19/17 05:49 Metamyelocytes # 0.0 K/mm3 08/19/17 05:49 Myelocytes # 0.0 K/mm3 08/19/17 05:49 Promyelocytes # 0.0 K/mm3 08/19/17 05:49 Blast Cells # 0.0 K/mm3 08/19/17 05:49 WBC Morphology Not Reportable 08/19/17 05:49 Hypersegmented Neuts Not Reportable 08/19/17 05:49 Hyposegmented Neuts Not Reportable 08/19/17 05:49 Hypogranular Neuts Not Reportable 08/19/17 05:49 Smudge Cells Not Reportable 08/19/17 05:49 Toxic Granulation Not Reportable 08/19/17 05:49 Toxic Vacuolation Not Reportable 08/19/17 05:49 Dohle Bodies Not Reportable 08/19/17 05:49 Pelger-Huet Anomaly Not Reportable 08/19/17 05:49 Wellington Rods Not Reportable 08/19/17 05:49 Platelet Estimate Appears decreased 08/19/17 05:49 Clumped Platelets Not Reportable 08/19/17 05:49 Plt Clumps, EDTA Not Reportable 08/19/17 05:49 Large Platelets Not Reportable 08/19/17 05:49 Giant Platelets Not Reportable 08/19/17 05:49 Platelet Satelliting Not Reportable 08/19/17 05:49 Plt Morphology Comment Not Reportable 08/19/17 05:49 RBC Morphology Not Reportable 08/19/17 05:49 Dimorphic RBCs Yes 08/19/17 05:49 Polychromasia Few 08/19/17 05:49 Hypochromasia Not Reportable 08/19/17 05:49 Poikilocytosis 1+ 08/19/17 05:49 Anisocytosis 1+ 08/19/17 05:49 Microcytosis Not Reportable 08/19/17 05:49 Macrocytosis 1+ 08/19/17 05:49 Spherocytes Not Reportable 08/19/17 05:49 Pappenheimer Bodies Not Reportable 08/19/17 05:49 Sickle Cells Not Reportable 08/19/17 05:49 Target Cells Not Reportable 08/19/17 05:49 Tear Drop Cells Not Reportable 08/19/17 05:49 Ovalocytes 1+ 08/19/17 05:49 Helmet Cells Not Reportable 08/19/17 05:49 Roberts-Bally Bodies Not Reportable 08/19/17 05:49 Keller Rings Not Reportable 08/19/17 05:49 Murray Cells Not Reportable 08/19/17 05:49 Bite Cells Not Reportable 08/19/17 05:49 Crenated Cell Not Reportable 08/19/17 05:49 Elliptocytes Not Reportable 08/19/17 05:49 Acanthocytes (Spur) Not Reportable 08/19/17 05:49 Rouleaux Not Reportable 08/19/17 05:49 Hemoglobin C Crystals Not Reportable 08/19/17 05:49 Schistocytes Not Reportable 08/19/17 05:49 Malaria parasites Not Reportable 08/19/17 05:49 Roney Bodies Not Reportable 08/19/17 05:49 Hem Pathologist Commnt No 08/19/17 05:49 PT 29.7 Sec. (12.2-14.9) H 08/19/17 05:49 INR 2.61 (0.87-1.13) H 08/19/17 05:49 APTT 47.7 Sec. (24.2-36.6) H 08/18/17 03:28 Sodium 132 mmol/L (137-145) L 08/19/17 05:49 Potassium 4.2 mmol/L (3.6-5.0) 08/19/17 05:49 Chloride 99.3 mmol/L (98-107) 08/19/17 05:49 Carbon Dioxide 26 mmol/L (22-30) 08/19/17 05:49 Anion Gap 11 mmol/L 08/19/17 05:49 BUN 7 mg/dL (9-20) L 08/19/17 05:49 Creatinine 0.5 mg/dL (0.8-1.5) L 08/19/17 05:49 Estimated GFR > 60 ml/min 08/19/17 05:49 BUN/Creatinine Ratio 14 % 08/19/17 05:49 Glucose 38 mg/dL (75-100) L* 08/19/17 05:49 POC Glucose 119 (70-105) H 08/19/17 09:22 Calcium 7.5 mg/dL (8.4-10.2) L 08/19/17 05:49 Total Bilirubin 5.10 mg/dL (0.1-1.2) H 08/17/17 17:32 AST 215 units/L (5-40) H 08/17/17 17:32 ALT 102 units/L (7-56) H 08/17/17 17:32 Alkaline Phosphatase 139 units/L (35-129) H 08/17/17 17:32 Total Protein 6.8 g/dL (6.3-8.2) 08/17/17 17:32 Albumin 1.2 g/dL (3.9-5) L 08/17/17 17:32 Albumin/Globulin Ratio 0.2 % 08/17/17 17:32 Lipase 157 units/L (13-60) H 08/18/17 03:28 Urine Color Juliana (Yellow) 08/18/17 07:08 Urine Turbidity Clear (Clear) 08/18/17 07:08 Urine pH 6.0 (5.0-7.0) 08/18/17 07:08 Ur Specific [place] 1.009 (1.003-1.030) 08/18/17 07:08 Urine Protein <15 mg/dl mg/dL (Negative) 08/18/17 07:08 Urine Glucose (UA) Neg mg/dL (Negative) 08/18/17 07:08 Urine Ketones Neg mg/dL (Negative) 08/18/17 07:08 Urine Blood Mod (Negative) 08/18/17 07:08 Urine Nitrite Neg (Negative) 08/18/17 07:08 Urine Bilirubin Sm (Negative) 08/18/17 07:08 Urine Ictotest Positive (Negative) 08/18/17 07:08 Urine Urobilinogen 4.0 mg/dL (<2.0) 08/18/17 07:08 Ur Leukocyte Esterase Tr (Negative) 08/18/17 07:08 Urine WBC (Auto) 4.0 /HPF (0.0-6.0) 08/18/17 07:08 Urine RBC (Auto) 22.0 /HPF (0.0-6.0) 08/18/17 07:08 Calcium Oxalate Crystal Few 08/18/17 07:08 Urine Mucus Few /HPF 08/18/17 07:08 Blood Type O POSITIVE 08/18/17 03:28 Antibody Screen Negative 08/18/17 03:28 Crossmatch See Detail 08/18/17 03:28
[2017-08-19] MEDS ORDERED: BENADRYL IV PRN (14:33)
--- NOTE | 2017-08-19 16:41 | Consultation ---
REFERRING PHYSICIAN: Jacky Bernard MD INDICATION: 1. Jaundice. 2. Liver disease. 3. Anemia. HISTORY OF PRESENT ILLNESS: The patient is a 56-year-old HIV/AIDS patient with a history of cirrhosis and coagulopathy. The patient was recently admitted and during his hospital course, the EGD showed peptic ulcer disease. The patient was discharged 5 days ago. The patient reports some shortness of breath and upper abdominal pain with worsening jaundice. He reports no fevers or chills. Denies any weight loss or other specific GI complaints. PAST MEDICAL HISTORY: 1. COPD. 2. HIV/AIDS. 3. Liver disease. 4. Peptic ulcer disease. MEDICATIONS: See chart. ALLERGIES: No known drug allergies. SOCIAL HISTORY: Denies alcohol, tobacco or IV drug abuse. FAMILY HISTORY: Negative for colon cancer. REVIEW OF SYSTEMS: GENERAL: Weakness. HEENT: No visual complaints or tinnitus. PULMONARY: Shortness of breath. No cough. No chest pain. GASTROINTESTINAL: Reports abdominal pain. All points of 13-point review of systems otherwise negative. PHYSICAL EXAMINATION: VITAL SIGNS: Temperature of 97.8, pulse 71, respiration 19, blood pressure 130/80. GENERAL: Fairly thin black male in no acute distress. HEENT: Pupils equal, round and reactive. PULMONARY: Clear to auscultation bilaterally. CARDIOVASCULAR: Regular rhythm. Normal S1, S2. ABDOMEN: Positive bowel sounds, soft. SKIN: No obvious rashes. LABORATORY DATA: Labs pertinent for white count 3.8, hemoglobin and hematocrit of 7.7 and 24.1, platelet count of 51. Chem-7, sodium of 127, potassium 3.8, chloride 94, CO2 of 28, BUN and creatinine of 9 and 0.6, total bilirubin of 5, AST, ALT of 215 and 102 with an alkaline phosphatase of 139. ASSESSMENT AND PLAN: A 56-year-old male with medical problems as noted above, admitted with abdominal pain. The patient was noted to be hyponatremic. The patient with no obvious signs of GI blood loss. Labs for the most part are unchanged since his recent admission. Management is noted below. PLAN: 1. Follow hematocrit and transfuse as needed. 2. PPI, IV b.i.d. with Carafate suspension daily. 3. Hyponatremia per primary team. 4. HIV per primary team. 5. No plans for EGD at this time. 6. If patient is stable in a.m., okay to discharge from GI standpoint. JOB# [id number] JAMES/MAYITO ARRIAGA
[2017-08-20] MEDS: CARAFATE PO SCH ×2 (00:10→06:21)
[2017-08-20] MEDS: MORPHINE IV PRN (02:24)
--- NOTE | 2017-08-20 08:28 | Discharge Summary ---
Providers - Providers Date of Admission: 08/18/17 08:00 Date of discharge: 08/20/17 Attending physician: ROBERT ESPANA 08/18/17 04:17 Consult to Physician [CONS] Urgent Comment: Consulting Provider: DONNA PIKE Physician Instructions: Reason For Exam: hep b, cirrhosis, anemia, Primary care physician: ABSTRACTER Hospitalization Condition: Fair Disposition: DC-01 TO HOME OR SELFCARE Core Measure Documentation - Palliative Care Palliative Care/ Comfort Measures: Not Applicable - Core Measures Any of the following diagnoses?: none Exam - Constitutional Vitals: Temp Pulse Resp BP Pulse Ox 98.4 F 78 20 110/65 95 08/19/17 21:01 08/19/17 21:01 08/20/17 02:24 08/19/17 21:01 08/19/17 21:01 Plan Activity: advance as tolerated Diet: regular Additional Instructions: 1.Follow up with PCP or [facility] in 1 week. 2.Follow up with Dr. Lazo in 1 week. Follow up with: PRIMARY MD FISH [Primary Care Provider] - 3-5 Days
[2017-08-20 08:35] VITALS: BP 113/59
[2017-08-20] MEDS: XIFAXAN PO SCH (10:31)
[2017-08-20] MEDS: BACTRIM DS PO SCH (10:32)
[2017-08-20] MEDS: SODIUM CHLORIDE FLUSH SYRINGE 10 ML IV SCH (10:32)
[2017-08-20] MEDS: PROTONIX IV SCH (10:33)
== END 2017-08-20 11:30 | disposition home or self-care (01) | DRG 432 ==
LOC: ED 16:41 → 3A 08-18 08:00 → UNDOADMIN 08-18 12:18 → 3A 08-18 12:18
PROVIDERS: ADMIT Internal Medicine; ATTEND Internal Medicine
PROC: 30233N1 Transfusion of Nonautologous Red Blood Cells into Peripheral Vein, Percutaneous Approach (ICD-10-PCS; principal; 2017-08-18)
DX: K74.60 Unspecified cirrhosis of liver (principal); B20 Human immunodeficiency virus [HIV] disease; B19.10 Unspecified viral hepatitis B without hepatic coma; E87.1 Hypo-osmolality and hyponatremia; D68.4 Acquired coagulation factor deficiency; J44.9 Chronic obstructive pulmonary disease, unspecified; D64.9 Anemia, unspecified; D69.6 Thrombocytopenia, unspecified; Z79.899 Other long term (current) drug therapy
CPT/HCPCS: 36415; 71046; 80048; 80053; 81001; 82271; 82962; 83690; 85007; 85014; 85018; 85025; 85610; 85730; 86850; 86900; 86901; 86920; 93005; 93010; 96374; 96375; C9113; J1200; J2270; J2405; J7030; J7040; J7042; P9016; P9047